=== PATIENT | female | born 1970 | race Caucasian/White ===

== ENCOUNTER 2016-09-28 10:56 | Outpatient (CLI) | payer MEDICARE, MEDICAID | END 2016-09-28 10:57 | disposition home or self-care (01) | DX: R10.9 Unspecified abdominal pain (principal); K76.0 Fatty (change of) liver, not elsewhere classified ==

== ENCOUNTER 2016-09-28 19:23 | Emergency (ER) | payer MEDICARE, MEDICAID ==
[2016-09-28] MEDS ORDERED: traMADol 50 MG TABLET PO STA (20:59)
[2016-09-28] MEDS ORDERED: CLINDAMYCIN 150 MG CAPSULE PO STA (21:00)
[2016-09-28] MEDS ORDERED: traMADol 50 MG TABLET PO ONE (21:06)
[2016-09-28] MEDS ORDERED: CLINDAMYCIN 150 MG CAPSULE PO ONE (21:07)
== END 2016-09-28 21:40 | disposition home or self-care (01) ==
DX: N90.7 Vulvar cyst (principal); B37.3 Candidiasis of vulva and vagina; F17.200 Nicotine dependence, unspecified, uncomplicated; R10.9 Unspecified abdominal pain; K76.0 Fatty (change of) liver, not elsewhere classified
CPT/HCPCS: 76700; 87210; 87491; 87591; 99283; A9270

== ENCOUNTER 2016-10-04 13:34 | Outpatient (CLI) | payer MEDICARE, MEDICAID | END 2016-10-04 13:35 | disposition home or self-care (01) | DX: R10.9 Unspecified abdominal pain (principal) ==

== ENCOUNTER 2017-01-30 11:04 | Outpatient (CLI) | payer MEDICARE, MEDICAID ==
--- NOTE | 2017-01-30 15:52 | Mammography Report ---
DIGITAL BILATERAL DIAGNOSTIC MAMMOGRAM: 01/30/2017 CLINICAL HISTORY: A 46-year-old female who has pain in the 10 to 11 o'clock position of the left breast. TECHNIQUE: Craniocaudad and oblique lateral views of each breast were obtained with Hologic full-field digital mammography. To complement the exam, a mediolateral view of the left breast was also obtained. COMPARISON: 12/04/2008 FINDINGS: Breasts are almost entirely composed of fat. No significant clusters of calcification are seen. There is a 0.5 cm diameter well circumscribed benign- appearing mass in the inner inferior aspect of the left breast at the 9 o'clock position 6-7 cm medial to the left nipple. This finding was present on preceding exam. It most likely represents a benign Intramammary lymph node. Considering patient does have clinical symptoms in the breast, suggest a left breast ultrasound to complement the present study. Ultrasound can show abnormalities not demonstrable mammography, especially in patients who are clinically asymptomatic. IMPRESSION: NO SIGNIFICANT ABNORMALITY IS DETECTED ON MAMMOGRAPHY. NO SIGNIFICANT CHANGE IS NOTED COMPARED TO 12/04/2008. FOR REASONS DISCUSSED ABOVE, RECOMMEND A LEFT BREAST ULTRASOUND TO COMPLEMENT THE PRESENT EXAM. BI-RADS category 0, incomplete. Needs additional imaging evaluation - left breast ultrasound. COMMENT: Patient did not want to wait today for the left breast ultrasound. She indicated she will call and reschedule the left breast ultrasound for another day. STANDARD QUALIFYING STATEMENTS 1. This examination was reviewed with the aid of Computer-Aided Detection (CAD). 2. A negative or benign imaging report should not delay biopsy if clinically suspicious findings are present. Consider surgical consultation if warranted. More than 5% of cancers are not identified by imaging. 3. Dense breasts may obscure an underlying neoplasm. MTDD
== END 2017-01-30 11:05 | disposition home or self-care (01) ==
LOC: DI 11:04
PROVIDERS: ATTEND Nurse Practitioner Gerontology
DX: N64.4 Mastodynia (principal); N63 Unspecified lump in breast
CPT/HCPCS: 77066

== ENCOUNTER 2017-02-20 10:04 | Outpatient (CLI) | payer MEDICARE, MEDICAID ==
--- NOTE | 2017-02-20 15:47 | Ultrasound Report ---
ULTRASOUND LEFT BREAST: 02/20/2017 CLINICAL INDICATION: Localized tenderness left upper inner quadrant. TECHNIQUE: Real-time scanning was performed with ambulatory services representative static images obtained. FINDINGS: Ultrasound of the region of tenderness identified by the patient was performed. Unremarka ble parenchymal lobules are present. No discrete solid or cystic lesion is identified. IMPRESSION: NEGATIVE EXAMINATION. RECOMMENDATION: Routine annual screening unless otherwise clinically indicated. BI-RADS category 1, negative. STANDARD QUALIFYING STATEMENTS 1. This examination was reviewed with the aid of Computer-Aided Detection (CAD). 2. A negative or benign imaging report should not delay biopsy if clinically suspicious findings are present. Consider surgical consultation if warranted. More than 5% of cancers are not identified by i maging. 3. Dense breasts may obscure an underlying neoplasm. JOB #: [id number] EXT JOB #:
== END 2017-02-20 10:05 | disposition home or self-care (01) ==
LOC: DI 10:04
PROVIDERS: ATTEND Nurse Practitioner Gerontology
DX: N64.4 Mastodynia (principal)
CPT/HCPCS: 76642

== ENCOUNTER 2017-03-31 11:48 | Outpatient (CLI) | payer MEDICARE, MEDICAID ==
[2017-03-31 19:12] LABS: ALBUMIN/GLOBULIN RATIO 1.4 (1.0-2.2); BILIRUBIN,TOTAL 0.2 mg/dL (0.2-1.0); BUN - BLOOD UREA NITROGEN < 5 mg/dL (6-20); CALCIUM 8.8 mg/dL (8.5-10.3); CARBON DIOXIDE - CO2 25 mmol/L (21-32); CHLORIDE 106 mmol/L (101-111); CREATININE 0.9 mg/dL (0.4-1.0); GFR - MDRD 67 (>89); GLUCOSE 85 mg/dL (70-100); POTASSIUM 4.2 mmol/L (3.5-5.0); SODIUM 137 mmol/L (135-145); TOTAL PROTEIN 7.2 g/dL (6.7-8.2)
== END 2017-03-31 11:49 | disposition home or self-care (01) ==
LOC: LAB.N 11:48
PROVIDERS: ATTEND Nurse Practitioner Gerontology
DX: Z79.899 Other long term (current) drug therapy (principal)
CPT/HCPCS: 36415; 80053; 80178; 84443

== ENCOUNTER 2017-05-22 23:24 | Emergency (ER) | payer MEDICARE, MEDICAID ==
--- NOTE | 2017-05-22 23:44 | ED Physician Documentation ---
PD HPI LOWER EXT INJURY - Stated complaint Stated Complaint: LT FOOT INJURY - Chief complaint Chief Complaint: Trauma Ext - History obtained from History obtained from: Patient - History of Present Illness PD HPI LOW EXT INJURY LOCATION: Left, Foot Type of injury: Crush Where injury occurred: Home Timing - onset: Today (tonight) Timing - details: Abrupt onset Pain level now: 4 Improved by: Rest Worsened by: Moving, Palpating Associated symptoms: Swelling Similar symptoms before: Has not had sx before - Additional information Additional information: dropped cases of bottled water on her left foot tonight, c/o left foot pain and swelling Review of Systems Musculoskeletal: reports: Extremity pain, Pain with weight bearing Neurologic: denies: Focal weakness, Numbness PD PAST MEDICAL HISTORY - Past Medical History Cardiovascular: None Respiratory: Asthma Neuro: None Endocrine/Autoimmune: None GI: GERD, 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 HEENT: None Psych: Bipolar disorder, Schizophrenia, Post traumatic stress disorder Musculoskeletal: Chronic back pain Derm: None - Past Surgical History Past Surgical History: Yes General: Appendectomy Ortho: 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 - Present Medications Home Medications: Ambulatory Orders Medication Instructions Recorded Confirmed Albuterol [Ventolin Hfa] 2 puffs INH Q4H PRN #1 inhaler 05/30/13 05/22/17 Lamotrigine [Lamictal] 100 mg ORAL DAILY 09/09/15 05/22/17 Mupirocin 2% Oint [Bactroban 2% 1 gm WILY BID #1 tube 09/09/15 05/22/17 Oint] Prazosin [Minipress] 2 mg ORAL QPM 09/09/15 05/22/17 QUEtiapine [SEROquel] 50 mg ORAL QPM 09/09/15 05/22/17 Ranitidine HCl [Zantac] 150 mg ORAL BID 09/09/15 05/22/17 Ziprasidone HCl 80 mg ORAL QPM 09/09/15 05/22/17 Albuterol Sulfate [Proair Hfa 8.5 gm IH QID #1 hfa.aer.ad 09/20/15 05/22/17 Inhaler] predniSONE [Deltasone] 40 mg PO DAILY 5 Days 09/20/15 05/22/17 Clindamycin HCl 300 mg PO Q6HR 10 Days 12/22/15 05/22/17 Lorazepam [Ativan] 1 mg PO TID PRN #10 tablet 06/16/16 05/22/17 Magic Mouthwash 10 ml PO Q4H PRN #200 ml 07/11/16 05/22/17 Fluconazole [Diflucan] 150 mg PO ONCE #1 tablet 09/28/16 05/22/17 Tramadol HCl 50 mg PO Q6H PRN #15 tablet 09/28/16 05/22/17 - Allergies Allergies/Adverse Reactions: Allergies Allergy/AdvReac Type Severity Reaction Status Date / Time amoxicillin [Amoxicillin] Allergy Intermediate Emesis Verified 05/22/17 23:26 NSAIDS (Non-Steroidal Allergy Unknown Verified 05/22/17 23:26 Anti-Inflamma naproxen [From Naprosyn] AdvReac Intermediate Hives Verified 05/22/17 23:26 hydrocodone bitartrate * AdvReac Emesis Verified 05/22/17 23:26 [From Vicodin] - Social History Does the pt smoke?: Yes Smoking Status: Current every day smoker Does the pt drink ETOH?: No Does the pt have substance abuse?: No - Immunizations Immunizations are current?: Yes - POLST Patient has POLST: No PD ED PE NORMAL - Vitals Vital signs reviewed: Yes - General General: Alert and oriented X 3, No acute distress, Well developed/nourished - Extremities Extremities: Normal ROM s pain PD ED PE EXPANDED - Extremities Feet visual: 1 - abrasion, swelling, tenderness Results - Vitals Vitals: Vital Signs - 24 hr 05/22/17 05/23/17 23:25 00:39 Temperature 35.8 C L Heart Rate 109 H 90 Respiratory 17 16 Rate Blood Pressure 128/86 H 124/70 O2 Saturation 97 100 Oxygen O2 Source Room air - Rads (name of study) left foot xrays Radiology: Prelim report reviewed, See rad report PD MEDICAL DECISION MAKING - ED course Complexity details: reviewed results, re-evaluated patient, considered differential, d/w patient, d/w family Departure - Departure Disposition: 01 Home, Self Care Clinical Impression: Injury of foot, Abrasion Condition: Good Instructions: ED Abrasion, ED Contusion Foot Discharge Date/Time: 05/23/17 00:40
--- NOTE | 2017-05-23 00:06 | XRAY Preliminary Report ---
Exam: XR Foot 3 View LT IMPRESSION: 1. No evidence for fractures. 2. Slight irregularity of the medial navicular which is stable since 03/19/2015. [facility] SITE ID: [id number]
--- NOTE | 2017-05-23 00:15 | XRAY Report ---
EXAM: LEFT FOOT RADIOGRAPHY EXAM DATE: 05/22/2017 11:48 PM. CLINICAL HISTORY: Dropped 2 cases of bottled water. COMPARISON: 03/19/2015. TECHNIQUE: 3 views. FINDINGS: Bones: Normal. No fractures or bone lesions. Slight irregularity of the medial navicular, stable sinc e 03/19/2015. Joints: Normal. No subluxations. Soft Tissues: Normal. No soft tissue swelling. IMPRESSION: 1. No evidence for fractures. 2. Slight irregularity of the medial navicular which is stable since 03/19/2015. [facility] Referring Provider Line: [phone] SITE ID: [id number]
[2017-05-23] MEDS ORDERED: IBUPROFEN 600 MG TABLET PO STA (00:24)
[2017-05-23] MEDS ORDERED: BACITRACIN OINT TOP STA (00:29)
[2017-05-23] MEDS ORDERED: HYDROcod/ACET 5/325 Prepack 6 PO STA (00:29)
[2017-05-23] MEDS ORDERED: HYDROcod/ACET 5/325 Prepack 6 PO ONE (00:35)
[2017-05-23] MEDS ORDERED: IBUPROFEN 600 MG TABLET PO ONE (00:35)
[2017-05-23 00:40] VITALS: BP 124/70
== END 2017-05-23 00:40 | disposition home or self-care (01) ==
LOC: ED 23:24
DX: S90.812A Abrasion, left foot, initial encounter (principal); W22.8XXA Striking against or struck by other objects, initial encounter; Y92.009 Unspecified place in unspecified non-institutional (private) residence as the place of occurrence of the external cause; F17.200 Nicotine dependence, unspecified, uncomplicated
CPT/HCPCS: 73630; 99283; A9270

== ENCOUNTER 2017-07-02 00:11 | Emergency (ER) | payer MEDICARE, MEDICAID ==
[2017-07-02 00:17] VITALS: BP 135/90
[2017-07-02] MEDS ORDERED: diphenhydrAMINE 25 MG CAPSULE PO STA (00:35)
[2017-07-02] MEDS ORDERED: diphenhydrAMINE 25 MG CAPSULE PO ONE (00:44)
--- NOTE | 2017-07-02 00:47 | ED Physician Documentation ---
PD HPI SKIN - Stated complaint Stated Complaint: L ARM PX - Chief complaint Chief Complaint: Ext Problem - History obtained from History obtained from: Patient, Family - History of Present Illness Timing - onset: Yesterday Timing - duration: Days Timing - details: Gradual onset, Still present Location: LUE Quality / character: Painful, Swelling Associated symptoms: No: Fever, Joint pain, Headache, Facial swelling Contributing factors: Exposed to medication Similar symptoms before: Has not had sx before Recently seen: Not recently seen - Additional information Additional information: Patient is a 47 year old female with no significant past medical history who is presenting to the emergency department for a reaction to multiple vaccines. Patient states that the had the pneumovax, shingles, tdap all on . patient states that she has still having pain, itching and worsening redness and swelling in the region so she came in for evaluation. Review of Systems Constitutional: denies: Fever, Chills Eyes: denies: Decreased vision Ears: denies: Ear pain Nose: denies: Congestion Throat: denies: Dental pain / toothache, Oral lesions / sores Cardiac: denies: Chest pain / pressure, Palpitations Respiratory: denies: Dyspnea, Cough, Wheezing GI: denies: Nausea, Vomiting : reports: Reviewed and negative Skin: reports: Rash, Lesions Musculoskeletal: reports: Extremity pain Neurologic: denies: Generalized weakness, Focal weakness, Numbness Immunocompromised: denies: Immunocompromised PD PAST MEDICAL HISTORY - Past Medical History Past Medical History: Yes Cardiovascular: None Respiratory: Asthma Neuro: None Endocrine/Autoimmune: None GI: GERD, 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 HEENT: None Psych: Bipolar disorder, Schizophrenia, Post traumatic stress disorder Musculoskeletal: Chronic back pain Derm: None - Past Surgical History Past Surgical History: Yes General: Appendectomy 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: 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 - Present Medications Home Medications: Ambulatory Orders Medication Instructions Recorded Confirmed Albuterol [Ventolin Hfa] 2 puffs INH Q4H PRN #1 inhaler 05/30/13 05/22/17 Lamotrigine [Lamictal] 100 mg ORAL DAILY 09/09/15 05/22/17 Mupirocin 2% Oint [Bactroban 2% 1 gm WILY BID #1 tube 09/09/15 05/22/17 Oint] Prazosin [Minipress] 2 mg ORAL QPM 09/09/15 05/22/17 QUEtiapine [SEROquel] 50 mg ORAL QPM 09/09/15 05/22/17 Ranitidine HCl [Zantac] 150 mg ORAL BID 09/09/15 05/22/17 Ziprasidone HCl 80 mg ORAL QPM 09/09/15 05/22/17 Albuterol Sulfate [Proair Hfa 8.5 gm IH QID #1 hfa.aer.ad 09/20/15 05/22/17 Inhaler] predniSONE [Deltasone] 40 mg PO DAILY 5 Days tablet 09/20/15 05/22/17 Clindamycin HCl 300 mg PO Q6HR 10 Days capsule 12/22/15 05/22/17 Lorazepam [Ativan] 1 mg PO TID PRN #10 tablet 06/16/16 05/22/17 Magic Mouthwash 10 ml PO Q4H PRN #200 ml 07/11/16 05/22/17 Fluconazole [Diflucan] 150 mg PO ONCE #1 tablet 09/28/16 05/22/17 Tramadol HCl 50 mg PO Q6H PRN #15 tablet 09/28/16 05/22/17 Cephalexin [Keflex] 500 mg PO Q6H 7 Days capsule 07/02/17 diphenhydrAMINE [Benadryl] 25 mg PO Q4-6H #20 capsule 07/02/17 - Allergies Allergies/Adverse Reactions: Allergies Allergy/AdvReac Type Severity Reaction Status Date / Time amoxicillin [Amoxicillin] Allergy Intermediate Emesis Verified 07/02/17 00:17 NSAIDS (Non-Steroidal Allergy Unknown Verified 07/02/17 00:17 Anti-Inflamma naproxen [From Naprosyn] AdvReac Intermediate Hives Verified 07/02/17 00:17 hydrocodone bitartrate * AdvReac Emesis Verified 07/02/17 00:17 [From Vicodin] - Social History Does the pt smoke?: Yes Smoking Status: Current every day smoker Does the pt drink ETOH?: No Does the pt have substance abuse?: No - Immunizations Immunizations are current?: Yes - POLST Patient has POLST: No PD ED PE NORMAL - Vitals Vital signs reviewed: Yes - General General: Alert and oriented X 3, No acute distress - HEENT HEENT: Atraumatic, PERRL - Neck Neck: Supple, no meningeal sign - Cardiac Cardiac: RRR, No murmur - Respiratory Respiratory: No respiratory distress, Clear bilaterally - Abdomen Abdomen: Soft, Non tender, Non distended - Neuro Neuro: Alert and oriented X 3, No motor deficit, No sensory deficit, Normal speech - Psych Psych: Normal mood, Normal affect PD ED PE EXPANDED - Extremities Extremities: Left arm (erythema tenderness and swelling of left posterior upper extremity, approximately 6cm by 4cm) Results - Vitals Vitals: Vital Signs - 24 hr 07/02/17 00:14 Temperature 36 C L Heart Rate 97 Respiratory 20 Rate Blood Pressure 135/90 H O2 Saturation 96 Oxygen O2 Source Room air PD MEDICAL DECISION MAKING - ED course Complexity details: reviewed old records, reviewed results, re-evaluated patient , considered differential, d/w patient, d/w family ED course: Patient was seen and examined at bedside. patient's arm was examined and was likely a localized reaction. Patient was treated with benadryl and given detailed discharge and return instructions. Patient required no further inpatient work up and was stable for discharge with outpatient follow up. Departure - Departure Disposition: 01 Home, Self Care Clinical Impression: Post-immunization reaction Condition: Good Instructions: ED Drug React Allergic Follow-Up: Cuca Glavin ARNP [Primary Care Provider] - Within 3 Days Prescriptions: Cephalexin [Keflex] 500 mg PO Q6H 7 Days capsule diphenhydrAMINE [Benadryl] 25 mg PO Q4-6H #20 capsule Comments: Your symptoms today are likely secondary to local reaction to the vaccines you received. While this is the most likely scenario, it could be an early skin infection. You will need to monitor the injection site and apply warm compresses. You can take benadryl as needed for itching. You should follow up at your appointment this week. You should not start antibiotics unless you get streaking redness, or are evaluated by your doctor. You may return to the emergency department at any time for worsening symptoms.
== END 2017-07-02 01:04 | disposition home or self-care (01) ==
LOC: ED 00:11
DX: M79.602 Pain in left arm (principal); T88.1XXA Other complications following immunization, not elsewhere classified, initial encounter; J45.909 Unspecified asthma, uncomplicated; K21.9 Gastro-esophageal reflux disease without esophagitis; F17.200 Nicotine dependence, unspecified, uncomplicated
CPT/HCPCS: 99283; A9270

== ENCOUNTER 2017-09-13 16:28 | Emergency (ER) | payer MEDICARE, MEDICAID ==
--- NOTE | 2017-09-13 16:56 | ED Physician Documentation ---
PD HPI ABD PAIN - Stated complaint Stated Complaint: AB/BACK PX - Chief complaint Chief Complaint: Abd Pain - History obtained from History obtained from: Patient - History of Present Illness Timing - onset: How many weeks ago (1) Timing - duration: Weeks (1) Timing - details: Gradual onset Pain level max: 8 Pain level now: 6 Quality: Aching, Pain Location: RUQ, RLQ Radiation: Other (non-radiating) Improved by: Laying still Worsened by: Moving, Palpation Associated symptoms: No: Fever, Nausea, Vomiting, Hematemesis, Diarrhea, Constipation, Melena, Hematochezia, Dysuria, Hematuria, Chest pain, Dizzy Similar symptoms before: Has not had sx before Recently seen: Not recently seen - Additional information Additional information: states normally has diarrhea, but lately has small firm stools. no fevers. Also slipped and fell on the ice a few days ago, but is having increased back pain now. 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 HEENT: None Psych: Bipolar disorder, Schizophrenia, Post traumatic stress disorder Musculoskeletal: Chronic back pain Derm: None - Past Surgical History Past Surgical History: Yes General: Appendectomy 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 - Present Medications Home Medications: Ambulatory Orders Medication Instructions Recorded Confirmed Mupirocin 2% Oint [Bactroban 2% 1 gm WILY BID #1 tube 09/09/15 09/13/17 Oint] Prazosin [Minipress] 2 mg ORAL QPM 09/09/15 09/13/17 QUEtiapine [SEROquel] 50 mg ORAL QPM 09/09/15 09/13/17 Ranitidine HCl [Zantac] 150 mg ORAL BID 09/09/15 09/13/17 Ziprasidone HCl 80 mg ORAL QPM 09/09/15 09/13/17 Albuterol Sulfate [Proair Hfa 8.5 gm IH QID #1 hfa.aer.ad 09/20/15 09/13/17 Inhaler] Lorazepam [Ativan] 1 mg PO TID PRN #10 tablet 06/16/16 09/13/17 Trazodone HCl 400 mg PO DAILY PM 09/13/17 09/13/17 traMADol [Ultram] 50 - 100 mg PO Q6H PRN #20 tablet 09/13/17 - Allergies Allergies/Adverse Reactions: Allergies Allergy/AdvReac Type Severity Reaction Status Date / Time amoxicillin [Amoxicillin] Allergy Intermediate Emesis Verified 09/13/17 16:34 NSAIDS (Non-Steroidal Allergy Unknown Verified 09/13/17 16:34 Anti-Inflamma naproxen [From Naprosyn] AdvReac Intermediate Hives Verified 09/13/17 16:34 hydrocodone bitartrate * AdvReac Emesis Verified 09/13/17 16:34 [From Vicodin] - Social History Does the pt smoke?: Yes Smoking Status: Current every day smoker Does the pt drink ETOH?: No Does the pt have substance abuse?: No - Immunizations Immunizations are current?: Yes - POLST Patient has POLST: No PD ED PE NORMAL - Vitals Vital signs reviewed: Yes - General General: Alert and oriented X 3, No acute distress - HEENT HEENT: Moist mucous membranes - Neck Neck: Supple, no meningeal sign - Cardiac Cardiac: RRR - Respiratory Respiratory: No respiratory distress, Clear bilaterally - Abdomen Abdomen: Soft, Non distended, Other (TTP RUQ. + saldaña's sign) - Back Back: No CVA TTP, No spinal TTP - Derm Derm: Warm and dry, No rash - Extremities Extremities: No deformity, No tenderness to palpate, Normal ROM s pain, No edema - Neuro Neuro: Alert and oriented X 3, No motor deficit, No sensory deficit - Psych Psych: Normal mood, Normal affect Results - Vitals Vitals: Vital Signs - 24 hr 09/13/17 09/13/17 09/13/17 16:30 19:49 20:47 Temperature 36.0 C L 36.2 C L 36.6 C Heart Rate 102 H 88 98 Respiratory 18 16 18 Rate Blood Pressure 144/98 H 147/110 H 155/107 H O2 Saturation 99 94 97 Oxygen O2 Source Room air - Labs Labs: Laboratory Tests 09/13/17 09/13/17 09/13/17 16:42 17:20 17:20 WBC 12.0 H RBC 4.33 Hgb 12.1 Hct 36.9 L MCV 85.2 MCH 27.9 MCHC 32.8 RDW 22.6 H Plt Count 332 MPV 6.7 L Neut # 8.8 H Lymph # 2.4 [place] # 0.6 Eos # 0.1 Baso # 0.1 Absolute Nucleated RBC 0.01 Nucleated RBC % 0.1 Manual Slide Review Indicated Platelet Estimate NORMAL (130-450,000) Platelet Morphology NORMAL APPEARANCE RBC Morph Micro Appear 1+ TARGET CELLS Sodium 137 Potassium 4.1 Chloride 102 Carbon Dioxide 25 Anion Gap 10.0 BUN 8 Creatinine 0.9 Estimated GFR (MDRD) 67 L Glucose 104 H Calcium 9.2 Total Bilirubin 0.7 AST 24 ALT 27 Alkaline Phosphatase 81 Total Protein 7.7 Albumin 4.4 Globulin 3.3 Albumin/Globulin Ratio 1.3 Lipase 20 L Urine Color YELLOW Urine Clarity CLEAR Urine pH 6.0 Ur Specific [place] 1.025 Urine Protein NEGATIVE Urine Glucose (UA) NEGATIVE Urine Ketones NEGATIVE Urine Occult Blood NEGATIVE Urine Nitrite NEGATIVE Urine Bilirubin NEGATIVE Urine Urobilinogen 0.2 (NORMAL) Ur Leukocyte Esterase NEGATIVE Ur Microscopic Review NOT INDICATED Urine Culture Comments NOT INDICATED Urine HCG, Qual NEGATIVE - Rads (name of study) RUQ US Radiology: Prelim report reviewed, EMP read contemporaneously, See rad report ( Negative right upper quadrant ultrasound. ) CT abd/pelvis Radiology: Prelim report reviewed, EMP read contemporaneously, See rad report ( Fatty liver. No bowel obstruction, fluid collection or acute inflammatory process. ) PD MEDICAL DECISION MAKING - ED course Complexity details: reviewed results, re-evaluated patient, considered differential, d/w patient ED course: Patient is a 47 yo F with abd pain/back pain. Unclear etiology. Negative CT and US. Pain well controlled. Abdomen is soft, nontender nondistended on serial exam. She is well-appearing, nontoxic. Afebrile. No evidence of acute intra- abdominal abnormality. Will place on pain medications and see how she progresses. Patient counseled regarding signs and symptoms for which I believe and urgent re-evaluation would be necessary. Patient with good understanding of and agreement to plan and is comfortable going home at this time This document was made in part using voice recognition software. While efforts are made to proofread this document, sound alike and grammatical errors may occur. Departure - Departure Disposition: 01 Home, Self Care Clinical Impression: Abdominal pain Back pain Qualifiers: Back pain location: low back pain Chronicity: acute Back pain laterality: right Sciatica presence: without sciatica Qualified Code(s): M54.5 - Low back pain Condition: Good Instructions: ED Abdominal Pain Unkn Cause Follow-Up: Zan Ornelas MD [Primary Care Provider] - Prescriptions: traMADol [Ultram] 50 - 100 mg PO Q6H PRN #20 tablet PRN Reason: Abdominal Pain Comments: Return if you worsen. Do not drive or operate heavy machinery while taking tramadol. Discharge Date/Time: 09/13/17 20:55
[2017-09-13 16:58] LABS: BILIRUBIN,URINE NEGATIVE (NEGATIVE); GLUCOSE, URINE (UA) NEGATIVE (NEGATIVE); KETONES,URINE (UA) NEGATIVE (NEGATIVE); LEUKOCYTE ESTERASE, URINE NEGATIVE (NEGATIVE); NITRITE,URINE NEGATIVE (NEGATIVE); OCCULT BLOOD,URINE NEGATIVE (NEGATIVE); PROTEIN,URINE NEGATIVE (NEGATIVE); UROBILINOGEN,URINE 0.2 (NORMAL) E.U./dL (NORMAL)
[2017-09-13 17:02] LABS: CLARITY,URINE CLEAR (CLEAR); HCG UR QUAL NEGATIVE
[2017-09-13 17:30] LABS: BASOPHILS # (AUTO) 0.1 10^3/uL (0.0-0.1); BASOPHILS % (AUTO) 0.5 %; EOSINOPHILS # (AUTO) 0.1 10^3/uL (0.0-0.7); HGB - HEMOGLOBIN 12.1 g/dL (12.0-16.0); LYMPHOCYTES # (AUTO) 2.4 10^3/uL (1.5-3.5); LYMPHOCYTES % (AUTO) 20.1 %; MEAN CORPUSCULAR HEMOGLOBIN 27.9 pg (27.0-31.0); MEAN CORPUSCULAR HGB CONC 32.8 g/dL (32.0-36.0); MEAN CORPUSCULAR VOLUME 85.2 fL (81.0-99.0); MEAN PLATELET VOLUME 6.7 fL (7.9-10.8); MONOCYTES # (AUTO) 0.6 10^3/uL (0.0-1.0); MONOCYTES % (AUTO) 5.3 %; NEUTROPHILS # (AUTO) 8.8 10^3/uL (1.5-6.6); NEUTROPHILS % (AUTO) 73.1 %; PLT - PLATELET COUNT 332 10^3/uL (130-450); RED BLOOD COUNT 4.33 10^6/uL (4.20-5.40); RED CELL DISTRIBUTION WIDTH 22.6 % (12.0-15.0)
[2017-09-13 17:40] LABS: ALBUMIN 4.4 g/dL (3.2-5.5); ALBUMIN/GLOBULIN RATIO 1.3 (1.0-2.2); BILIRUBIN,TOTAL 0.7 mg/dL (0.2-1.0); CALCIUM 9.2 mg/dL (8.5-10.3); CREATININE 0.9 mg/dL (0.4-1.0); TOTAL PROTEIN 7.7 g/dL (6.7-8.2)
[2017-09-13 17:43] LABS: PLATELET ESTIMATE, MANUAL NORMAL (130-450,000) (NORMAL); PLATELET MORPHOLOGY NORMAL APPEARANCE (NORMAL)
[2017-09-13] MEDS ORDERED: MORPHINE 10 MG/ML VIAL IM STA (18:11)
[2017-09-13] MEDS ORDERED: IOPAMIDOL-300 100 ML VIAL ONE (19:19)
--- NOTE | 2017-09-13 19:27 | Ultrasound Report ---
EXAM: ABDOMEN ULTRASOUND LIMITED, RUQ EXAM DATE: 09/13/2017 07:06 PM. CLINICAL HISTORY: RUQ abd pain. COMPARISON: None. TECHNIQUE: Real-time scanning was performed with static images obtained. FINDINGS: Liver: Submitted images of liver demonstrate no focal lesions. Main portal vein flow: Hepatopetal. Gallbladder: No stones, wall thickening, or sonographic Whelan's sign. Biliary System: CBD measures 5 mm. No intrahepatic or extrahepatic ductal dilatation. Other: The visualized pancreas and right kidney are unremarkable. IMPRESSION: Negative right upper quadrant ultrasound. [facility] Referring Provider Line: [phone] SITE ID: [id number]
[2017-09-13] MEDS ORDERED: IOPAMIDOL-300 100 ML VIAL IVP ONE (19:44)
--- NOTE | 2017-09-13 20:37 | CT Report ---
EXAM: CT ABDOMEN AND PELVIS EXAM DATE: 09/13/2017 07:32 PM. CLINICAL HISTORY: R sided abd pain. COMPARISONS: 10/18/2013 CT abdomen and pelvis. TECHNIQUE: Routine helical CT imaging was performed through the abdomen and pelvis. IV contrast: ISOV UE 300 100mL. Enteric contrast: No. Reconstructions: Coronal and sagittal. In accordance with CT protocol optimization, one or more of the following dose reduction techniques w ere utilized for this exam: automated exposure control, adjustment of mA and/or KV based on patient s ize, or use of iterative reconstructive technique. FINDINGS: Lung Bases: Unremarkable. Liver: Decreased hepatic attenuation. No focal liver lesions. Gallbladder/Bile Ducts: Unremarkable. Spleen: Normal. Pancreas: Normal. Adrenal Glands: Normal. Kidneys: Normal. No masses or hydronephrosis. Peritoneal Cavity/Bowel: Normal. No free fluid, free air or adenopathy. No masses or acute inflammato ry process. The appendix is well visualized and normal. Pelvic Organs: Normal. The bladder and visualized pelvic organs are within normal limits. Vasculature: The uterus has been removed. No pelvic mass, lymphadenopathy or fluid collections. Bones: No significant abnormality. Other: Spinal stimulator leads noted at the T8-T9 level. IMPRESSION: 1. Fatty liver. 2. No bowel obstruction, fluid collection or acute inflammatory process. [facility] Referring Provider Line: [phone] SITE ID: [id number]
[2017-09-13] MEDS ORDERED: traMADol 50 MG TABLET PO STA (20:41)
[2017-09-13 20:48] VITALS: BP 155/107
== END 2017-09-13 20:55 | disposition home or self-care (01) ==
LOC: ED 16:28
DX: R10.11 Right upper quadrant pain (principal); R10.31 Right lower quadrant pain; M54.5 Low back pain; G89.29 Other chronic pain; F17.200 Nicotine dependence, unspecified, uncomplicated
CPT/HCPCS: 36415; 74177; 76705; 80053; 81003; 81025; 83690; 85025; 96372; 99283; 99284; A9270; Q9967; 81001; 87086

== ENCOUNTER 2017-09-21 15:15 | Outpatient (CLI) | payer MEDICARE, MEDICAID ==
[2017-09-21 19:13] LABS: BASOPHILS # (AUTO) 0.1 10^3/uL (0.0-0.1); BASOPHILS % (AUTO) 0.9 %; EOSINOPHILS # (AUTO) 0.2 10^3/uL (0.0-0.7); EOSINOPHILS % (AUTO) 2.2 %; LYMPHOCYTES # (AUTO) 2.8 10^3/uL (1.5-3.5); LYMPHOCYTES % (AUTO) 34.3 %; MEAN CORPUSCULAR HEMOGLOBIN 27.5 pg (27.0-31.0); MEAN CORPUSCULAR HGB CONC 31.7 g/dL (32.0-36.0); MEAN CORPUSCULAR VOLUME 86.9 fL (81.0-99.0); MEAN PLATELET VOLUME 7.3 fL (7.9-10.8); MONOCYTES # (AUTO) 0.5 10^3/uL (0.0-1.0); MONOCYTES % (AUTO) 6.1 %; NEUTROPHILS # (AUTO) 4.6 10^3/uL (1.5-6.6); NEUTROPHILS % (AUTO) 56.5 %; PLT - PLATELET COUNT 333 10^3/uL (130-450); RED BLOOD COUNT 4.35 10^6/uL (4.20-5.40); RED CELL DISTRIBUTION WIDTH 21.5 % (12.0-15.0); WHITE BLOOD COUNT 8.1 x10^3/uL (4.8-10.8)
[2017-09-21 19:26] LABS: PLATELET ESTIMATE, MANUAL NORMAL (130-450,000) (NORMAL); PLATELET MORPHOLOGY NORMAL APPEARANCE (NORMAL)
[2017-09-21 19:31] LABS: ALBUMIN 4.4 g/dL (3.2-5.5); ALBUMIN/GLOBULIN RATIO 1.3 (1.0-2.2); BILIRUBIN,TOTAL 0.2 mg/dL (0.2-1.0); CALCIUM 9.2 mg/dL (8.5-10.3); CREATININE 0.9 mg/dL (0.4-1.0); TOTAL PROTEIN 7.7 g/dL (6.7-8.2)
== END 2017-09-21 15:16 | disposition home or self-care (01) ==
LOC: LAB.WCP 15:15
PROVIDERS: ATTEND Family Medicine
DX: R19.7 Diarrhea, unspecified (principal)
CPT/HCPCS: 36415; 80053; 85025

== ENCOUNTER 2017-09-22 08:00 | Outpatient (CLI) | payer MEDICARE, MEDICAID | END 2017-09-22 08:01 | disposition home or self-care (01) | LOC: LAB.WCP 08:00 | PROVIDERS: ATTEND Family Medicine | DX: R19.7 Diarrhea, unspecified (principal) | CPT/HCPCS: 81599; 83630; 87045; 87046; 87329; 87493 ==

== ENCOUNTER 2018-01-15 12:05 | Emergency (ER) | payer MEDICARE, MEDICAID ==
[2018-01-15 12:14] VITALS: BP 115/80
--- NOTE | 2018-01-15 13:44 | ED Physician Documentation ---
PD HPI BACK PAIN - Stated complaint Stated Complaint: BACK PAIN - Chief complaint Chief Complaint: Back Pain - History obtained from History obtained from: Patient - History of Present Illness Timing - onset: How many weeks ago (1) Timing - duration: Weeks (1) Timing - details: Gradual onset, Still present, Waxing and waning Location: Lower, Right Quality: Pain, Spasm, Aching Associated symptoms: Other (pain radiates down right posterior leg. She has nerve stimulator which helps but it stopped working a week ago. Has been in for about 5-6 years, per pateint. Calling the back specialist in [facility] about it to get appt (consider battery needs replacing).). 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 : None HEENT: None Psych: Bipolar disorder, Schizophrenia, Post traumatic stress disorder Musculoskeletal: Chronic back pain Derm: None - Past Surgical History Past Surgical History: Yes General: Appendectomy Ortho: 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: 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 - Present Medications Home Medications: Ambulatory Orders Medication Instructions Recorded Confirmed Prazosin [Minipress] 2 mg ORAL QPM 09/09/15 09/13/17 QUEtiapine [SEROquel] 50 mg ORAL QPM 09/09/15 09/13/17 Ranitidine HCl [Zantac] 150 mg ORAL BID 09/09/15 09/13/17 Ziprasidone HCl 80 mg ORAL QPM 09/09/15 09/13/17 Albuterol Sulfate [Proair Hfa 8.5 gm IH QID #1 hfa.aer.ad 09/20/15 09/13/17 Inhaler] Lorazepam [Ativan] 1 mg PO TID PRN #10 tablet 06/16/16 09/13/17 Trazodone HCl 400 mg PO DAILY PM 09/13/17 09/13/17 traMADol [Ultram] 50 - 100 mg PO Q6H PRN #20 tablet 09/13/17 Dexamethasone [Decadron] 4 mg PO DAILY #5 tablet 01/15/18 Methocarbamol [Robaxin] 500 mg PO TID #20 tablet 01/15/18 Tramadol HCl 50 mg PO Q6H PRN #20 tablet 01/15/18 - Allergies Allergies/Adverse Reactions: Allergies Allergy/AdvReac Type Severity Reaction Status Date / Time amoxicillin [Amoxicillin] Allergy Intermediate Emesis Verified 01/15/18 12:13 NSAIDS (Non-Steroidal Allergy Unknown Verified 01/15/18 12:13 Anti-Inflamma naproxen [From Naprosyn] AdvReac Intermediate Hives Verified 01/15/18 12:13 hydrocodone bitartrate * AdvReac Emesis Verified 01/15/18 12:13 [From Vicodin] - Social History Does the pt smoke?: Yes Smoking Status: Current every day smoker Does the pt drink ETOH?: No Does the pt have substance abuse?: No - Immunizations Immunizations are current?: Yes - POLST Patient has POLST: No PD ED PE NORMAL - Vitals Vital signs reviewed: Yes - General General: Alert and oriented X 3, No acute distress, Well developed/nourished - Cardiac Cardiac: RRR, No murmur - Respiratory Respiratory: Clear bilaterally - Abdomen Abdomen: Soft, Non tender - Back Back: No CVA TTP, No spinal TTP (but is tender in lower lateral muscles, more on the right. ) - Derm Derm: Normal color, Warm and dry, No rash - Extremities Extremities: No deformity, No tenderness to palpate, Normal ROM s pain, No edema , No calf tenderness / cord - Neuro Neuro: Alert and oriented X 3, No motor deficit, Normal speech Results - Vitals Vitals: Oxygen O2 Source Room air PD MEDICAL DECISION MAKING - ED course Complexity details: reviewed old records (has not been to ER often and ALEJANDRA does not have abberant visits.), considered differential, d/w patient Departure - Departure Disposition: 01 Home, Self Care Clinical Impression: Acute exacerbation of chronic low back pain Condition: Stable Record reviewed to determine appropriate education?: Yes Instructions: ED Sciatica Prescriptions: Dexamethasone [Decadron] 4 mg PO DAILY #5 tablet Methocarbamol [Robaxin] 500 mg PO TID #20 tablet Tramadol HCl 50 mg PO Q6H PRN #20 tablet PRN Reason: Pain Comments: Continue usual medications. I had Robaxin muscle relaxant 3 times a day if needed for spasms and stiffness. Decadron anti-inflammatory daily for 5 more days and add Tylenol or tramadol if needed for pains. Follow-up with your back specialist, call for an appointment to see if they can fix the back stimulator. Discharge Date/Time: 01/15/18 14:07
[2018-01-15] MEDS ORDERED: traMADol 50 MG TABLET PO STA (13:55)
[2018-01-15] MEDS ORDERED: METHOCARBAMOL 500 MG TABLET PO STA (13:55)
[2018-01-15] MEDS ORDERED: DEXAMETHASONE 10 MG/ML VIAL PO STA (13:55)
== END 2018-01-15 14:07 | disposition home or self-care (01) ==
LOC: ED 12:05
DX: M54.5 Low back pain (principal); G89.29 Other chronic pain; F17.200 Nicotine dependence, unspecified, uncomplicated
CPT/HCPCS: 99283; A9270

== ENCOUNTER 2018-04-25 21:55 | Emergency (ER) | payer MEDICARE, MEDICAID ==
--- NOTE | 2018-04-25 22:04 | ED Physician Documentation ---
PD HPI BACK PAIN - Stated complaint Stated Complaint: POST SURGERY BACK PX - Chief complaint Chief Complaint: Back Pain - History obtained from History obtained from: Patient - History of Present Illness Timing - onset: How many weeks ago (1-2) Timing - details: Gradual onset, Waxing and waning Location: Lower, Right Quality: Pain Associated symptoms: No: Fever, Weakness, Numbness, Incontinent of urine, Unable to urinate, Incontinent of stool Improves with: Rest Worsened by: Movement, Palpation Recently seen: Other (see below) - Additional information Additional information: patient has had spinal cord stimulator in place for chronic back pain, and had the unit (but not the wires) replaced 2 weeks ago. Her post-operative pain was being managed with oxycodone and then tramadol. She says the pain in the area of the unit has gradually been worsening over the past 7-10 days and she feels the stimulator has been steadily bulging out from her back more and more, as well as displacing from the area it was inserted (she feels it is slowly moving laterally). Denies fever, denies injury. Called [facility] pain clinic earlier today (she says the procedure was performed in the clinic), but did not hear back from them. She then contacted [facility] (the device hand stamper), who recommended she come to ED for evaluation. Took tramadol tonight without relief. 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 HEENT: None Psych: Bipolar disorder, Schizophrenia, Post traumatic stress disorder Musculoskeletal: Chronic back pain Derm: None - Past Surgical History Past Surgical History: Yes General: Appendectomy 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 - Present Medications Home Medications: Ambulatory Orders Medication Instructions Recorded Confirmed Prazosin [Minipress] 2 mg ORAL QPM 09/09/15 09/13/17 QUEtiapine [SEROquel] 50 mg ORAL QPM 09/09/15 09/13/17 Ranitidine HCl [Zantac] 150 mg ORAL BID 09/09/15 09/13/17 Ziprasidone HCl 80 mg ORAL QPM 09/09/15 09/13/17 Albuterol Sulfate [Proair Hfa 8.5 gm IH QID #1 hfa.aer.ad 09/20/15 09/13/17 Inhaler] Lorazepam [Ativan] 1 mg PO TID PRN #10 tablet 06/16/16 09/13/17 Trazodone HCl 400 mg PO DAILY PM 09/13/17 09/13/17 traMADol [Ultram] 50 - 100 mg PO Q6H PRN #20 tablet 09/13/17 Dexamethasone [Decadron] 4 mg PO DAILY #5 tablet 01/15/18 Methocarbamol [Robaxin] 500 mg PO TID #20 tablet 01/15/18 Tramadol HCl 50 mg PO Q6H PRN #20 tablet 01/15/18 oxyCODONE/ACET 5/325 [Percocet 5 1 - 2 each PO Q6H PRN #14 tablet 04/26/18 mg/325 mg] - Allergies Allergies/Adverse Reactions: Allergies Allergy/AdvReac Type Severity Reaction Status Date / Time amoxicillin [Amoxicillin] Allergy Intermediate Emesis Verified 04/25/18 22:03 NSAIDS (Non-Steroidal Allergy Unknown Verified 04/25/18 22:03 Anti-Inflamma naproxen [From Naprosyn] AdvReac Intermediate Hives Verified 04/25/18 22:03 hydrocodone bitartrate * AdvReac Emesis Verified 04/25/18 22:03 [From Vicodin] - Social History Does the pt smoke?: Yes Smoking Status: Current every day smoker Does the pt drink ETOH?: No Does the pt have substance abuse?: No - Immunizations Immunizations are current?: Yes - POLST Patient has POLST: No PD ED PE NORMAL - Vitals Vital signs reviewed: Yes - General General: Alert and oriented X 3, No acute distress (NAD at rest, uncomfortable with palpation of lower back in area of the stimulator), Well developed/ nourished - Abdomen Abdomen: Soft, Non tender - Derm Derm: Normal color, Warm and dry, No rash - Neuro Neuro: Alert and oriented X 3, No motor deficit, No sensory deficit PD ED PE EXPANDED - Back Back visual: 1 - tenderness (incision site is C/D/I. the lower edge of the stimulator is palpable. There is no erythema, no abnormal tactile warmth, no fluctuance. There is tenderness with palpation of the area of the stimulator) Results - Vitals Vitals: Vital Signs - 24 hr 04/25/18 04/25/18 04/26/18 21:58 23:40 00:54 Temperature 36.4 C L 36.5 C Heart Rate 106 H 84 98 Respiratory 18 17 20 Rate Blood Pressure 139/97 H 104/75 148/85 H O2 Saturation 98 97 98 Oxygen O2 Source Room air - Rads (name of study) abdominal xray Radiology: Prelim report reviewed, See rad report PD MEDICAL DECISION MAKING - ED course Complexity details: reviewed results, re-evaluated patient, considered differential, d/w patient ED course: Given 10mg oxycodone, and on reevaluation, patient was standing at bedside and in NAD. She reported significant relief of pain, although still 5/10 (was 8/10) . Results of xray discussed, and physical exam is reassuring (does not suggest infection or acute neurologic or other emergent condition that would indicate further testing or treatment at this time). Encouraged to return if worse or other concerning signs/symptoms develop (such as fever, rash, weakness), and to call her doctor in the morning to arrange for next available appointment for reevaluation. - Sepsis Event Vital Signs: Vital Signs - 24 hr 04/25/18 04/25/18 04/26/18 21:58 23:40 00:54 Temperature 36.4 C L 36.5 C Heart Rate 106 H 84 98 Respiratory 18 17 20 Rate Blood Pressure 139/97 H 104/75 148/85 H O2 Saturation 98 97 98 Oxygen O2 Source Room air Departure - Departure Disposition: 01 Home, Self Care Clinical Impression: Pain due to nervous system prosthetic device, implant, or graft Condition: Good Instructions: ED Post Op Pain Prescriptions: oxyCODONE/ACET 5/325 [Percocet 5 mg/325 mg] 1 - 2 each PO Q6H PRN #14 tablet PRN Reason: Pain Comments: Contact the surgical group where the procedure was performed; they should reevaluate you as soon as possible. There does not appear to be an emergent problem tonight except for pain control, but you need to return to the emergency department if worse (such as worsening pain that is not controlled by the prescribed pain medication, redness at the surgical site, numbness or weakness, especially of your lower extremities, or fever of 100.4 or higher). Discharge Date/Time: 04/26/18 01:05
[2018-04-25] MEDS ORDERED: oxyCODONE 5 MG TABLET PO STA (22:36)
--- NOTE | 2018-04-25 23:48 | XRAY Report ---
Procedure Date: 04/25/2018 Accession Number: [id number] / [id number] Procedure: XR - Abdomen 1 View X-Ray CPT Code: 66909 FULL RESULT: EXAM: ABDOMEN RADIOGRAPHY EXAM DATE: 04/25/2018 11:18 PM. CLINICAL HISTORY: Nerve stimulator, assess leads. COMPARISON: XR ABDOMEN AP (KUB) 06/29/2011. TECHNIQUE: 1 view. FINDINGS: Bowel Gas Pattern: Within normal limits. No dilated loops. Other: Right midabdominal neurostimulator generator present. Wires appear intact with lead extending to the T9 level. IMPRESSION: Neurostimulator leads placed to T9 level. Nonobstructive bowel gas pattern. RADIA
[2018-04-26] MEDS ORDERED: oxyCODONE/ACET 5/325 Prepack 4 PO STA (00:51)
[2018-04-26 00:55] VITALS: BP 148/85
== END 2018-04-26 01:05 | disposition home or self-care (01) ==
LOC: ED 21:55
DX: T85.840A Pain due to nervous system prosthetic devices, implants and grafts, initial encounter (principal); F17.200 Nicotine dependence, unspecified, uncomplicated; J45.909 Unspecified asthma, uncomplicated
CPT/HCPCS: 74018; 99283; 99284; A9270

== ENCOUNTER 2018-05-18 09:18 | Outpatient (CLI) | payer MEDICARE, MEDICAID ==
[2018-05-18 09:38] LABS: BASOPHILS # (AUTO) 0.1 10^3/uL (0.0-0.1); BASOPHILS % (AUTO) 0.7 %; EOSINOPHILS # (AUTO) 0.1 10^3/uL (0.0-0.7); EOSINOPHILS % (AUTO) 1.8 %; HGB - HEMOGLOBIN 11.9 g/dL (12.0-16.0); LYMPHOCYTES # (AUTO) 2.4 10^3/uL (1.5-3.5); LYMPHOCYTES % (AUTO) 31.5 %; MEAN CORPUSCULAR HEMOGLOBIN 25.7 pg (27.0-31.0); MEAN CORPUSCULAR HGB CONC 32.8 g/dL (32.0-36.0); MEAN CORPUSCULAR VOLUME 78.4 fL (81.0-99.0); MEAN PLATELET VOLUME 7.2 fL (7.9-10.8); MONOCYTES # (AUTO) 0.5 10^3/uL (0.0-1.0); MONOCYTES % (AUTO) 6.3 %; NEUTROPHILS # (AUTO) 4.5 10^3/uL (1.5-6.6); NEUTROPHILS % (AUTO) 59.7 %; PLT - PLATELET COUNT 278 10^3/uL (130-450); RED BLOOD COUNT 4.65 10^6/uL (4.20-5.40); RED CELL DISTRIBUTION WIDTH 18.4 % (12.0-15.0); WHITE BLOOD COUNT 7.6 x10^3/uL (4.8-10.8)
== END 2018-05-18 09:19 | disposition home or self-care (01) ==
LOC: LAB 09:18
PROVIDERS: ATTEND Nurse Practitioner Psychiatric/Mental Health
DX: F33.1 Major depressive disorder, recurrent, moderate (principal)
CPT/HCPCS: 36415; 85025

== ENCOUNTER 2018-08-02 22:29 | Emergency (ER) | payer MEDICARE, MEDICAID ==
[2018-08-02] MEDS ORDERED: IPRATROPIUM/ALBUTEROL 3 ML NEB INH STA (22:42)
[2018-08-02] MEDS ORDERED: predniSONE 20 MG TABLET PO STA (22:42)
--- NOTE | 2018-08-02 22:46 | ED Physician Documentation ---
PD HPI URI - Stated complaint Stated Complaint: SOA - Chief complaint Chief Complaint: Resp - History obtained from History obtained from: Family - History of Present Illness Timing - onset: How many weeks ago (2) Timing details: Gradual onset, Still present, Intermittant Pain level max: 5 Pain level now: 0 Associated symptoms: Chills, Nasal congestion, Rhinorrhea, Dry cough, Chest pain (With coughing), Dyspnea (With coughing). No: Fever, Sweats, Sinus pain, Sore throat, Swollen nodes, Productive cough, NVD, Bilateral edema Contributing factors: Other (Smoker and vaping). No: Sick contact, Travel, COPD / asthma Improves by: Nothing Worsened by: Other (coughing) Similar symptoms before: Treatment (Saw primary doctor3 days ago and was sent home with inhaler albuterol and Symbicort) Recently seen: Clinic - Additional information Additional information: 48-year-old female with no past medical or surgical history here with complaint of coughing the past 2 weeks which had gotten worse since Monday or 3 days ago. States with coughing it makes her short of breath and have chest discomfort. Patient was seen by her primary doctor last Monday and was prescribed inhaler albuterol and Symbicort. Patient states she smokes half a pack a day and vapes 3 times a day. Denies any trauma, travel or sick contact. States is active and denies any immobility. Review of Systems Ten Systems: 10 systems reviewed and negative Constitutional: reports: Myalgias. 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 : None HEENT: None Psych: Bipolar disorder, Schizophrenia, Post traumatic stress disorder Musculoskeletal: Chronic back pain Derm: None - Past Surgical History Past Surgical History: Yes General: Appendectomy 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: 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 LAYER: 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 - Present Medications Home Medications: Ambulatory Orders Medication Instructions Recorded Confirmed Prazosin [Minipress] 2 mg ORAL QPM 09/09/15 08/02/18 QUEtiapine [SEROquel] 50 mg ORAL QPM 09/09/15 08/02/18 Ziprasidone HCl 80 mg ORAL QPM 09/09/15 08/02/18 Albuterol Sulfate [Proair Hfa 8.5 gm IH QID #1 hfa.aer.ad 09/20/15 08/02/18 Inhaler] Lorazepam [Ativan] 1 mg PO TID PRN #10 tablet 06/16/16 08/02/18 Trazodone HCl 400 mg PO DAILY PM 09/13/17 08/02/18 traMADol [Ultram] 50 - 100 mg PO Q6H PRN #20 tablet 09/13/17 08/02/18 Tramadol HCl 50 mg PO Q6H PRN #20 tablet 01/15/18 08/02/18 Acetaminophen/Cod 300/30 [Tylenol 1 each PO Q6H PRN #10 tablet 08/03/18 #3] predniSONE [Prednisone] 20 mg PO BID #8 tablet 08/03/18 predniSONE [Prednisone] 40 mg PO DAILY #10 tablet 08/03/18 predniSONE [Prednisone] 40 mg PO DAILY #8 tablet 08/03/18 - Allergies Allergies/Adverse Reactions: Allergies Allergy/AdvReac Type Severity Reaction Status Date / Time amoxicillin [Amoxicillin] Allergy Intermediate Emesis Verified 08/02/18 22:41 NSAIDS (Non-Steroidal Allergy Unknown Verified 08/02/18 22:41 Anti-Inflamma naproxen [From Naprosyn] AdvReac Intermediate Hives Verified 08/02/18 22:41 hydrocodone bitartrate * AdvReac Emesis Verified 08/02/18 22:41 [From Vicodin] - Social History Does the pt smoke?: Yes Smoking Status: Current every day smoker Does the pt drink ETOH?: No Does the pt have substance abuse?: No - Immunizations Immunizations are current?: Yes - POLST Patient has POLST: No PD ED PE NORMAL - Vitals Vital signs reviewed: Yes - General General: Alert and oriented X 3, No acute distress, Well developed/nourished - HEENT HEENT: Moist mucous membranes, Pharynx benign - Neck Neck: Supple, no meningeal sign, No adenopathy - Cardiac Cardiac: RRR, No murmur - Respiratory Respiratory: No respiratory distress, Other (Few expiratory wheezing. Positive Diffuse rhonchi with dry coughing.) - Abdomen Abdomen: Normal bowel sounds, Soft, Non tender, Non distended - Back Back: No CVA TTP - Derm Derm: Normal color, Warm and dry - Extremities Extremities: No deformity, No edema - Neuro Neuro: Alert and oriented X 3 - Psych Psych: Normal mood, Normal affect Results - Vitals Vitals: Vital Signs - 24 hr 08/02/18 08/02/18 22:33 22:54 Temperature 36.4 C L Heart Rate 117 H 82 Respiratory 20 20 Rate Blood Pressure 156/102 H O2 Saturation 99 Oxygen O2 Source Room air - EKG (time done) 2247 Rate: Rate (enter#) Rhythm: Sinus tachycardia [place]: Normal Intervals: Normal PA QRS: Normal Ischemia: Normal ST segments - Labs Labs: Laboratory Tests 08/02/18 23:00 Influenza A (Rapid) Negative Influenza B (Rapid) Negative PD MEDICAL DECISION MAKING - ED course Complexity details: reviewed results, re-evaluated patient, considered differential (Bronchitis, pneumonia, COPD, PE, ACS. (Heart score 0 Wells score 0)), d/w patient, d/w family, other (0013 Two discharge prescriptions of prednisone were discarded physically but unable to discontinue digitally. So patient was sent home on prednisone 20 mg twice daily and given or dispense 8 tablets. Pt's nurse informed.) ED course: 2344 states feeling better after 1 DuoNeb. Lungs much improved in terms of breath sounds irrigation and no wheezing nor rhonchi. Patient still has a dry cough. Will discharge on prednisone and Tylenol 3. Instructed on how to take her albuterol inhaler(Every 4 hours as needed for cough and wheezing) Departure - Departure Disposition: 01 Home, Self Care Clinical Impression: Bronchitis, acute, with bronchospasm Condition: Stable Instructions: ED Bronchitis Asthmatic Prescriptions: Acetaminophen/Cod 300/30 [Tylenol #3] 1 each PO Q6H PRN #10 tablet PRN Reason: pain, cough predniSONE [Prednisone] 40 mg PO DAILY #10 tablet predniSONE [Prednisone] 40 mg PO DAILY #8 tablet predniSONE [Prednisone] 20 mg PO BID #8 tablet
--- NOTE | 2018-08-02 23:24 | XRAY Report ---
Reason: cough Procedure Date: 08/02/2018 Accession Number: [id number] / [id number] Procedure: XR - Chest 2 View X-Ray CPT Code: 37455 FULL RESULT: EXAM: CHEST RADIOGRAPHY EXAM DATE: 08/02/2018 11:06 PM. CLINICAL HISTORY: Cough. COMPARISON: CHEST 2 VIEW PA/LAT 09/20/2015 1:31 PM. TECHNIQUE: 2 views. FINDINGS: Lungs/Pleura: No focal opacities evident. No pleural effusion. No pneumothorax. Normal volumes. Mediastinum: Heart and mediastinal contours are unremarkable. Other: Stable thoracic spinal stimulator lead. IMPRESSION: No evidence of acute cardiopulmonary disease. No significant change. RADIA
[2018-08-02] MEDS ORDERED: ACETAMINOPHEN/CODEINE 300 MG/30 MG TABLET PO STA (23:54)
[2018-08-03 00:16] VITALS: BP 149/100
== END 2018-08-03 00:17 | disposition home or self-care (01) ==
LOC: ED 22:29
DX: J20.9 Acute bronchitis, unspecified (principal); F17.200 Nicotine dependence, unspecified, uncomplicated
CPT/HCPCS: 71046; 87275; 87276; 93005; 94640; 99283; A9270; J7512

== ENCOUNTER 2018-09-15 19:47 | Emergency (ER) | payer MEDICARE, MEDICAID ==
--- NOTE | 2018-09-15 20:37 | ED Physician Documentation ---
PD HPI URI - Stated complaint Stated Complaint: SORE THROAT/CHILLS - Chief complaint Chief Complaint: Heent - History obtained from History obtained from: Patient - History of Present Illness Timing - onset: Other (She is been having on and off respiratory problems for the last few months and has been on several rounds of steroids. For the last 2 days she has had sore throat, body aches, nonproductive cough. She denies sick contacts or recent travel.) Review of Systems Ten Systems: 10 systems reviewed and negative Constitutional: reports: Chills, Fatigue. 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 - Present Medications Home Medications: Ambulatory Orders Medication Instructions Recorded Confirmed Prazosin [Minipress] 2 mg ORAL QPM 09/09/15 08/02/18 QUEtiapine [SEROquel] 50 mg ORAL QPM 09/09/15 08/02/18 Ziprasidone HCl 80 mg ORAL QPM 09/09/15 08/02/18 Albuterol Sulfate [Proair Hfa 8.5 gm IH QID #1 hfa.aer.ad 09/20/15 08/02/18 Inhaler] Lorazepam [Ativan] 1 mg PO TID PRN #10 tablet 06/16/16 08/02/18 Trazodone HCl 400 mg PO DAILY PM 09/13/17 08/02/18 traMADol [Ultram] 50 - 100 mg PO Q6H PRN #20 tablet 09/13/17 08/02/18 Tramadol HCl 50 mg PO Q6H PRN #20 tablet 01/15/18 08/02/18 Acetaminophen/Cod 300/30 [Tylenol 1 each PO Q6H PRN #10 tablet 08/03/18 #3] predniSONE [Prednisone] 20 mg PO BID #8 tablet 08/03/18 predniSONE [Prednisone] 40 mg PO DAILY #10 tablet 08/03/18 predniSONE [Prednisone] 40 mg PO DAILY #8 tablet 08/03/18 Guaifenesin/Pseudoephedrne HCl 1 each PO BID PRN #20 tab.er.12h 09/15/18 [Mucinex D ER 600-60 mg Tablet] - Allergies Allergies/Adverse Reactions: Allergies Allergy/AdvReac Type Severity Reaction Status Date / Time amoxicillin [Amoxicillin] Allergy Intermediate Emesis Verified 09/15/18 19:59 NSAIDS (Non-Steroidal Allergy Unknown Verified 09/15/18 19:59 Anti-Inflamma naproxen [From Naprosyn] AdvReac Intermediate Hives Verified 09/15/18 19:59 hydrocodone bitartrate * AdvReac Emesis Verified 09/15/18 19:59 [From Vicodin] - Social History Does the pt smoke?: Yes Smoking Status: Current every day smoker Does the pt drink ETOH?: No Does the pt have substance abuse?: No - Immunizations Immunizations are current?: Yes - POLST Patient has POLST: No PD ED PE NORMAL - Vitals Vital signs reviewed: Yes - General General: Alert and oriented X 3, No acute distress - HEENT HEENT: PERRL, EOMI, Ears normal, Pharynx benign - Neck Neck: Supple, no meningeal sign, No adenopathy - Cardiac Cardiac: RRR, No murmur - Respiratory Respiratory: No respiratory distress, Clear bilaterally - Abdomen Abdomen: Non tender - Derm Derm: No rash - Neuro Neuro: Alert and oriented X 3, Normal speech Results - Vitals Vitals: Vital Signs - 24 hr 09/15/18 19:56 Temperature 36.6 C Heart Rate 92 Respiratory 18 Rate Blood Pressure 127/78 O2 Saturation 97 Oxygen O2 Source Room air - Labs Labs: Laboratory Tests 09/15/18 09/15/18 20:37 20:37 Influenza A (Rapid) Negative Influenza B (Rapid) Negative Group A Strep Rapid Negative - Rads (name of study) 2v chest Radiology: EMP read contemporaneously (normal) Departure - Departure Disposition: 01 Home, Self Care Clinical Impression: Upper respiratory tract infection Qualifiers: URI type: unspecified viral URI Qualified Code(s): J06.9 - Acute upper respiratory infection, unspecified Condition: Good Record reviewed to determine appropriate education?: Yes Instructions: ED URI Viral Prescriptions: Guaifenesin/Pseudoephedrne HCl [Mucinex D ER 600-60 mg Tablet] 1 each PO BID PRN #20 tab.er.12h PRN Reason: congestion Comments: Call your doctor to arrange a follow-up appointment, make the next available appointment. In the interim, return anytime if worse or if new symptoms develop.
--- NOTE | 2018-09-15 21:05 | XRAY Report ---
Reason: cough Procedure Date: 09/15/2018 Accession Number: [id number] / [id number] Procedure: XR - Chest 2 View X-Ray CPT Code: 38255 FULL RESULT: EXAM: CHEST RADIOGRAPHY EXAM DATE: 09/15/2018 08:43 PM. CLINICAL HISTORY: Cough. COMPARISON: CHEST 2 VIEW 08/02/2018 11:06 PM. TECHNIQUE: 2 views. FINDINGS: Heart size is normal. Small calcified plaques in the aortic arch. Lung volumes are low. No consolidation, pleural effusion, or pneumothorax. Intrathecal stimulator is unchanged. IMPRESSION: No acute cardiopulmonary findings. RADIA
[2018-09-15 21:57] VITALS: BP 126/72
== END 2018-09-15 21:33 | disposition home or self-care (01) ==
LOC: ED 19:47
DX: J06.9 Acute upper respiratory infection, unspecified (principal); F17.200 Nicotine dependence, unspecified, uncomplicated
CPT/HCPCS: 71046; 87070; 87275; 87276; 87430; 99283

== ENCOUNTER 2018-11-29 08:00 | Outpatient (CLI) | payer MEDICARE, MEDICAID ==
[2018-11-29 13:22] LABS: ALBUMIN 4.1 g/dL (3.2-5.5); ALBUMIN/GLOBULIN RATIO 1.1 (1.0-2.2); ALKALINE PHOSPHATASE 67 IU/L (42-121); ALT ALANINE AMINOTRANSFERASE 16 IU/L (10-60); AST ASPARTATE AMINOTRANSFERASE 18 IU/L (10-42); BILIRUBIN,TOTAL 0.4 mg/dL (0.2-1.0); BUN - BLOOD UREA NITROGEN 11 mg/dL (6-20); CALCIUM 9.2 mg/dL (8.5-10.3); CARBON DIOXIDE - CO2 23 mmol/L (21-32); CHLORIDE 106 mmol/L (101-111); CHOL/HDL RATIO 7.7 (<4.4); CHOLESTEROL 245 mg/dL; GFR - MDRD 59 (>89); GLUCOSE 153 mg/dL (70-100); HDL CHOLESTEROL 32 mg/dL; LDL CHOLESTEROL,CALCULATED 154 mg/dL; LDL/HDL RATIO 4.8 (<4.4); SODIUM 137 mmol/L (135-145); TOTAL PROTEIN 7.7 g/dL (6.7-8.2); VLDL CHOLESTEROL 59 mg/dL
[2018-11-29 13:36] LABS: HB2 TOTAL 12.2 g/dL; HEMOGLOBIN A1C 0.54 g/dL; HEMOGLOBIN A1C % 6.2 % (4.6-6.2)
[2018-11-29 15:00] LABS: FREE T4 (FREE THYROXINE) 0.65 ng/dL (0.58-1.64)
== END 2018-11-29 23:59 | disposition home or self-care (01) ==
LOC: LAB.WCP 08:00
PROVIDERS: ATTEND Family Medicine
DX: Z00.00 Encounter for general adult medical examination without abnormal findings (principal); R73.01 Impaired fasting glucose; R03.0 Elevated blood-pressure reading, without diagnosis of hypertension
CPT/HCPCS: 36415; 80053; 80061; 83036; 83721; 84439; 84443

== ENCOUNTER 2018-12-06 19:32 | Emergency (ER) | payer MEDICARE, MEDICAID ==
[2018-12-06] MEDS ORDERED: CYCLOBENZAPRINE 10 MG TABLET PO STA (21:07)
--- NOTE | 2018-12-06 21:10 | ED Physician Documentation ---
PD HPI HEAD INJURY - Stated complaint Stated Complaint: FALL WHILE RUNNING - Chief complaint Chief Complaint: Trauma Hd/Nk - History obtained from History obtained from: Patient - History of Present Illness Mechanism of head injury: Fell (She was running for the bus and tripped and fell face forward hitting her nose and forehead on the concrete. This happened about 2 hours ago. She did not lose consciousness and does not have a headache. 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 : None HEENT: None Psych: Bipolar disorder, Schizophrenia, Post traumatic stress disorder Musculoskeletal: Chronic back pain Derm: None - Past Surgical History Past Surgical History: Yes General: Appendectomy Ortho: 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: 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 - Present Medications Home Medications: Ambulatory Orders Medication Instructions Recorded Confirmed Prazosin [Minipress] 2 mg ORAL QPM 09/09/15 08/02/18 QUEtiapine [SEROquel] 50 mg ORAL QPM 09/09/15 08/02/18 Ziprasidone HCl 80 mg ORAL QPM 09/09/15 08/02/18 Albuterol Sulfate [Proair Hfa 8.5 gm IH QID #1 hfa.aer.ad 09/20/15 08/02/18 Inhaler] Lorazepam [Ativan] 1 mg PO TID PRN #10 tablet 06/16/16 08/02/18 Trazodone HCl 400 mg PO DAILY PM 09/13/17 08/02/18 traMADol [Ultram] 50 - 100 mg PO Q6H PRN #20 tablet 09/13/17 08/02/18 Tramadol HCl 50 mg PO Q6H PRN #20 tablet 01/15/18 08/02/18 Acetaminophen/Cod 300/30 [Tylenol 1 each PO Q6H PRN #10 tablet 08/03/18 #3] predniSONE [Prednisone] 20 mg PO BID #8 tablet 08/03/18 predniSONE [Prednisone] 40 mg PO DAILY #10 tablet 08/03/18 predniSONE [Prednisone] 40 mg PO DAILY #8 tablet 08/03/18 Guaifenesin/Pseudoephedrne HCl 1 each PO BID PRN #20 tab.er.12h 09/15/18 [Mucinex D ER 600-60 mg Tablet] Cyclobenzaprine [Flexeril] 10 mg PO TID PRN #10 tablet 12/06/18 Doxycycline Hyclate 100 mg PO BID #14 capsule 12/06/18 - Allergies Allergies/Adverse Reactions: Allergies Allergy/AdvReac Type Severity Reaction Status Date / Time amoxicillin [Amoxicillin] Allergy Intermediate Emesis Verified 12/06/18 19:44 aspartame Allergy Unknown Verified 12/06/18 19:44 chocolate flavor Allergy Unknown Verified 12/06/18 19:44 NSAIDS (Non-Steroidal Allergy Unknown Verified 12/06/18 19:44 Anti-Inflamma Penicillins Allergy Unknown Verified 12/06/18 19:44 wheat Allergy Unknown Verified 12/06/18 19:44 naproxen [From Naprosyn] AdvReac Intermediate Hives Verified 12/06/18 19:44 hydrocodone bitartrate * AdvReac Emesis Verified 12/06/18 19:44 [From Vicodin] lactase [From Dairy Aid] AdvReac Unknown Verified 12/06/18 19:44 - Social History Does the pt smoke?: Yes Smoking Status: Current every day smoker Does the pt drink ETOH?: No Does the pt have substance abuse?: No - Immunizations Immunizations are current?: Yes - POLST Patient has POLST: No PD ED PE NORMAL - Vitals Vital signs reviewed: Yes - General General: Alert and oriented X 3, No acute distress - HEENT HEENT: PERRL, EOMI, Other (She is tender over the bridge of the nose but there is no deformity, swelling or epistaxis.) - Neck Neck: Other (Mild low C-spine tenderness) - Extremities Extremities: Other (She is an abrasion on the palm the left hand that is shallow without retained foreign body. No limited range of motion or tenderness. There is also a very shallow abrasion over the left anterior knee again without effusion, tenderness, or limited range of motion) - Neuro Neuro: Alert and oriented X 3, Normal speech - Psych Psych: Normal mood, Normal affect Results - Vitals Vitals: Vital Signs - 24 hr 12/06/18 19:40 Temperature 36.0 C L Heart Rate 91 Respiratory 16 Rate Blood Pressure 114/89 H O2 Saturation 97 Oxygen O2 Source Room air - Rads (name of study) CT of the face and cervical spine Radiology: EMP read contemporaneously (Nonspecific likely infectious groundglass opacities at the apices without bony abnormality.) PD MEDICAL DECISION MAKING - ED course ED course: This is a 48-year-old woman who had a ground-level fall today injuring her nose. She has mild tenderness and relevant imaging was negative but did show groundglass opacities of the lung apices and she does have a productive cough with which we will treat with Zithromax and subsequent chest x-ray to confirm clearance was advised. Departure - Departure Disposition: 01 Home, Self Care Clinical Impression: Pneumonitis, Fall from ground level Facial contusion Qualifiers: Encounter type: initial encounter Qualified Code(s): S00.83XA - Contusion of other part of head, initial encounter Neck strain Qualifiers: Encounter type: initial encounter Qualified Code(s): S16.1XXA - Strain of muscle, fascia and tendon at neck level, initial encounter Condition: Stable Record reviewed to determine appropriate education?: Yes Instructions: ED Sprain Strain Neck Prescriptions: Cyclobenzaprine [Flexeril] 10 mg PO TID PRN #10 tablet PRN Reason: Spasms Doxycycline Hyclate 100 mg PO BID #14 capsule Comments: Recheck with your doctor later this week, as discussed your doctor will likely want to perform a repeat chest x-ray in 4-6 weeks to demonstrate clearing of the apical groundglass opacities. Return for new or worsening symptoms.
--- NOTE | 2018-12-06 22:30 | CT Report ---
Reason: facial inj, cspine TTP Procedure Date: 12/06/2018 Accession Number: [id number] / [id number] Procedure: CT - CERVICAL SPINE WO CPT Code: FULL RESULT: EXAM: CT CERVICAL SPINE WITHOUT CONTRAST DATE: 12/06/2018 09:46 PM. HISTORY: C-spine tenderness after trauma. COMPARISONS: CHEST ANGIO 12/19/2013 3:48 PM. TECHNIQUE: Thin-section axial images were acquired of the cervical spine without contrast. Post-processing: Coronal and sagittal reformats. Other: None. In accordance with CT protocol optimization, one or more of the following dose reduction techniques were utilized for this exam: automated exposure control, adjustment of mA and/or KV based on patient size, or use of iterative reconstructive technique. FINDINGS: Alignment: No scoliosis or spondylolisthesis. Bones: No fracture or bone lesion. Interspace Levels/Facets: C1-C2: Unremarkable. C2-C3: Unremarkable. C3-C4: Unremarkable. C4-C5: Unremarkable. C5-C6: Mild disk space narrowing. No significant central or foraminal stenosis. C6-C7: Moderate disk space narrowing. No significant central or foraminal stenosis. C7-T1: Unremarkable. Musculature: Normal. No fatty atrophy. Other: The paravertebral and prevertebral soft tissues are unremarkable. Groundglass opacities are present within the lung apices, not evident on prior imaging. IMPRESSION: No fracture identified in the cervical spine. Groundglass opacities at both lung apices, not evident on prior imaging. This is nonspecific, potentially infectious. RADIA
--- NOTE | 2018-12-06 22:35 | CT Report ---
Reason: facial inj, cspine TTP Procedure Date: 12/06/2018 Accession Number: [id number] / [id number] Procedure: CT - MAXILLOFACIAL WO CPT Code: FULL RESULT: EXAM: CT MAXILLOFACIAL WITHOUT CONTRAST EXAM DATE: 12/06/2018 09:50 PM. CLINICAL HISTORY: Facial trauma. COMPARISONS: HEAD 06/12/2008 3:37 PM BRAIN 07/21/2008 9:04 AM. TECHNIQUE: Thin-section axial images were acquired of the face without contrast. Post-processing: Coronal and sagittal reformats. Other: None. In accordance with CT protocol optimization, one or more of the following dose reduction techniques were utilized for this exam: automated exposure control, adjustment of mA and/or KV based on patient size, or use of iterative reconstructive technique. FINDINGS: Soft Tissue: The infratemporal fossa and parapharyngeal spaces are unremarkable. Orbits: Symmetric and unremarkable. Bones: No fracture or bone lesion. Temporomandibular Joints: The temporomandibular joints are symmetric and normally located. Sinuses: Small left ethmoid osteoma. Mild thickening within the maxillary antra bilaterally. Otherwise, unremarkable. Other: Retropharyngeal carotid bifurcations. Encephalomalacia right temporal pole, unchanged. IMPRESSION: No facial bone fracture identified. RADIA
[2018-12-06] MEDS ORDERED: CYCLOBENZAPRINE 10 MG Prepack 2 PO STA (22:43)
[2018-12-06] MEDS ORDERED: DOXYCYCLINE 100 MG TABLET PO STA (22:43)
[2018-12-06 22:57] VITALS: BP 114/88
== END 2018-12-06 22:55 | disposition home or self-care (01) ==
LOC: ED 19:32
DX: S00.83XA Contusion of other part of head, initial encounter (principal); S16.1XXA Strain of muscle, fascia and tendon at neck level, initial encounter; S60.512A Abrasion of left hand, initial encounter; S80.212A Abrasion, left knee, initial encounter; W01.198A Fall on same level from slipping, tripping and stumbling with subsequent striking against other object, initial encounter; Y93.02 Activity, running; J18.9 Pneumonia, unspecified organism; F17.200 Nicotine dependence, unspecified, uncomplicated
CPT/HCPCS: 70486; 72125; 99283; A9270

== ENCOUNTER 2018-12-18 08:47 | Outpatient (CLI) | payer MEDICARE, MEDICAID ==
--- NOTE | 2018-12-18 11:35 | XRAY Report ---
Reason: PNEUMONITIS Procedure Date: 12/18/2018 Accession Number: [id number] / [id number] Procedure: WCP - Chest 2 View X-Ray CPT Code: 37741 FULL RESULT: EXAM: CHEST RADIOGRAPHY EXAM DATE: 12/18/2018 09:11 AM. CLINICAL HISTORY: Pneumonitis. COMPARISON: CHEST 2 VIEW 09/15/2018 8:37 PM. TECHNIQUE: 2 views. FINDINGS: Lungs/Pleura: No focal opacities evident. No pleural effusion. No pneumothorax. Normal volumes. Mediastinum: Stable cardiomediastinal contour without cardiomegaly. Other: Spinal cord stimulator is noted. IMPRESSION: No acute airspace disease is detected. RADIA
== END 2018-12-18 08:48 | disposition home or self-care (01) ==
LOC: DI.WCP 08:47
PROVIDERS: ATTEND Family Medicine
DX: J18.9 Pneumonia, unspecified organism (principal)
CPT/HCPCS: 71046

== ENCOUNTER 2018-12-31 17:14 | Outpatient (CLI) | payer MEDICARE, MEDICAID ==
[2018-12-31] MEDS ORDERED: IOVERSOL 320 50 ML VIAL ONE (17:32)
[2018-12-31] MEDS ORDERED: IOVERSOL 320 100 ML VIAL IVP ONE ×2 (17:32→18:47)
[2018-12-31 17:41] LABS: BASOPHILS # (AUTO) 0.1 10^3/uL (0.0-0.1); BASOPHILS % (AUTO) 0.8 %; EOSINOPHILS # (AUTO) 0.2 10^3/uL (0.0-0.7); EOSINOPHILS % (AUTO) 1.5 %; HGB - HEMOGLOBIN 10.7 g/dL (12.0-16.0); LYMPHOCYTES # (AUTO) 2.7 10^3/uL (1.5-3.5); LYMPHOCYTES % (AUTO) 26.5 %; MEAN CORPUSCULAR HEMOGLOBIN 21.7 pg (27.0-31.0); MEAN CORPUSCULAR HGB CONC 30.5 g/dL (32.0-36.0); MEAN PLATELET VOLUME 6.9 fL (7.9-10.8); MONOCYTES # (AUTO) 0.6 10^3/uL (0.0-1.0); MONOCYTES % (AUTO) 5.8 %; NEUTROPHILS # (AUTO) 6.7 10^3/uL (1.5-6.6); NEUTROPHILS % (AUTO) 65.4 %; PLT - PLATELET COUNT 478 10^3/uL (130-450); RED BLOOD COUNT 4.95 10^6/uL (4.20-5.40); RED CELL DISTRIBUTION WIDTH 19.6 % (12.0-15.0); WHITE BLOOD COUNT 10.3 x10^3/uL (4.8-10.8)
[2018-12-31 17:56] LABS: ALBUMIN 3.9 g/dL (3.2-5.5); BILIRUBIN,TOTAL 0.4 mg/dL (0.2-1.0); CALCIUM 9.5 mg/dL (8.5-10.3); CREATININE 0.9 mg/dL (0.4-1.0); TOTAL PROTEIN 7.7 g/dL (6.7-8.2)
[2018-12-31] MEDS ORDERED: IOVERSOL 320 50 ML VIAL PO ONE (18:47)
--- NOTE | 2018-12-31 18:56 | CT Report ---
Reason: ABDOMINAL PAIN,ACUTE Procedure Date: 12/31/2018 Accession Number: [id number] / [id number] Procedure: CT - Abdomen/Pelvis W CPT Code: FULL RESULT: EXAM: CT ABDOMEN AND PELVIS EXAM DATE: 12/31/2018 06:31 PM. CLINICAL HISTORY: ABDOMINAL PAIN,ACUTE. COMPARISONS: ABDOMEN/PELVIS W/ 09/13/2017 7:32 PM. TECHNIQUE: Routine helical CT imaging was performed through the abdomen and pelvis. IV contrast: OPTI 320 100mL. Enteric contrast: No. Reconstructions: Coronal and sagittal. In accordance with CT protocol optimization, one or more of the following dose reduction techniques were utilized for this exam: automated exposure control, adjustment of mA and/or KV based on patient size, or use of iterative reconstructive technique. FINDINGS: Lung Bases: Unremarkable. Liver: Normal. No masses. Gallbladder/Bile Ducts: Unremarkable. Spleen: Normal. Pancreas: Normal. Adrenal Glands: Normal. Kidneys: Normal. No masses or hydronephrosis. Peritoneal Cavity/Bowel: Normal. No free fluid, free air or adenopathy. No masses or acute inflammatory process. No evidence of appendicitis. Pelvic Organs: The uterus has been removed. No pelvic mass, lymphadenopathy or fluid collections. The urinary bladder is unremarkable. Vasculature: No aneurysms or other significant abnormality. Bones: No significant abnormality. Other: None. IMPRESSION: No acute process within the abdomen and pelvis. RADIA The call report notification system was initiated by Dr. Angelo Barron at 06:55 PM on 12/31/2018.
== END 2018-12-31 17:15 | disposition home or self-care (01) ==
LOC: DI 17:14
PROVIDERS: ATTEND Physician Assistant
DX: R10.9 Unspecified abdominal pain (principal)
CPT/HCPCS: 36415; 74177; 80053; 83690; 85025; Q9967

== ENCOUNTER 2019-01-02 14:51 | Outpatient (CLI) | payer MEDICARE, MEDICAID ==
[2019-01-02 21:25] LABS: % IRON SATURATION 3 % (20-50); IRON 11 ug/dL (28-170); TOTAL IRON BINDING CAPACITY 364 ug/dL (250-450); TRANSFERRIN 260 mg/dL (192-382)
== END 2019-01-02 14:52 | disposition home or self-care (01) ==
LOC: LAB.WCP 14:51
PROVIDERS: ATTEND Family Medicine
DX: D50.9 Iron deficiency anemia, unspecified (principal)
CPT/HCPCS: 36415; 82728; 83540; 84466

== ENCOUNTER 2019-01-03 10:56 | Outpatient (CLI) | payer MEDICARE, MEDICAID | END 2019-01-03 23:59 | disposition home or self-care (01) | LOC: LAB.R 10:56 | PROVIDERS: ATTEND Family Medicine | DX: R19.7 Diarrhea, unspecified (principal) | CPT/HCPCS: 81599; 83630; 87045; 87046; 87329; 87493 ==

== ENCOUNTER 2019-02-05 08:19 | Day surgery (SDC) | payer MEDICARE, MEDICAID ==
[2019-02-05] MEDS ORDERED: LACTATED RINGERS 1,000 ML IV ONE ×2 (08:57→11:26)
[2019-02-05] MEDS ORDERED: LIDO GARGLE 30 ML BOTTLE ONE (10:01)
[2019-02-05] MEDS ORDERED: MIDAZOLAM 2 MG/2 ML VIAL IVP ONE (10:42)
[2019-02-05] MEDS ORDERED: fentaNYL 250 MCG/5 ML VIAL IVP ONE (10:42)
[2019-02-05] MEDS ORDERED: LIDO GARGLE 30 ML BOTTLE PO ONE (11:05)
[2019-02-05] MEDS ORDERED: BENZOCAINE/TETRACAINE/BUTAMBEN 20 GM MM ONE (11:06)
[2019-02-05 11:58] VITALS: BP 112/59
== END 2019-02-05 08:20 | disposition home or self-care (01) ==
LOC: SDS 08:19
PROVIDERS: ATTEND Surgery
PROC: 0DB38ZX Excision of Lower Esophagus, Via Natural or Artificial Opening Endoscopic, Diagnostic (ICD-10-PCS; principal; 2019-02-05 10:30)
PROC: 0DJD8ZZ Inspection of Lower Intestinal Tract, Via Natural or Artificial Opening Endoscopic (ICD-10-PCS; 2019-02-05 10:30)
DX: D50.9 Iron deficiency anemia, unspecified (principal); R10.30 Lower abdominal pain, unspecified; K21.0 Gastro-esophageal reflux disease with esophagitis; K57.30 Diverticulosis of large intestine without perforation or abscess without bleeding; K44.9 Diaphragmatic hernia without obstruction or gangrene; K58.9 Irritable bowel syndrome, unspecified; K64.4 Residual hemorrhoidal skin tags; K64.8 Other hemorrhoids; E11.9 Type 2 diabetes mellitus without complications; F31.9 Bipolar disorder, unspecified; G43.909 Migraine, unspecified, not intractable, without status migrainosus; M79.7 Fibromyalgia; G89.29 Other chronic pain; M54.9 Dorsalgia, unspecified; G93.0 Cerebral cysts; J45.909 Unspecified asthma, uncomplicated; M62.838 Other muscle spasm; N18.2 Chronic kidney disease, stage 2 (mild); Z90.710 Acquired absence of both cervix and uterus; F17.210 Nicotine dependence, cigarettes, uncomplicated; E66.01 Morbid (severe) obesity due to excess calories; Z68.39 Body mass index [BMI] 39.0-39.9, adult; Z79.84 Long term (current) use of oral hypoglycemic drugs; Z79.51 Long term (current) use of inhaled steroids
CPT/HCPCS: 43239; 45378; A9270; J3010; J7120

== ENCOUNTER 2019-03-04 13:31 | Outpatient (CLI) | payer MEDICARE, MEDICAID | END 2019-03-04 13:32 | disposition home or self-care (01) | LOC: SC 13:31 | PROVIDERS: ATTEND Internal Medicine Pulmonary Disease | DX: G47.10 Hypersomnia, unspecified (principal); G47.8 Other sleep disorders; R06.83 Snoring; E66.9 Obesity, unspecified; Z68.38 Body mass index [BMI] 38.0-38.9, adult | CPT/HCPCS: 99203; G0463; 99212 ==

== ENCOUNTER 2019-03-26 20:38 | Outpatient (CLI) | payer MEDICARE, MEDICAID | END 2019-03-26 20:39 | disposition home or self-care (01) | LOC: SC 20:38 | PROVIDERS: ATTEND Internal Medicine Pulmonary Disease | DX: G47.33 Obstructive sleep apnea (adult) (pediatric) (principal); R09.02 Hypoxemia; E66.9 Obesity, unspecified; Z68.38 Body mass index [BMI] 38.0-38.9, adult | CPT/HCPCS: 95810 ==

== ENCOUNTER 2019-04-15 13:16 | Emergency (ER) | payer MEDICARE, MEDICAID ==
--- NOTE | 2019-04-15 13:28 | ED Physician Documentation ---
History of Present Illness - Stated complaint Stated Complaint: LEG PX - Chief complaint Chief Complaint: Ext Problem - Additonal information Additional information: This is a 48-year-old female with a history of bipolar schizophrenia, and right knee pain which is chronic, who presents with right leg swelling and pain patient begin physical therapy in the last week, she has had increasing pain in her leg since that time. She notes that her leg from the calf down has become swollen, she has pain that began in the back of her knee but is now extending down to her calf and up in her thigh as well. She denies any fever, there are no lesions rashes or lacerations to her leg. She has never had a blood clot. No recent surgeries or travel. No chest pain or shortness of breath. She has some pain in her ankle as well, but she denies any trauma to her leg falls or twisting events. 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 HEENT: Chronic vision loss Psych: Depression, Anxiety, Bipolar disorder, Schizophrenia, Panic attacks, Claustrophobia Musculoskeletal: Chronic back pain Derm: None - Past Surgical History Past Surgical History: Yes General: Appendectomy Ortho: Spine surgery, 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, 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 - Present Medications Home Medications: Ambulatory Orders Medication Instructions Recorded Confirmed QUEtiapine [SEROquel] 450 mg ORAL QPM 09/09/15 02/05/19 RX: Ziprasidone HCl 80 mg ORAL QPM 09/09/15 02/05/19 RX: Albuterol Sulfate [Proair Hfa 8.5 gm IH QID #1 hfa.aer.ad 09/20/15 02/05/19 Inhaler] RX: Trazodone HCl 400 mg PO DAILY PM 09/13/17 02/05/19 Budesonide/Formoterol Fumarate 10.2 gm IH BID 01/07/19 02/05/19 [Symbicort 160-4.5 Mcg Inhaler] Polyethylene Glycol 3350 [Miralax] 17 gm PO DAILY PRN 01/07/19 02/01/19 RX: Gabapentin 600 mg PO BID 01/07/19 02/05/19 RX: Metformin HCl 500 mg PO DAILY 01/07/19 02/05/19 RX: Topiramate 25 mg PO BID 01/07/19 02/05/19 RX: Prazosin [Minipress] 1 mg PO DAILY 02/05/19 02/05/19 RX: Sertraline HCl 100 mg PO DAILY 02/05/19 02/05/19 Cephalexin [Keflex] 500 mg PO Q6H #28 capsule 04/15/19 - Allergies Allergies/Adverse Reactions: Allergies Allergy/AdvReac Type Severity Reaction Status Date / Time amoxicillin [Amoxicillin] Allergy Intermediate Emesis Verified 04/15/19 13:23 aspartame Allergy Unknown Verified 04/15/19 13:23 chocolate flavor Allergy Unknown Verified 04/15/19 13:23 NSAIDS (Non-Steroidal Allergy Unknown Verified 04/15/19 13:23 Anti-Inflamma Penicillins Allergy Unknown Verified 04/15/19 13:23 wheat Allergy Unknown Verified 04/15/19 13:23 naproxen [From Naprosyn] AdvReac Intermediate Hives Verified 04/15/19 13:23 hydrocodone bitartrate * AdvReac Emesis Verified 04/15/19 13:23 [From Vicodin] lactase [From Dairy Aid] AdvReac Unknown Verified 04/15/19 13:23 - Social History Does the pt smoke?: Yes Smoking Status: Current every day smoker Does the pt drink ETOH?: No Does the pt have substance abuse?: No - Immunizations Immunizations are current?: Yes - POLST Patient has POLST: No PD ED PE NORMAL - Vitals Vital signs reviewed: Yes - General General: Alert and oriented X 3, No acute distress - HEENT HEENT: Atraumatic - Cardiac Cardiac: RRR, No murmur - Respiratory Respiratory: Clear bilaterally - Abdomen Abdomen: Soft, Non tender, Non distended - Extremities Extremities: Other (Right leg has some mild edema and erythema that extends from the ankle to the popliteal fossa. This is diffuse and not well defined. There is tenderness of the calf and to a lesser extent of the distal thigh. Patient is able to range her hip knee and ankle without issue. Sensation light touch intact, pulses are strong bilaterally.) - Neuro Neuro: Alert and oriented X 3 - Psych Psych: Normal mood, Normal affect Results - Vitals Vitals: Vital Signs - 24 hr 04/15/19 04/15/19 13:19 15:46 Temperature 36.7 C Heart Rate 105 H 82 Respiratory 18 18 Rate Blood Pressure 137/91 H 132/89 H O2 Saturation 94 98 Oxygen O2 Source Room air - Labs Labs: Laboratory Tests 04/15/19 04/15/19 14:00 14:00 WBC 11.8 H RBC 5.00 Hgb 11.4 L Hct 37.9 MCV 75.8 L MCH 22.8 L MCHC 30.1 L RDW 23.9 H Plt Count 301 MPV 9.7 Neut # (Auto) 7.8 H Lymph # (Auto) 2.7 [place] # (Auto) 0.9 Eos # (Auto) 0.2 Baso # (Auto) 0.1 Absolute Nucleated RBC 0.00 Nucleated RBC % 0.0 Manual Slide Review Indicated WBC Morphology NORMAL APPEARANCE Platelet Estimate NORMAL (130-450,000) Platelet Morphology NORMAL APPEARANCE RBC Morph Micro Appear 2+ POIKILOCYTOSIS Sodium 143 Potassium 4.0 Chloride 111 Carbon Dioxide 20 L Anion Gap 12.0 BUN 8 Creatinine 0.9 Estimated GFR (MDRD) 66 L Glucose 95 Calcium 9.1 - Rads (name of study) US duplex Radiology: Final report received (No DVT) PD MEDICAL DECISION MAKING - ED course Complexity details: considered differential (DVT, cellulitis, strain, sprain, ov eruse injury, fracture) ED course: On initial examination patient is mildly tachycardic but well-appearing. She does have tenderness of her calf, and she has point tenderness around her ankle. She has diffuse redness of her leg. Labs are drawn, DVT ultrasound was performed which showed no signs of DVT. X-ray of her ankle in the area of tenderness was performed which showed no acute osseous abnormality. Labs are notable for a mild leukocytosis, otherwise unremarkable. Overall I am concerned the patient may have a cellulitis given that her DVT study is negative and I do not have a better examination for her swollen red leg. I prescribed her Keflex, she states that though she has an amoxicillin allergy she is tolerated Keflex well in the past. She has a follow-up with her primary care doctor tomorrow which I reinforced that she should keep. I discussed return precautions including fever, shortness of breath, or other worsening symptoms. Patient was discharged home in the care of her daughter. Her heart rate had normalized. Departure - Departure Disposition: 01 Home, Self Care Clinical Impression: Pain in extremity Qualifiers: Extremity pain location: lower leg Laterality: right Qualified Code(s): M79.661 - Pain in right lower leg Condition: Stable Instructions: Cellulitis Dc Follow-Up: Zan Ornelas MD [Primary Care Provider] - Tomorrow Prescriptions: Cephalexin [Keflex] 500 mg PO Q6H #28 capsule Comments: You were seen today for pain and redness in your leg. I do not see signs of fracture on your x-ray. Your ultrasound does not show signs of a blood clot, but this study may need to be repeated in 1 week if you are still having symp toms. It is possible that this is a an infection of the skin/soft tissue, we will start an antibiotic and please follow up with your PCP as planned tomorrow. If you are having any chest pain, shortness of breath, fever, or other symptoms please return to the emergency department. Discharge Date/Time: 04/15/19 15:47
[2019-04-15 14:06] LABS: BASOPHILS # (AUTO) 0.1 10^3/uL (0.0-0.1); BASOPHILS % (AUTO) 0.8 %; EOSINOPHILS # (AUTO) 0.2 10^3/uL (0.0-0.7); EOSINOPHILS % (AUTO) 1.6 %; HGB - HEMOGLOBIN 11.4 g/dL (12.0-16.0); LYMPHOCYTES # (AUTO) 2.7 10^3/uL (1.5-3.5); LYMPHOCYTES % (AUTO) 22.9 %; MEAN CORPUSCULAR HEMOGLOBIN 22.8 pg (27.0-31.0); MEAN CORPUSCULAR HGB CONC 30.1 g/dL (32.0-36.0); MEAN CORPUSCULAR VOLUME 75.8 fL (81.0-99.0); MEAN PLATELET VOLUME 9.7 fL (7.9-10.8); MONOCYTES # (AUTO) 0.9 10^3/uL (0.0-1.0); MONOCYTES % (AUTO) 7.5 %; NEUTROPHILS # (AUTO) 7.8 10^3/uL (1.5-6.6); NEUTROPHILS % (AUTO) 66.6 %; PLT - PLATELET COUNT 301 10^3/uL (130-450); RED CELL DISTRIBUTION WIDTH 23.9 % (12.0-15.0); WHITE BLOOD COUNT 11.8 x10^3/uL (4.8-10.8)
--- NOTE | 2019-04-15 14:12 | XRAY Report ---
Reason: ankle pain Procedure Date: 04/15/2019 Accession Number: [id number] / [id number] Procedure: XR - Ankle 3 View RT CPT Code: FULL RESULT: EXAM: RIGHT ANKLE RADIOGRAPHY EXAM DATE: 04/15/2019 01:46 PM. CLINICAL HISTORY: Ankle pain. COMPARISON: None. TECHNIQUE: 3 views. FINDINGS: Bones: Normal. No fractures or bone lesions. Joints: Normal. No effusion. No subluxations. The ankle mortise is normally aligned. Soft Tissues: MOderate soft tissue swelling/edema is seen at right lower extremity moderate soft tissue swelling/edema in right lower extremity. IMPRESSION: No acute displaced fracture or malalignment. Moderate soft tissue swelling/edema in right lower extremity. RADIA
[2019-04-15 14:16] LABS: CALCIUM 9.1 mg/dL (8.5-10.3); CREATININE 0.9 mg/dL (0.4-1.0)
[2019-04-15 14:44] LABS: PLATELET ESTIMATE, MANUAL NORMAL (130-450,000) (NORMAL); PLATELET MORPHOLOGY NORMAL APPEARANCE (NORMAL)
--- NOTE | 2019-04-15 15:11 | Ultrasound Report ---
Reason: redness and swelling of right leg Procedure Date: 04/15/2019 Accession Number: [id number] / [id number] Procedure: US - Duplex Ext Veins Right CPT Code: FULL RESULT: EXAM: RIGHT LOWER EXTREMITY VENOUS ULTRASOUND EXAM DATE: 04/15/2019 02:23 PM. CLINICAL HISTORY: Redness and swelling of right leg. COMPARISON: None. TECHNIQUE: Real-time sonographic vascular imaging was performed by the recharger through the lower extremity utilizing both color-flow and Doppler spectral analysis. Multiple compliance representative static images were saved for review. FINDINGS: Common Femoral Vein (CFV): Normal. CFV-GSV Junction: Normal. Profunda Femoral Vein (PFV): Normal. Femoral Vein (FV) Prox: Normal. Femoral Vein (FV) Mid: Normal. Femoral Vein (FV) Dist: Normal. Popliteal Vein: Normal. Posterior Tibial Veins: Normal. Peroneal Veins: Normal. Contralateral Side CFV: Normal. Other: None. IMPRESSION: No evidence for deep venous thrombosis. RADIA
[2019-04-15 15:47] VITALS: BP 132/89
== END 2019-04-15 15:47 | disposition home or self-care (01) ==
LOC: ED 13:16
DX: M79.661 Pain in right lower leg (principal); I10 Essential (primary) hypertension; E11.9 Type 2 diabetes mellitus without complications; F17.200 Nicotine dependence, unspecified, uncomplicated; Z79.84 Long term (current) use of oral hypoglycemic drugs
CPT/HCPCS: 36415; 80048; 85025; 99284

== ENCOUNTER 2019-04-16 09:43 | Outpatient (CLI) | payer MEDICARE, MEDICAID ==
--- NOTE | 2019-04-16 12:48 | CONSULTATION NOTE ---
Information from patient questionnaire entered by Lourdes Bland. I have reviewed and concur with the information entered by Lourdes Bland. This document represents the service I personally performed and the decisions made by me, Kali Taveras MD, [facility]. - History of Present Illness HPI: Ms. Constantino returned for follow up of the sleep study she had on 04/03/2019. The polysomnography showed that the sleep architecture was normal as well. Respiratory monitoring showed mild obstructive sleep apnea-hypopnea (AHI = 5.1) associated with frequent oxyhemoglobin desaturation and moderate hypoxia (ching oxygen saturation of 76%). Baseline oxygen saturation is also low at around 84%. The respiratory events occurred mainly during supine sleep (supine AHI = 8.5; non-supine = 4.59). Snore was loud in intensity. There was mild periodic leg movement of sleep not associated with sleep fragmentation. Cardiac rhythm was normal sinus rhythm without significant arrhythmia. No abnormal behavior (parasomnia) observed during the night. The patient was informed of these findings. I explained to her the pathoph ysiology behind obstructive sleep apnea. We then spent quite a bit of time discussing different treatment options. For mild obstructive sleep apnea, surgery and oral appliance are alternatives to nasal CPAP therapy but in moderate or severe cases, nasal CPAP is the most effective and reliable treatment. After some discussion, she opted to go with the nasal CPAP therapy. I explained to her how CPAP machine works and what to expect when using the machine. She is encouraged to use CPAP every night especially in the first 2 to 3 nights in order to get used to it. She should call me or her CPAP supplier to discuss any mechanical problem that may occur. If she snores while wearing the CPAP or feels like she needs more air from the machine, she should notify me and I will increase the pressure. IMPRESSION: 1. Obstructive Sleep Apnea-Hypopnea Syndrome, mild, associated with moderate hypoxemia. Possibly, this is the cause of the patients symptoms of unrefreshed sleep, and excessive daytime sleepiness. The patient refused to return for a manual CPAP/BiPAP titration study. As mentioned above, the patient will be started on autoCPAP set at 5 - 15 cmH2O. 2. Hypoxia, most likely due to life-long cigarette smoking. If the oxygen saturation does not correct with positive airway pressure therapy, oxygen supplement may be needed, although her insurance will not pay for home oxygen until she has a manual CPAP/BiPAP titration study showing that the sleep- disordered breathing is adequately controlled. PLAN: 1. Prescription made for an autoCPAP with heated humidifier 2. Attempt to lose weight. 3. Be careful when driving until her sleepiness resolves completely on nasal CPAP therapy. 4. Return in one month for follow up. I will assess her response and compliance at that time. This visit is time-based and I spent 15 minutes with the patient, and more than 50% of the time was spent counseling the patient. Initial [place] Sleepiness Scale score: 18 - Allergies/Medications Allergies and home medications reviewed: Yes - Review of Systems Review of systems same as previous: Yes
== END 2019-04-16 09:44 | disposition home or self-care (01) ==
LOC: SC 09:43
PROVIDERS: ATTEND Internal Medicine Pulmonary Disease
DX: G47.33 Obstructive sleep apnea (adult) (pediatric) (principal); R09.02 Hypoxemia
CPT/HCPCS: 99213; G0463; 99212

== ENCOUNTER 2019-04-22 20:50 | Outpatient (CLI) | payer MEDICARE, MEDICAID | END 2019-04-22 20:51 | disposition home or self-care (01) | LOC: SC 20:50 | PROVIDERS: ATTEND Internal Medicine Pulmonary Disease | DX: G47.33 Obstructive sleep apnea (adult) (pediatric) (principal); G47.61 Periodic limb movement disorder; R09.02 Hypoxemia | CPT/HCPCS: 95811 ==

== ENCOUNTER 2019-04-29 14:17 | Outpatient (CLI) | payer MEDICARE, MEDICAID ==
--- NOTE | 2019-04-29 15:20 | SLEEP CARE CONSULTATION ---
Information from patient questionnaire entered by Lourdes Bland. I have reviewed and concur with the information entered by Lourdes Bland. This document represents the service I personally performed and the decisions made by me, Kali Taveras MD, [facility]. History of Present Illness Previous diagnosis: Mild, Obstructive Sleep Apnea-Hypopnea Syndrome AHI: 5.1 Reason for CPAP/BiPAP follow up: annual Prior sleep studies: Yes Year and Where: 2018 [facility] additional information: Ms. Constantino returns for follow up of the sleep study (a manual CPAP titration study) she had on 04/22/2019. The polysomnography showed that CPAP was initiated at 4 cmH2O and titrated up to CPAP at 10 cmH2O. CPAP at 9 cmH2O appeared to be optimal (AHI of 0.7 per hour on the pressure). There was supine REM sleep on the pressure. Oxygen saturation was low at 84% and corrected with oxygen supplement at 3 liters/minute. Lower CPAP settings appeared adequate as well. The patient tolerated positive airway pressure therapy very well. The patients sleep efficiency was normal. The sleep architecture was normal as well. There was mild periodic limb movement of sleep not associated with sleep fragmentation. Cardiac rhythm was normal sinus rhythm without significant arrhythmia. No abnormal behavior (parasomnia) observed during the night. The patient was informed of these findings. She has not yet been started on the positive airway pressure therapy. She continues to smoke cigarettes. Subjective Initial [place] Sleepiness Scale score: 18 Current [place] Sleepiness Scale score: 15 Allergies and Home Medications Home medication list reviewed: Yes Review of Systems Review of systems same as previous: Yes Impression and Plan 1. Obstructive Sleep Apnea-Hypopnea Syndrome, mild, adequately controlled with CPAP of 9 cmH2O. Based on the titration study, I will order her an autoCPAP set between 5 and 10 cmH2O. I will also order home oxygen for her to use a night through the CPAP. Hypoxemia is most likely from emphysema due to cigarette smoking. She was advised to stop smoking. PLAN: 1. Prescription made for an autoCPAP, heated humidifier, and related supplies. . 2. Prescription made for home oxygen to be bled in through the CPAP at 3 L/minute. 3. Stop smoking. 4. Return for follow up after one month on the new machine. I spent 100% of this 15 minute visit face to face with the patient with greater than 50% of this was spent time counseling the patient and coordination of care.
== END 2019-04-29 14:18 | disposition home or self-care (01) ==
LOC: SC 14:17
PROVIDERS: ATTEND Internal Medicine Pulmonary Disease
DX: G47.33 Obstructive sleep apnea (adult) (pediatric) (principal)
CPT/HCPCS: 99212; 99213

== ENCOUNTER 2019-05-15 14:02 | Outpatient (CLI) | payer MEDICARE, MEDICAID ==
--- NOTE | 2019-05-16 14:31 | XRAY Report ---
Reason: R KNEE PAIN Procedure Date: 05/15/2019 Accession Number: [id number] / [id number] Procedure: XR - Knee 4 View RT CPT Code: FULL RESULT: EXAM: RIGHT KNEE RADIOGRAPHY EXAM DATE: 05/15/2019 02:50 PM. CLINICAL HISTORY: Right knee pain. COMPARISON: None. TECHNIQUE: 4 views. FINDINGS: Bones: Normal. No fractures or bone lesions. No significant osteophytic spurring. Joints: Moderate narrowing of the medial compartment of the knee. No suprapatellar joint effusion. No chondrocalcinosis. Soft Tissues: Normal. No soft tissue swelling. IMPRESSION: Moderate degenerative narrowing of the medial compartment of the knee. RADIA
== END 2019-05-15 14:03 | disposition home or self-care (01) ==
LOC: DI 14:02
PROVIDERS: ATTEND Physician Assistant
DX: M17.11 Unilateral primary osteoarthritis, right knee (principal)

== ENCOUNTER 2019-07-25 15:19 | Outpatient (CLI) | payer MEDICARE, MEDICAID ==
--- NOTE | 2019-07-26 15:24 | XRAY Report ---
Reason: BRONCHITIS Procedure Date: 07/25/2019 Accession Number: [id number] / [id number] Procedure: WCP - Chest 2 View X-Ray CPT Code: 33461 Final Report FULL RESULT: EXAM: CHEST RADIOGRAPHY EXAM DATE: 07/25/2019 03:36 PM. CLINICAL HISTORY: BRONCHITIS. COMPARISON: CHEST 2 VIEW 12/18/2018 8:44 AM. TECHNIQUE: 2 views. FINDINGS: Lungs/Pleura: No focal opacity. No effusions. Mediastinum: Stable Other: Posterior column electrodes IMPRESSION: No acute radiographic cardiopulmonary process RADIA
== END 2019-07-25 15:20 | disposition home or self-care (01) ==
LOC: DI.WCP 15:19
PROVIDERS: ATTEND Family Medicine
DX: J20.9 Acute bronchitis, unspecified (principal)
CPT/HCPCS: 71046

== ENCOUNTER 2019-08-07 08:00 | Outpatient (CLI) | payer MEDICARE, MEDICAID ==
[2019-08-07 14:20] LABS: HB2 TOTAL 11.9 g/dL; HEMOGLOBIN A1C 0.5 g/dL
== END 2019-08-07 23:59 | disposition home or self-care (01) ==
LOC: LAB.WCP 08:00
PROVIDERS: ATTEND Family Medicine
DX: E11.9 Type 2 diabetes mellitus without complications (principal); J18.9 Pneumonia, unspecified organism; F32.9 Major depressive disorder, single episode, unspecified
CPT/HCPCS: 36415; 83036

== ENCOUNTER 2019-08-09 09:00 | Outpatient (CLI) | payer MEDICARE, MEDICAID ==
[2019-08-09 18:30] LABS: BILIRUBIN,URINE NEGATIVE (NEGATIVE); GLUCOSE, URINE (UA) NEGATIVE (NEGATIVE); KETONES,URINE (UA) NEGATIVE (NEGATIVE); LEUKOCYTE ESTERASE, URINE NEGATIVE (NEGATIVE); NITRITE,URINE NEGATIVE (NEGATIVE); OCCULT BLOOD,URINE NEGATIVE (NEGATIVE); PROTEIN,URINE NEGATIVE (NEGATIVE); UROBILINOGEN,URINE 0.2 (NORMAL) E.U./dL (NORMAL)
[2019-08-09 18:43] LABS: CLARITY,URINE CLEAR (CLEAR)
== END 2019-08-09 09:01 | disposition home or self-care (01) ==
LOC: LAB.R 09:00
PROVIDERS: ATTEND Nurse Practitioner Family
DX: R30.0 Dysuria (principal)
CPT/HCPCS: 81001; 81003; 87086

== ENCOUNTER 2019-10-04 10:52 | Outpatient (CLI) | payer MEDICARE, MEDICAID ==
--- NOTE | 2019-10-04 23:10 | XRAY Report ---
Reason: RIGHT SIDE CHEST WALL PAIN Procedure Date: 10/04/2019 Accession Number: [id number] / [id number] Procedure: WCP - Ribs w/PA Chest RT CPT Code: Final Report FULL RESULT: EXAM: RIGHT RIB RADIOGRAPHY EXAM DATE: 10/04/2019 11:06 AM. CLINICAL HISTORY: RIGHT SIDE CHEST WALL PAIN. COMPARISON: CHEST 2 VIEW 07/25/2019 3:18 PM. TECHNIQUE: 1 view of the chest and 2 views of the ribs. FINDINGS: Bones: Normal. No fracture or bone lesion. Lungs: No focal opacities. No pneumothorax. No pleural effusions. Mediastinum: Heart and mediastinal contours are unremarkable. Other: Thoracic spine neurostimulator lead. IMPRESSION: No acute cardiopulmonary disease seen. RADIA
== END 2019-10-04 23:59 | disposition home or self-care (01) ==
LOC: DI.WCP 10:52
PROVIDERS: ATTEND Family Medicine
DX: R07.89 Other chest pain (principal)

== ENCOUNTER 2019-11-02 13:56 | Emergency (ER) | payer MEDICARE, MEDICAID ==
[2019-11-02] MEDS ORDERED: CHERRY SYRUP 10 ML UDC PO ONE (17:18)
[2019-11-02] MEDS ORDERED: DEXAMETHASONE 10 MG/ML VIAL PO STA (17:18)
--- NOTE | 2019-11-02 17:24 | ED Physician Documentation ---
PD HPI BACK PAIN - Stated complaint Stated Complaint: RIGHT LEG PX - Chief complaint Chief Complaint: Back Pain - History obtained from History obtained from: Patient - History of Present Illness Timing - onset: How many days ago (3) Timing - duration: Days Timing - details: Gradual onset, Still present Location: Lower, Left Quality: Pain, Spasm, Sharp Associated symptoms: No: Fever, Weakness, Numbness, Incontinent of urine, Unable to urinate, Hematuria, Incontinent of stool Improves with: Rest, Position Worsened by: Movement, Lifting Contributing factors: Other (moving a chair) Similar symptoms before: Diagnosis (sciatica) Recently seen: Clinic - Additional information Additional information: 49-year-old female has developed some pain in her right lower back radiating right lower back radiating down her right leg. She denies any numbness or tingling to the extremity below the knee. She denies any perineal anesthesia or change in her bowel or bladder. She states that she thinks she did this by moving her chair in her home. The patient reports that her daughter has recently of a heroin overdose down to [place]. She is teary-eyed and quite emotional today. 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 : None HEENT: Chronic vision loss Psych: Depression, Anxiety, Bipolar disorder, Schizophrenia, Panic attacks, Claustrophobia Musculoskeletal: Chronic back pain Derm: None - Past Surgical History Past Surgical History: Yes General: Appendectomy Ortho: Spine surgery, Other /FERTILIZER SUPERVISOR: Tubal ligation, 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 - Present Medications Home Medications: Ambulatory Orders Medication Instructions Recorded Confirmed QUEtiapine [SEROquel] 450 mg ORAL QPM 09/09/15 02/05/19 Ziprasidone HCl 80 mg ORAL QPM 09/09/15 02/05/19 Albuterol Sulfate [Proair Hfa 8.5 gm IH QID #1 hfa.aer.ad 09/20/15 02/05/19 Inhaler] Trazodone HCl 400 mg PO DAILY PM 09/13/17 02/05/19 Budesonide/Formoterol Fumarate 10.2 gm IH BID 01/07/19 02/05/19 [Symbicort 160-4.5 Mcg Inhaler] Gabapentin 600 mg PO BID 01/07/19 02/05/19 Metformin HCl 500 mg PO DAILY 01/07/19 02/05/19 Topiramate 25 mg PO BID 01/07/19 02/05/19 polyethylene glycoL 3350 [Miralax] 17 gm PO DAILY PRN 01/07/19 02/01/19 Prazosin [Minipress] 1 mg PO DAILY 02/05/19 02/05/19 Sertraline HCl 100 mg PO DAILY 02/05/19 02/05/19 Cephalexin [Keflex] 500 mg PO Q6H #28 capsule 04/15/19 Cyclobenzaprine [Flexeril] 10 mg PO TID PRN #20 tablet 11/02/19 Oxycodone HCl/Acetaminophen 1 - 2 each PO Q6H PRN #14 tablet 11/02/19 [Percocet 5-325 mg Tablet] - Allergies Allergies/Adverse Reactions: Allergies Allergy/AdvReac Type Severity Reaction Status Date / Time amoxicillin [Amoxicillin] Allergy Intermediate Emesis Verified 04/15/19 13:23 aspartame Allergy Unknown Verified 04/15/19 13:23 chocolate flavor Allergy Unknown Verified 04/15/19 13:23 NSAIDS (Non-Steroidal Allergy Unknown Verified 04/15/19 13:23 Anti-Inflamma Penicillins Allergy Unknown Verified 04/15/19 13:23 wheat Allergy Unknown Verified 04/15/19 13:23 naproxen [From Naprosyn] AdvReac Intermediate Hives Verified 04/15/19 13:23 hydrocodone bitartrate * AdvReac Emesis Verified 04/15/19 13:23 [From Vicodin] lactase [From Dairy Aid] AdvReac Unknown Verified 04/15/19 13:23 - Social History Does the pt smoke?: Yes Smoking Status: Current every day smoker Does the pt drink ETOH?: No Does the pt have substance abuse?: No - Immunizations Immunizations are current?: Yes - POLST Patient has POLST: No PD ED PE NORMAL - Vitals Vital signs reviewed: Yes (normal ) - General General: No acute distress, Well developed/nourished - HEENT HEENT: Atraumatic, PERRL, EOMI - Respiratory Respiratory: No respiratory distress - Derm Derm: Normal color, Warm and dry - Extremities Extremities: No deformity, No edema - Neuro 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 ) Results - Vitals Vitals: Vital Signs - 24 hr 11/02/19 11/02/19 14:01 17:24 Temperature 36.8 C 36.5 C Heart Rate 82 86 Respiratory 17 20 Rate Blood Pressure 116/73 130/78 O2 Saturation 97 93 Oxygen O2 Source Room air PD MEDICAL DECISION MAKING - ED course Complexity details: reviewed old records, re-evaluated patient, considered differential, d/w patient ED course: 49-year-old female with acute sciatica on the right side is emotionally labile today as well. She is administered dexamethasone 10 mg orally and we will place her on some pain medication a muscle relaxant. Departure - Departure Disposition: 01 Home, Self Care Clinical Impression: Sciatica Qualifiers: Laterality: right Qualified Code(s): M54.31 - Sciatica, right side Condition: Stable Instructions: ED Sciatica Follow-Up: Zan Ornelas MD [Primary Care Provider] - Prescriptions: Cyclobenzaprine [Flexeril] 10 mg PO TID PRN #20 tablet PRN Reason: Spasms Oxycodone HCl/Acetaminophen [Percocet 5-325 mg Tablet] 1 - 2 each PO Q6H PRN #14 tablet PRN Reason: pain Discharge Date/Time: 11/02/19 17:36
[2019-11-02 17:25] VITALS: BP 130/78
== END 2019-11-02 17:36 | disposition home or self-care (01) ==
LOC: ED 13:56
DX: M54.31 Sciatica, right side (principal); I10 Essential (primary) hypertension; J45.909 Unspecified asthma, uncomplicated; E11.9 Type 2 diabetes mellitus without complications; K52.9 Noninfective gastroenteritis and colitis, unspecified; H54.7 Unspecified visual loss; F31.9 Bipolar disorder, unspecified; F41.0 Panic disorder [episodic paroxysmal anxiety]; F20.9 Schizophrenia, unspecified; F40.240 Claustrophobia; G89.29 Other chronic pain; F17.200 Nicotine dependence, unspecified, uncomplicated; Z79.51 Long term (current) use of inhaled steroids; Z79.84 Long term (current) use of oral hypoglycemic drugs
CPT/HCPCS: 99282; 99284; A9270

== ENCOUNTER 2019-11-18 13:33 | Outpatient (CLI) | payer MEDICARE, MEDICAID ==
--- NOTE | 2019-11-19 07:19 | Mammography Report ---
Reason: ROUTINE MAMMO Procedure Date: 11/18/2019 Accession Number: [id number] / [id number] Procedure: MGN - Screening Mammo w/Tay CPT Code: Final Report FULL RESULT: EXAM: Screening Mammo w/Tay DATE: 11/18/2019 2:04 PM CLINICAL HISTORY: Screening encounter. TECHNIQUE: (B) - Bilateral CC and MLO views were obtained. COMPARISON: 01/30/2017. PARENCHYMAL PATTERN: (A) - The breast(s) demonstrate(s) scattered fibroglandular densities. FINDINGS: There are no suspicious masses, calcifications, or areas of distortion. IMPRESSION: Negative examination. BI-RADS category 1. RECOMMENDATION: (ANNUAL) - Recommend routine annual screening mammography. BI-RADS CATEGORY: (1) - Negative. STANDARD QUALIFYING STATEMENTS: 1. This examination was not reviewed with the aid of Computer-Aided Detection (CAD). 2. A negative or benign imaging report should not preclude biopsy if clinically suspicious findings are present. 3. Dense breasts may obscure an underlying neoplasm. 4. This examination was reviewed with the aid of 3D breast imaging (tomosynthesis).
== END 2019-11-18 13:34 | disposition home or self-care (01) ==
LOC: DI.N 13:33
PROVIDERS: ATTEND Family Medicine
DX: Z12.31 Encounter for screening mammogram for malignant neoplasm of breast (principal)
CPT/HCPCS: 77063; 77067

== ENCOUNTER 2019-11-21 07:00 | Outpatient (CLI) | payer MEDICARE, MEDICAID ==
[2019-11-21 11:58] LABS: BASOPHILS # (AUTO) 0.1 10^3/uL (0.0-0.1); BASOPHILS % (AUTO) 0.7 %; EOSINOPHILS # (AUTO) 0.2 10^3/uL (0.0-0.7); EOSINOPHILS % (AUTO) 1.6 %; HGB - HEMOGLOBIN 11.6 g/dL (12.0-16.0); LYMPHOCYTES # (AUTO) 3.3 10^3/uL (1.5-3.5); LYMPHOCYTES % (AUTO) 35.4 %; MEAN CORPUSCULAR HEMOGLOBIN 22.1 pg (27.0-31.0); MEAN CORPUSCULAR HGB CONC 29.7 g/dL (32.0-36.0); MEAN CORPUSCULAR VOLUME 74.3 fL (81.0-99.0); MEAN PLATELET VOLUME 9.3 fL (7.9-10.8); MONOCYTES # (AUTO) 0.5 10^3/uL (0.0-1.0); MONOCYTES % (AUTO) 5.4 %; NEUTROPHILS # (AUTO) 5.3 10^3/uL (1.5-6.6); NEUTROPHILS % (AUTO) 56.3 %; PLT - PLATELET COUNT 343 10^3/uL (130-450); RED BLOOD COUNT 5.26 10^6/uL (4.20-5.40); RED CELL DISTRIBUTION WIDTH 18.9 % (12.0-15.0); WHITE BLOOD COUNT 9.4 x10^3/uL (4.8-10.8)
[2019-11-21 12:33] LABS: HB2 TOTAL 12.1 g/dL; HEMOGLOBIN A1C 0.54 g/dL; HEMOGLOBIN A1C % 6.2 % (4.6-6.2)
[2019-11-21 12:34] LABS: ALBUMIN/GLOBULIN RATIO 1.1 (1.0-2.2); ALKALINE PHOSPHATASE 83 IU/L (42-121); ALT ALANINE AMINOTRANSFERASE 11 IU/L (10-60); AST ASPARTATE AMINOTRANSFERASE 11 IU/L (10-42); BILIRUBIN,TOTAL 0.4 mg/dL (0.2-1.0); BUN - BLOOD UREA NITROGEN 10 mg/dL (6-20); CARBON DIOXIDE - CO2 25 mmol/L (21-32); CHLORIDE 100 mmol/L (101-111); CHOL/HDL RATIO 7.6 (<4.4); CHOLESTEROL 213 mg/dL; CREATININE 1.1 mg/dL (0.4-1.0); GFR - MDRD 52 (>89); GLUCOSE 106 mg/dL (70-100); HDL CHOLESTEROL 28 mg/dL; LDL CHOLESTEROL,CALCULATED 124 mg/dL; LDL/HDL RATIO 4.4 (<4.4); SODIUM 135 mmol/L (135-145); TOTAL PROTEIN 7.8 g/dL (6.7-8.2); VLDL CHOLESTEROL 61 mg/dL
[2019-11-21 13:16] LABS: CREATININE,URINE 123.4 mg/dL; MICROALBUMIN,URINE < 0.2 mg/dL (0-300.0)
== END 2019-11-21 23:59 | disposition home or self-care (01) ==
LOC: LAB.WCP 07:00
PROVIDERS: ATTEND Family Medicine
DX: E11.9 Type 2 diabetes mellitus without complications (principal); J45.998 Other asthma
CPT/HCPCS: 36415; 80053; 80061; 82043; 82570; 83036; 83721; 84443; 85025

== ENCOUNTER 2019-11-24 13:32 | Outpatient (CLI) | payer MEDICARE, MEDICAID | END 2019-11-24 13:33 | disposition critical access hospital (66) | LOC: EMS 13:32 | PROVIDERS: ATTEND Surgery | DX: R07.89 Other chest pain (principal); R05 Cough | CPT/HCPCS: A0425; A0427 ==

== ENCOUNTER 2019-11-24 13:51 | Emergency (ER) | payer MEDICARE, MEDICAID ==
[2019-11-24 14:05] VITALS: BP 108/80
--- NOTE | 2019-11-24 14:16 | ED Physician Documentation ---
History of Present Illness - Stated complaint Stated Complaint: CHEST PRESSURE - Chief complaint Chief Complaint: Cardiac - History obtained from History obtained from: Patient - History of Present Illness Timing: How many weeks ago (3) Pain level max: 5 Pain level now: 3 - Additonal information Additional information: 49-year-old female presents to the emergency department stating she has just not been feeling well for the past 3 weeks. She states that she has had chest heaviness, nausea, diarrhea, body aches and cough. Nothing makes it better or worse. She states that she has an appointment with her doctor this week. Review of Systems Ten Systems: 10 systems reviewed and negative Constitutional: denies: Fever, Chills Nose: reports: Rhinorrhea / runny nose, Congestion Cardiac: reports: Chest pain / pressure (Sharp) Respiratory: reports: Cough. denies: Dyspnea, Wheezing GI: reports: Nausea, Diarrhea. 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 : None HEENT: Chronic vision loss Psych: Depression, Anxiety, Bipolar disorder, Schizophrenia, Panic attacks, Claustrophobia Musculoskeletal: Chronic back pain Derm: None - Past Surgical History Past Surgical History: Yes General: Appendectomy Ortho: Spine surgery, Other /MANUFACTURERS REPRESENTATIVE: Tubal ligation, 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 - Present Medications Home Medications: Ambulatory Orders Medication Instructions Recorded Confirmed QUEtiapine [SEROquel] 450 mg ORAL QPM 09/09/15 11/24/19 Ziprasidone HCl 80 mg ORAL QPM 09/09/15 11/24/19 Albuterol Sulfate [Proair Hfa 8.5 gm IH QID #1 hfa.aer.ad 09/20/15 11/24/19 Inhaler] Trazodone HCl 3 tab PO DAILY PM 09/13/17 11/24/19 Budesonide/Formoterol Fumarate 10.2 gm IH BID 01/07/19 11/24/19 [Symbicort 160-4.5 Mcg Inhaler] Gabapentin 600 mg PO BID 01/07/19 11/24/19 Metformin HCl 500 mg PO DAILY 01/07/19 11/24/19 Topiramate 25 mg PO BID 01/07/19 11/24/19 polyethylene glycoL 3350 [Miralax] 17 gm PO DAILY PRN 01/07/19 11/24/19 Prazosin [Minipress] 2 mg PO DAILY 02/05/19 11/24/19 Sertraline HCl 150 mg PO DAILY 02/05/19 11/24/19 Cyclobenzaprine [Flexeril] 10 mg PO TID PRN #20 tablet 11/02/19 11/24/19 Oxycodone HCl/Acetaminophen 1 - 2 each PO Q6H PRN #14 tablet 11/02/19 11/24/19 [Percocet 5-325 mg Tablet] Potassium Chloride 1 tab DAILY 11/24/19 11/24/19 - Allergies Allergies/Adverse Reactions: Allergies Allergy/AdvReac Type Severity Reaction Status Date / Time amoxicillin [Amoxicillin] Allergy Intermediate Emesis Verified 11/24/19 13:54 aspartame Allergy Unknown Verified 11/24/19 13:54 chocolate flavor Allergy Unknown Verified 11/24/19 13:54 NSAIDS (Non-Steroidal Allergy Unknown Verified 11/24/19 13:54 Anti-Inflamma Penicillins Allergy Unknown Verified 11/24/19 13:54 wheat Allergy Unknown Verified 11/24/19 13:54 naproxen [From Naprosyn] AdvReac Intermediate Hives Verified 11/24/19 13:54 hydrocodone bitartrate * AdvReac Emesis Verified 11/24/19 13:54 [From Vicodin] lactase [From Dairy Aid] AdvReac Unknown Verified 11/24/19 13:54 - Social History Does the pt smoke?: Yes Smoking Status: Current every day smoker Does the pt drink ETOH?: No Does the pt have substance abuse?: No - Immunizations Immunizations are current?: Yes - POLST Patient has POLST: No PD ED PE NORMAL - Vitals Vital signs reviewed: Yes - General General: Alert and oriented X 3, No acute distress, Other (Obese female) - HEENT HEENT: PERRL, Ears normal, Moist mucous membranes, Pharynx benign - Neck Neck: Supple, no meningeal sign - Cardiac Cardiac: RRR, Strong equal pulses - Respiratory Respiratory: No respiratory distress, Clear bilaterally - Abdomen Abdomen: Soft, Non tender, Non distended - Back Back: No CVA TTP, No spinal TTP - Derm Derm: Warm and dry, No rash - Extremities Extremities: No calf tenderness / cord - Neuro Neuro: Alert and oriented X 3 Results - Vitals Vitals: Vital Signs - 24 hr 11/24/19 11/24/19 13:55 14:03 Temperature 36.7 C Heart Rate 85 80 Respiratory 18 18 Rate Blood Pressure 110/78 108/80 O2 Saturation 98 95 Oxygen O2 Source Room air - EKG (time done) 1403 Rate: Rate (enter#) (81) Rhythm: NSR Pompey: Normal Intervals: Normal IA QRS: Normal Ischemia: Normal ST segments - Labs Labs: Laboratory Tests 11/24/19 11/24/19 11/24/19 14:10 14:10 14:10 WBC 12.3 H RBC 4.93 Hgb 11.4 L Hct 37.3 MCV 75.7 L MCH 23.1 L MCHC 30.6 L RDW 19.1 H Plt Count 344 MPV 8.7 Neut # (Auto) 8.2 H Lymph # (Auto) 3.2 [place] # (Auto) 0.6 Eos # (Auto) 0.2 Baso # (Auto) 0.1 Absolute Nucleated RBC 0.00 Nucleated RBC % 0.0 Sodium 138 Potassium 3.6 Chloride 103 Carbon Dioxide 26 Anion Gap 9.0 BUN 12 Creatinine 1.0 Estimated GFR (MDRD) 58 L Glucose 99 Calcium 9.1 Total Bilirubin 0.3 AST 13 ALT 12 Alkaline Phosphatase 94 Troponin I High Sens < 2.3 L Total Protein 7.5 Albumin 4.1 Globulin 3.4 Albumin/Globulin Ratio 1.2 Lipase 28 - Rads (name of study) Chest x-ray Radiology: Prelim report reviewed, EMP read contemporaneously, See rad report (no acute abnormality) PD MEDICAL DECISION MAKING - ED course Complexity details: reviewed results, re-evaluated patient, considered differential (No ST elevation IA, no aortic dissection, no PE, no tension pneumothorax, no aortic aneurysm), d/w patient ED course: Patient with atypical chest pain. No evidence of acute coronary syndrome. No evidence of pulmonary embolus. She appears to have a viral syndrome. She is well-appearing, nontoxic. No hypoxia. No tachycardia. Tolerating p.o. without difficulty. Ambulating without difficulty. Tolerating p.o. without difficulty. We will continue supportive care and have her follow-up with her doctor for further care. Patient counseled regarding signs and symptoms for which I bel ieve and urgent re-evaluation would be necessary. Patient with good understanding of and agreement to plan and is comfortable going home at this time This document was made in part using voice recognition software. While efforts are made to proofread this document, sound alike and grammatical errors may occur. Departure - Departure Disposition: 01 Home, Self Care Clinical Impression: Viral syndrome Chest pain Qualifiers: Chest pain type: unspecified Qualified Code(s): R07.9 - Chest pain, unspecified Condition: Good Instructions: ED Chest Pain Atypical Unkn Cause, ED Viral Syndrome Follow-Up: Zan Ornelas MD [Primary Care Provider] - Within 1 week Comments: Drink plenty of fluids and rest. Return if you worsen. You can use motrin or tylenol as needed for pain. Discharge Date/Time: 11/24/19 15:17
[2019-11-24 14:18] LABS: BASOPHILS # (AUTO) 0.1 10^3/uL (0.0-0.1); BASOPHILS % (AUTO) 0.7 %; EOSINOPHILS # (AUTO) 0.2 10^3/uL (0.0-0.7); EOSINOPHILS % (AUTO) 1.2 %; HGB - HEMOGLOBIN 11.4 g/dL (12.0-16.0); LYMPHOCYTES # (AUTO) 3.2 10^3/uL (1.5-3.5); LYMPHOCYTES % (AUTO) 26.2 %; MEAN CORPUSCULAR HEMOGLOBIN 23.1 pg (27.0-31.0); MEAN CORPUSCULAR HGB CONC 30.6 g/dL (32.0-36.0); MEAN CORPUSCULAR VOLUME 75.7 fL (81.0-99.0); MEAN PLATELET VOLUME 8.7 fL (7.9-10.8); MONOCYTES # (AUTO) 0.6 10^3/uL (0.0-1.0); MONOCYTES % (AUTO) 4.6 %; NEUTROPHILS # (AUTO) 8.2 10^3/uL (1.5-6.6); NEUTROPHILS % (AUTO) 66.7 %; PLT - PLATELET COUNT 344 10^3/uL (130-450); RED BLOOD COUNT 4.93 10^6/uL (4.20-5.40); RED CELL DISTRIBUTION WIDTH 19.1 % (12.0-15.0); WHITE BLOOD COUNT 12.3 x10^3/uL (4.8-10.8)
[2019-11-24 14:31] LABS: ALBUMIN 4.1 g/dL (3.2-5.5); ALBUMIN/GLOBULIN RATIO 1.2 (1.0-2.2); BILIRUBIN,TOTAL 0.3 mg/dL (0.2-1.0); CALCIUM 9.1 mg/dL (8.5-10.3); TOTAL PROTEIN 7.5 g/dL (6.7-8.2)
--- NOTE | 2019-11-24 14:58 | XRAY Report ---
Reason: Chest Pain Procedure Date: 11/24/2019 Accession Number: [id number] / [id number] Procedure: XR - Chest 1 View X-Ray CPT Code: 91909 Final Report FULL RESULT: EXAM: CHEST RADIOGRAPHY EXAM DATE: 11/24/2019 02:28 PM. CLINICAL HISTORY: Chest Pain. Cough and chills for past few days. COMPARISON: RIBS W/PA CHEST RT 10/04/2019 10:44 AM CHEST 2 VIEW 07/25/2019 3:18 PM. TECHNIQUE: 1 view. FINDINGS: Lungs/Pleura: The patient is mildly rotated. No focal opacities evident. No pleural effusion. No pneumothorax. Mediastinum: Within exam limitations, the cardiomediastinal contour is normal. Other: No acute osseous abnormality. IMPRESSION: No acute cardiopulmonary abnormality. No focal pulmonary consolidation. RADIA
== END 2019-11-24 15:17 | disposition home or self-care (01) ==
LOC: EDUNIT# → ED 13:51
DX: B34.9 Viral infection, unspecified (principal); R07.89 Other chest pain; I10 Essential (primary) hypertension; E11.9 Type 2 diabetes mellitus without complications; Z79.84 Long term (current) use of oral hypoglycemic drugs; F17.210 Nicotine dependence, cigarettes, uncomplicated
CPT/HCPCS: 36415; 71045; 80053; 83690; 84484; 85025; 93005; 99284; 99285

== ENCOUNTER 2020-01-08 08:57 | Outpatient (CLI) | payer MEDICARE, MEDICAID ==
--- NOTE | 2020-01-08 14:24 | CARDIAC PROCEDURE NOTE ---
DATE OF SERVICE: 01/08/2020 Physician: Kelly Diane MD, [facility] INDICATION: Chest pain. CARDIAC RISK FACTORS: Postmenopausal status, smoker, obesity. DESCRIPTION OF PROCEDURE: After signing informed consent, the patient underwent a Blake-protocol treadmill stress test with nuclear myocardial perfusion imaging. Resting heart rate: 73. Peak heart rate: 135 (80% predicted maximum heart rate for age). Resting blood pressure: 115/76. Peak blood pressure: 140/73. The patient exercised for 2 minutes and 12 seconds on a Blake-protocol treadmill, she achieved 4.6 METS only. The patient reported her perceived exertion at 13/20 on the Nehemiah scale. She reported getting her typical chest pain rated at 7/10, and therefore treadmill exercise was stopped before achieving target heart rate. She reported being short of breath and oxygen saturation dropped to 89% on room air at peak exercise. Her chest pain resolved in recovery in 5 minutes. RESTING ELECTROCARDIOGRAM: Normal sinus rhythm, right axis deviation, right IVCD. ELECTROCARDIOGRAM AT PEAK: Even further rightward axis, diffuse upsloping ST depression in leads II, III, aVF, and V3 through V6. SUMMARY 1. Abnormal resting electrocardiogram, suggesting cor pulmonale. 2. Poor exercise tolerance. 3. Oxygen desaturation occurs with exercise. 4. The patient did develop chest pain with exertion, and exercise was stopped before achieving target heart rate therefore. 5. Nonspecific EKG changes occur with exertion. 6. Nuclear images reported separately. 7. This patient's cardiac risk based on all the above: High. cc: Zan Ornelas MD TD: 01/08/2020 13:41 [facility]
--- NOTE | 2020-01-08 15:22 | Nuclear Medicine Report ---
Reason: CHEST PAIN Procedure Date: 01/08/2020 Accession Number: [id number] / [id number] Procedure: NM - Myocardial Perfusion STR/RST CPT Code: Final Report FULL RESULT: EXAM: SINGLE-ISOTOPE EXERCISE STRESS TEST. SINGLE-ISOTOPE AND ONE-DAY REST/STRESS MYOCARDIAL PERFUSION SCANS WITH TOMOGRAPHIC IMAGING, QUANTITATIVE ANALYSIS, WALL MOTION ANALYSIS AND CALCULATION OF EJECTION FRACTION. EXAM DATE: 01/08/2020 02:10 PM. CLINICAL HISTORY: CHEST PAIN. COMPARISON: None. TECHNIQUE: A rest myocardial perfusion scan was done with tomography after the intravenous administration of 10.3 mCi Tc-99m sestamibi. After an appropriate delay, a treadmill exercise stress was performed according to department protocol. The patient exercised for 2 minutes and 12 seconds. The maximum heart rate was 135 bpm, which was 79% of the maximum predicted heart rate of 169 bpm. At approximately peak heart rate, 42.9 mCi of Tc-99m sestamibi was injected for stress myocardial perfusion scan. Motion correction was applied when appropriate. Gated tomographic images were obtained for wall motion analysis and computation of left ventricular ejection fraction. FINDINGS: Perfusion images: Left ventricular chamber size appears normal at rest and unchanged at stress. No convincing fixed perfusion deficits. Probable anterior wall breast attenuation artifact most pronounced apically. Questionable small to moderate size region of mild reversibility at the mid to apical anterior/anterolateral wall, mild stress-induced ischemia versus differential breast attenuation artifact. SSS 12, SRS 4, SDS 8. Gated images: No convincing focal wall motion abnormality. Calculated left ventricular EDV 56 mL, ESV 10 mL. The left ventricular ejection fraction is estimated at 83% (normal > 50%). IMPRESSION: 1. Questionable small to moderate size region of mild reversibility at the mid to apical anterior/anterolateral wall, mild stress-induced ischemia versus differential breast attenuation artifact. 2. No convincing fixed perfusion deficits. 3. Left ventricular ejection fraction of 83% (normal > 50%). Please correlate findings with stress ECG tracings and procedure notes. RADIA
== END 2020-01-08 08:58 | disposition home or self-care (01) ==
LOC: DI 08:57
PROVIDERS: ATTEND Family Medicine
DX: R07.9 Chest pain, unspecified (principal); R94.31 Abnormal electrocardiogram [ECG] [EKG]; F17.200 Nicotine dependence, unspecified, uncomplicated; E66.9 Obesity, unspecified; Z68.36 Body mass index [BMI] 36.0-36.9, adult; Z78.0 Asymptomatic menopausal state
CPT/HCPCS: 78452; 93017; A9500

== ENCOUNTER 2020-01-22 10:06 | Outpatient (CLI) | payer MEDICARE, MEDICAID ==
[2020-01-22 12:46] LABS: BASOPHILS # (AUTO) 0.1 10^3/uL (0.0-0.1); BASOPHILS % (AUTO) 0.7 %; EOSINOPHILS # (AUTO) 0.2 10^3/uL (0.0-0.7); EOSINOPHILS % (AUTO) 1.7 %; HGB - HEMOGLOBIN 11.2 g/dL (12.0-16.0); LYMPHOCYTES # (AUTO) 2.5 10^3/uL (1.5-3.5); LYMPHOCYTES % (AUTO) 22.5 %; MEAN CORPUSCULAR HEMOGLOBIN 22.1 pg (27.0-31.0); MEAN CORPUSCULAR VOLUME 76.3 fL (81.0-99.0); MEAN PLATELET VOLUME 9.7 fL (7.9-10.8); MONOCYTES # (AUTO) 0.4 10^3/uL (0.0-1.0); MONOCYTES % (AUTO) 3.3 %; NEUTROPHILS # (AUTO) 7.8 10^3/uL (1.5-6.6); NEUTROPHILS % (AUTO) 71.2 %; PLT - PLATELET COUNT 363 10^3/uL (130-450); RED BLOOD COUNT 5.06 10^6/uL (4.20-5.40); RED CELL DISTRIBUTION WIDTH 23.6 % (12.0-15.0); WHITE BLOOD COUNT 10.9 x10^3/uL (4.8-10.8)
[2020-01-22 13:24] LABS: % IRON SATURATION 5 % (20-50); IRON 18 ug/dL (28-170); TOTAL IRON BINDING CAPACITY 358 ug/dL (250-450); TRANSFERRIN 256 mg/dL (192-382)
[2020-01-22 13:33] LABS: RBC MORPHOLOGY (MULTIPLE) 4+ ANISOCYTOSIS (NORMAL)
== END 2020-01-22 23:59 | disposition home or self-care (01) ==
LOC: LAB.WCP 10:06
PROVIDERS: ATTEND Family Medicine
DX: D50.9 Iron deficiency anemia, unspecified (principal)
CPT/HCPCS: 36415; 82728; 83540; 84466; 85025

== ENCOUNTER 2020-03-24 13:30 | Outpatient (CLI) | payer MEDICARE, MEDICAID | END 2020-03-24 23:59 | disposition home or self-care (01) | LOC: LAB 13:30 | PROVIDERS: ATTEND Family Medicine | DX: R05 Cough (principal); Z20.828 Contact with and (suspected) exposure to other viral communicable diseases ==

== ENCOUNTER 2020-05-12 15:37 | Outpatient (CLI) | payer MEDICARE, MEDICAID ==
[2020-05-12 18:32] LABS: BASOPHILS # (AUTO) 0.1 10^3/uL (0.0-0.1); BASOPHILS % (AUTO) 0.5 %; EOSINOPHILS # (AUTO) 0.1 10^3/uL (0.0-0.7); EOSINOPHILS % (AUTO) 0.8 %; HGB - HEMOGLOBIN 12.1 g/dL (12.0-16.0); LYMPHOCYTES # (AUTO) 2.8 10^3/uL (1.5-3.5); LYMPHOCYTES % (AUTO) 21.2 %; MEAN CORPUSCULAR HEMOGLOBIN 22.2 pg (27.0-31.0); MEAN CORPUSCULAR HGB CONC 29.5 g/dL (32.0-36.0); MEAN CORPUSCULAR VOLUME 75.4 fL (81.0-99.0); MEAN PLATELET VOLUME 9.3 fL (7.9-10.8); MONOCYTES # (AUTO) 0.6 10^3/uL (0.0-1.0); MONOCYTES % (AUTO) 4.4 %; NEUTROPHILS # (AUTO) 9.5 10^3/uL (1.5-6.6); NEUTROPHILS % (AUTO) 72.6 %; PLT - PLATELET COUNT 410 10^3/uL (130-450); RED BLOOD COUNT 5.44 10^6/uL (4.20-5.40); RED CELL DISTRIBUTION WIDTH 22.4 % (12.0-15.0); WHITE BLOOD COUNT 13.1 x10^3/uL (4.8-10.8)
[2020-05-12 18:51] LABS: PLATELET ESTIMATE, MANUAL NORMAL (130-450,000) (NORMAL); PLATELET MORPHOLOGY NORMAL APPEARANCE (NORMAL)
[2020-05-12 18:56] LABS: CREATININE,URINE 84.3 mg/dL; MICROALBUM/CREATININE RATIO,UR 5.9 ug/mg (<30.0); MICROALBUMIN,URINE 0.5 mg/dL (0-300.0)
[2020-05-12 19:05] LABS: ALBUMIN/GLOBULIN RATIO 1.1 (1.0-2.2); BILIRUBIN,TOTAL 0.3 mg/dL (0.2-1.0); TOTAL PROTEIN 7.6 g/dL (6.7-8.2)
[2020-05-12 20:44] LABS: HEMOGLOBIN A1c% 6.6 % (4.27-6.07)
== END 2020-05-12 23:59 | disposition home or self-care (01) ==
LOC: LAB.WCP 15:37
PROVIDERS: ATTEND Family Medicine
DX: E11.9 Type 2 diabetes mellitus without complications (principal); D50.9 Iron deficiency anemia, unspecified
CPT/HCPCS: 36415; 80053; 82043; 82570; 82728; 83036; 83540; 84466; 85025

== ENCOUNTER 2020-05-15 07:00 | Outpatient (CLI) | payer MEDICARE, MEDICAID ==
[2020-05-15 18:17] LABS: BASOPHILS # (AUTO) 0.1 10^3/uL (0.0-0.1); BASOPHILS % (AUTO) 0.6 %; EOSINOPHILS # (AUTO) 0.2 10^3/uL (0.0-0.7); EOSINOPHILS % (AUTO) 1.6 %; HGB - HEMOGLOBIN 12.4 g/dL (12.0-16.0); LYMPHOCYTES # (AUTO) 3.3 10^3/uL (1.5-3.5); LYMPHOCYTES % (AUTO) 28.2 %; MEAN CORPUSCULAR HEMOGLOBIN 23.6 pg (27.0-31.0); MEAN CORPUSCULAR HGB CONC 31.2 g/dL (32.0-36.0); MEAN CORPUSCULAR VOLUME 75.5 fL (81.0-99.0); MEAN PLATELET VOLUME 9.3 fL (7.9-10.8); MONOCYTES # (AUTO) 0.7 10^3/uL (0.0-1.0); MONOCYTES % (AUTO) 5.9 %; NEUTROPHILS # (AUTO) 7.4 10^3/uL (1.5-6.6); NEUTROPHILS % (AUTO) 63.3 %; PLT - PLATELET COUNT 383 10^3/uL (130-450); RED BLOOD COUNT 5.26 10^6/uL (4.20-5.40); RED CELL DISTRIBUTION WIDTH 22.9 % (12.0-15.0); WHITE BLOOD COUNT 11.7 x10^3/uL (4.8-10.8)
[2020-05-15 18:54] LABS: CALCIUM 9.3 mg/dL (8.5-10.3)
[2020-05-15 19:36] LABS: RBC MORPHOLOGY (MULTIPLE) 2+ ANISOCYTOSIS (NORMAL)
[2020-05-15 19:37] LABS: PLATELET ESTIMATE, MANUAL NORMAL (130-450,000) (NORMAL); PLATELET MORPHOLOGY NORMAL APPEARANCE (NORMAL)
== END 2020-05-15 23:59 | disposition home or self-care (01) ==
LOC: LAB.WCP 07:00
PROVIDERS: ATTEND Family Medicine
DX: R10.9 Unspecified abdominal pain (principal); D50.9 Iron deficiency anemia, unspecified; B96.81 Helicobacter pylori [H. pylori] as the cause of diseases classified elsewhere; R19.7 Diarrhea, unspecified; E87.6 Hypokalemia
CPT/HCPCS: 36415; 80048; 82150; 83690; 85025; 87338

== ENCOUNTER 2020-05-15 08:00 | Outpatient (CLI) | payer MEDICARE, MEDICAID ==
[2020-05-15 12:13] LABS: H. PYLORIS ANTIGEN STL NEGATIVE (Negative)
== END 2020-05-15 23:49 | disposition home or self-care (01) ==
LOC: LAB.R 08:00
PROVIDERS: ATTEND Family Medicine
DX: R10.9 Unspecified abdominal pain (principal); D50.9 Iron deficiency anemia, unspecified; B96.81 Helicobacter pylori [H. pylori] as the cause of diseases classified elsewhere; R19.7 Diarrhea, unspecified; E87.6 Hypokalemia
CPT/HCPCS: 87338

== ENCOUNTER 2020-07-28 15:43 | Outpatient (CLI) | payer MEDICARE, MEDICAID ==
--- NOTE | 2020-07-28 15:36 | SLEEP CARE CONSULTATION ---
Information from patient questionnaire entered by Kayy Del Angel. I have reviewed and concur with the information entered by Kayy Del Angel. This document represents the service I personally performed and the decisions made by me, Kali Taveras MD, [facility]. History of Present Illness Service Date and Time: 07/28/2020 1500 Previous diagnosis: Mild, Obstructive Sleep Apnea-Hypopnea Syndrome AHI: 5.1 (in 2019) Reason for follow up: annual (last seen 07/2019) Equipment type: CPAP Equipment obtained from: [facility] Mask style: Nasal pillows Prior sleep [facility]: Yes [facility] HPI additional information: To minimize the risk of COVID-19 exposure, the patient has requested and consented to this telephone visit. The patient also agrees to having his insurance billed. HPI: Ms. Constantino was called today for follow up of nasal CPAP therapy. She was diagnosed to have mild obstructive sleep apnea-hypopnea syndrome and hypoxemia (AHI was 5.1). She gets her supplies from [facility]. The patient wears the nasal pillows. She also has oxygen bled in at 3 L/minute. If she does not use her CPAP, she does not get the oxygen. She reports using the CPAP nightly but not all through the night. The compliance data show usage in 144 out of the past 180 nights, averaging 2.1 hours a night. She complained of no particular problem with the device such as soreness on the face, dry nose, epistaxis, nasal congestion or headache. She thinks that the pressure of 5 10 cmH2O is comfortable. On the CPAP therapy she notices improvement in her sleep quality, and that she wakes up feeling fresher in the morning and more awake/alert during the day. The average residual AHI is 3.3; and average time in large leak per day is 43 seconds. The 90th percentile pressure is 6.7 cmH2O. Sleep Study - Results Prior sleep studies: Yes [facility] and [facility] CPAP Compliance Data - Data Reviewed with Patient Average duration of nightly device use: 3.5 Compliance rate %: 33.3 (30 days)(16.1 for 180) Current pressure setting (cmH2O): 5-10 Humidity settin Heated hose settin Average residual AHI: 3.1 Average large leak: 4 sec Subjective Initial [place] Sleepiness Scale score: 12 (in 2010) Allergies and Home Medications Drug allergies reviewed: Yes Home medication list reviewed: Yes Review of Systems Review of systems same as previous: Yes Physical Exam Height: 5 ft 2 in Impression and Plan IMPRESSION: 1. Obstructive Sleep Apnea-Hypopnea Syndrome, mild, with the patient doing well on nasal CPAP therapy. She has poor compliance partly due to insomnia. The current pressure appears effective and comfortable. Because her obstructive sleep apnea-hypopnea is very mild, I will not insist on her using the device more. Oxygen therapy is more important in her case. I believe her hypoxemia is due to COPD give life-long history of cigarette smoking (and still has not quit). PLAN: 1. Leave autoCPAP to 5 - 10 cmH2O. 2. Use oxygen with or without CPAP. [facility] should provide her with nasal prongs. 3. Quit smoking 4. Return in one year for follow up or earlier if there is any problem with the treatment. Counseling Topics: Smoking cessation Visit Type: Telehealth Video Video Type: [facility] Patient Location: Home Patient agrees and consents to this telehealth visit type: Yes Patient agrees to have their insurance billed: Yes Time Spent with Patient (minutes): 15 Provider Statement: I spent 100% of the Telehealth Video Call with the patient with greater than 50% spent counseling the patient and coordination of care.
== END 2020-07-28 15:44 | disposition home or self-care (01) ==
LOC: SC 15:43
PROVIDERS: ATTEND Internal Medicine Pulmonary Disease
DX: G47.33 Obstructive sleep apnea (adult) (pediatric) (principal); R09.02 Hypoxemia; J44.9 Chronic obstructive pulmonary disease, unspecified; F17.210 Nicotine dependence, cigarettes, uncomplicated

== ENCOUNTER 2020-10-12 11:50 | Outpatient (CLI) | payer MEDICARE, MEDICAID | END 2020-10-12 11:51 | disposition critical access hospital (66) | LOC: EMS 11:50 | PROVIDERS: ATTEND Surgery | DX: R42 Dizziness and giddiness (principal); R51.9 Headache, unspecified | CPT/HCPCS: A0425; A0429 ==

== ENCOUNTER 2020-10-12 12:11 | Emergency (ER) | payer MEDICARE, MEDICAID ==
[2020-10-12] MEDS ORDERED: MORPHINE 2 MG/ML CARPUJECT IVP STA ×2 (12:25→14:06)
[2020-10-12] MEDS ORDERED: SODIUM CHLORIDE 0.9% 1,000 ML IV STA (12:26)
--- NOTE | 2020-10-12 12:29 | ED Physician Documentation ---
PD HPI MAJOR TRAUMA - Stated complaint Stated Complaint: BACK PX/GLF - Chief complaint Chief Complaint: Trauma Hd/Nk - History obtained from History obtained from: Patient, EMS - Additional information Additional information: 3 nights ago around 3 AM she passed out while she was going outside to have a cigarette. She thinks she hit her posterior lower right ribs on a chair on the way down. She not sure how long she was lost consciousness. She has persistent severe right lower posterior rib pain. She has a very mild headache. No nausea. She feels like she might be dehydrated. She has had some dizziness, both vertiginous and lightheadedness. Review of Systems Ten Systems: 10 systems reviewed and negative Constitutional: denies: Fever, Chills Throat: reports: Reviewed and negative Cardiac: reports: Reviewed and negative Respiratory: reports: Reviewed and negative PD PAST MEDICAL HISTORY - Past Medical History Cardiovascular: Hypertension Respiratory: Asthma Neuro: Migraines Endocrine/Autoimmune: Type 2 diabetes GI: Chronic diarrhea RESOURCE ECONOMIST: None : None HEENT: Chronic vision loss Psych: Depression, Anxiety, Bipolar disorder, Schizophrenia, Panic attacks, Claustrophobia Musculoskeletal: Chronic back pain Derm: None - Past Surgical History Past Surgical History: Yes General: Appendectomy Ortho: Spine surgery, Other /RESOURCE ECONOMIST: Tubal ligation, 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 - Present Medications Home Medications: Ambulatory Orders Medication Instructions Recorded Confirmed QUEtiapine [SEROquel] 450 mg ORAL QPM 09/09/15 11/24/19 Ziprasidone HCl 80 mg ORAL QPM 09/09/15 11/24/19 Albuterol Sulfate [Proair Hfa 8.5 gm IH QID #1 hfa.aer.ad 09/20/15 11/24/19 Inhaler] Trazodone HCl 3 tab PO DAILY PM 09/13/17 11/24/19 Budesonide/Formoterol Fumarate 10.2 gm IH BID 01/07/19 11/24/19 [Symbicort 160-4.5 Mcg Inhaler] Gabapentin 600 mg PO BID 01/07/19 11/24/19 Metformin HCl 500 mg PO DAILY 01/07/19 11/24/19 Topiramate 25 mg PO BID 01/07/19 11/24/19 polyethylene glycoL 3350 [Miralax] 17 gm PO DAILY PRN 01/07/19 11/24/19 Prazosin [Minipress] 2 mg PO DAILY 02/05/19 11/24/19 Sertraline HCl 150 mg PO DAILY 02/05/19 11/24/19 Cyclobenzaprine [Flexeril] 10 mg PO TID PRN #20 tablet 11/02/19 11/24/19 Oxycodone HCl/Acetaminophen 1 - 2 each PO Q6H PRN #14 tablet 11/02/19 11/24/19 [Percocet 5-325 mg Tablet] Potassium Chloride 1 tab DAILY 11/24/19 11/24/19 Morphine Ir [Ms Ir] 15 mg PO Q6H PRN #10 tablet 10/12/20 - Allergies Allergies/Adverse Reactions: Allergies Allergy/AdvReac Type Severity Reaction Status Date / Time amoxicillin [Amoxicillin] Allergy Intermediate Emesis Verified 10/12/20 12:16 aspartame Allergy Unknown Verified 10/12/20 12:16 chocolate flavor Allergy Unknown Verified 10/12/20 12:16 NSAIDS (Non-Steroidal Allergy Unknown Verified 10/12/20 12:16 Anti-Inflamma Penicillins Allergy Unknown Verified 10/12/20 12:16 wheat Allergy Unknown Verified 10/12/20 12:16 naproxen [From Naprosyn] AdvReac Intermediate Hives Verified 10/12/20 12:16 hydrocodone bitartrate * AdvReac Emesis Verified 10/12/20 12:16 [From Vicodin] lactase [From Dairy Aid] AdvReac Unknown Verified 10/12/20 12:16 - Social History Does the pt smoke?: Yes Smoking Status: Current every day smoker Does the pt drink ETOH?: No Does the pt have substance abuse?: No - Immunizations Immunizations are current?: Yes - POLST Patient has POLST: No PD ED PE NORMAL - Vitals Vital signs reviewed: Yes - General General: Alert and oriented X 3, No acute distress - HEENT HEENT: PERRL, EOMI, Pharynx benign - Neck Neck: Supple, no meningeal sign, No bony TTP - Cardiac Cardiac: RRR, No murmur - Respiratory Respiratory: No respiratory distress, Clear bilaterally, Other (Mild TTP lower posterior R ribs, no nadine/ecchymosis) - Abdomen Abdomen: Soft, Non tender - Back Back: No CVA TTP, No spinal TTP - Derm Derm: Normal color, Warm and dry - Extremities Extremities: No edema, No calf tenderness / cord - Neuro Neuro: Alert and oriented X 3, No motor deficit, No sensory deficit, Normal speech Eye Opening: Spontaneous Motor: Obeys Commands Verbal: Oriented GCS Score: 15 - Psych Psych: Normal mood, Normal affect Results - Vitals Vitals: Vital Signs - 24 hr 10/12/20 10/12/20 12:16 12:25 Temperature 36.5 C 36.5 C Heart Rate 85 85 Respiratory 14 14 Rate Blood Pressure 122/81 H 122/81 H O2 Saturation 95 95 Oxygen O2 Source Room air - EKG (time done) 1226 Rate: Rate (enter#) (78) Rhythm: NSR [place]: RAD QRS: Low voltage Ischemia: Normal ST segments Computer interpretation: Agree with computer - Labs Labs: Laboratory Tests 10/12/20 10/12/20 12:45 12:45 WBC 10.9 H RBC 4.30 Hgb 11.9 L Hct 37.4 MCV 87.0 MCH 27.7 MCHC 31.8 L RDW 22.2 H Plt Count 307 MPV 8.5 Neut # (Auto) 6.9 H Lymph # (Auto) 2.8 Bound[place] # (Auto) 0.6 Eos # (Auto) 0.5 Baso # (Auto) 0.1 Absolute Nucleated RBC 0.00 Nucleated RBC % 0.0 Manual Slide Review Indicated Sodium 134 L Potassium 3.5 Chloride 99 L Carbon Dioxide 26 Anion Gap 9.0 BUN 9 Creatinine 1.2 H Estimated GFR (MDRD) 47 L Glucose 107 H Calcium 8.6 Magnesium 2.1 PD MEDICAL DECISION MAKING - ED course ED course: 50-year-old woman status post potential syncopal episode 4 days ago, mostly complaining of right posterior rib pain, she has a mild headache, doubt significant head injury as I think manifestations would be more significant by now. 50-year-old woman on multiple psychoactive medications and diuretics presents after having blacked out while going out for a cigarette a few nights ago. No evidence of active cardiac disease. She is feeling better after some pain medication and fluids. Her main complaint was rib pain, right rib series with PA chest negative for fracture. They remarked potential edema but this is not present clinically. Departure - Departure Disposition: 01 Home, Self Care Clinical Impression: Back pain Qualifiers: Back pain location: thoracic back pain Chronicity: acute Back pain laterality: right Qualified Code(s): M54.6 - Pain in thoracic spine Syncopal episodes Qualifiers: Syncope type: unspecified Qualified Code(s): R55 - Syncope and collapse Condition: Good Record reviewed to determine appropriate education?: Yes Instructions: ED Fainting Unkn Cause, ED Contusion Rib Prescriptions: Morphine Ir [Ms Ir] 15 mg PO Q6H PRN #10 tablet PRN Reason: Pain Comments: Follow-up with your primary care physician, next available appointment. Return for new or worsening symptoms. Do not drink or drive while taking pain medication. Drink plenty of fluids.
[2020-10-12 12:49] LABS: BASOPHILS # (AUTO) 0.1 10^3/uL (0.0-0.1); BASOPHILS % (AUTO) 0.6 %; EOSINOPHILS # (AUTO) 0.5 10^3/uL (0.0-0.7); EOSINOPHILS % (AUTO) 4.2 %; HGB - HEMOGLOBIN 11.9 g/dL (12.0-16.0); LYMPHOCYTES # (AUTO) 2.8 10^3/uL (1.5-3.5); MEAN CORPUSCULAR HEMOGLOBIN 27.7 pg (27.0-31.0); MEAN CORPUSCULAR HGB CONC 31.8 g/dL (32.0-36.0); MEAN PLATELET VOLUME 8.5 fL (7.9-10.8); MONOCYTES # (AUTO) 0.6 10^3/uL (0.0-1.0); MONOCYTES % (AUTO) 5.1 %; NEUTROPHILS # (AUTO) 6.9 10^3/uL (1.5-6.6); NEUTROPHILS % (AUTO) 63.6 %; PLT - PLATELET COUNT 307 10^3/uL (130-450); RED CELL DISTRIBUTION WIDTH 22.2 % (12.0-15.0); WHITE BLOOD COUNT 10.9 x10^3/uL (4.8-10.8)
[2020-10-12 12:57] LABS: CALCIUM 8.6 mg/dL (8.5-10.3); CREATININE 1.2 mg/dL (0.4-1.0); MAGNESIUM 2.1 mg/dL (1.7-2.8)
--- NOTE | 2020-10-12 14:00 | XRAY Report ---
PROCEDURE: Ribs w/PA Chest RT INDICATIONS: rib inj TECHNIQUE: 3 views of the right ribs were acquired, along with a single view chest. COMPARISON: 11/24/2019 FINDINGS: Surgical changes and devices: There is a right abdominal wall implanted neurostimulator device presen t with an epidural lead projecting over the T8-T9 level. Bones and chest wall: No displaced rib fracture identified. No suspicious bony lesions. Overlying s oft tissues appear unremarkable. Lungs and pleura: There is pulmonary vascular prominence suggestive of mild edema. No pleural effusi ons or pneumothorax. Mediastinum: Mediastinal contours appear unchanged. Heart size is enlarged. IMPRESSION: 1. No displaced rib fracture identified. 2. Pulmonary vascular prominence digestive of mild edema. Reviewed by: Franky Vega MD on 10/12/2020 1:59 PM PST Approved by: Franky Vega MD on 10/12/2020 1:59 PM PST Station ID: [id number]
[2020-10-12 14:20] VITALS: BP 134/96
== END 2020-10-12 14:26 | disposition home or self-care (01) ==
LOC: EDUNIT# → ED 12:11
DX: R55 Syncope and collapse (principal); R07.81 Pleurodynia; R51.9 Headache, unspecified; M54.6 Pain in thoracic spine; I10 Essential (primary) hypertension; E11.9 Type 2 diabetes mellitus without complications; Z79.84 Long term (current) use of oral hypoglycemic drugs; F17.210 Nicotine dependence, cigarettes, uncomplicated
CPT/HCPCS: 36415; 80048; 83735; 85025; 93005; 96361; 96374; 96376; 99283

== ENCOUNTER 2020-11-01 17:23 | Outpatient (CLI) | payer MEDICARE, MEDICAID | END 2020-11-01 17:24 | disposition critical access hospital (66) | LOC: EMS 17:23 | PROVIDERS: ATTEND Emergency Medicine | DX: K92.1 Melena (principal); M54.6 Pain in thoracic spine | CPT/HCPCS: A0425; A0429 ==

== ENCOUNTER 2020-11-01 17:43 | Emergency (ER) | payer MEDICARE, MEDICAID ==
[2020-11-01] MEDS ORDERED: PANTOPRAZOLE 40 MG VIAL IVP STA (17:46)
[2020-11-01] MEDS ORDERED: SODIUM CHLORIDE 0.9% 1,000 ML IV STA (17:46)
[2020-11-01] MEDS ORDERED: MORPHINE 2 MG/ML CARPUJECT IVP STA (17:47)
--- NOTE | 2020-11-01 17:48 | ED Physician Documentation ---
PD HPI GI BLEED - Stated complaint Stated Complaint: BLOODY STOOL - History obtained from History obtained from: Patient - Additional information Additional information: 50-year-old woman with a history of ulcers and esophagitis presents with dark stools since yesterday associated with some mid and upper back pain. No abdominal pain. No vomiting. Chart review shows that she had a upper endoscopy about 2 years ago demonstrating esophagitis. She is on omeprazole. She denies chest pain. She is feeling a little weak and dizzy with this. She is not taking any NSAIDs. She does not drink alcohol. Review of Systems Ten Systems: 10 systems reviewed and negative Constitutional: reports: Fatigue. 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 SUPERINTENDENT: None : None HEENT: Chronic vision loss Psych: Depression, Anxiety, Bipolar disorder, Schizophrenia, Panic attacks, Claustrophobia Musculoskeletal: Chronic back pain Derm: None - Past Surgical History Past Surgical History: Yes General: Appendectomy Ortho: Spine surgery, Other /GOLF SUPERINTENDENT: Tubal ligation, 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 - Present Medications Home Medications: Ambulatory Orders Medication Instructions Recorded Confirmed QUEtiapine [SEROquel] 450 mg ORAL QPM 09/09/15 11/01/20 Ziprasidone HCl 80 mg ORAL QPM 09/09/15 11/01/20 Albuterol Sulfate [Proair Hfa 8.5 gm IH QID #1 hfa.aer.ad 09/20/15 11/01/20 Inhaler] Trazodone HCl 3 tab PO DAILY PM 09/13/17 11/01/20 Gabapentin 600 mg PO BID 01/07/19 11/01/20 Metformin HCl 500 mg PO DAILY 01/07/19 11/01/20 Topiramate 25 mg PO BID 01/07/19 11/01/20 Prazosin [Minipress] 2 mg PO DAILY 02/05/19 11/01/20 Sertraline HCl 150 mg PO DAILY 02/05/19 11/01/20 Potassium Chloride 1 tab DAILY 11/24/19 11/01/20 Aspirin [Aspirin EC] 81 mg PO DAILY 11/01/20 11/01/20 Atorvastatin [Lipitor] 40 mg PO DAILY 11/01/20 11/01/20 Cetirizine [ZyrTEC] 10 mg PO DAILY 11/01/20 11/01/20 Estradiol [Estrace] 0.5 mg PO DAILY 11/01/20 11/01/20 Furosemide [Lasix] 40 mg PO DAILY 11/01/20 11/01/20 Omeprazole 20 mg PO DAILY 11/01/20 11/01/20 Pantoprazole [Protonix] 20 mg PO DAILY 11/01/20 11/01/20 - Allergies Allergies/Adverse Reactions: Allergies Allergy/AdvReac Type Severity Reaction Status Date / Time amoxicillin [Amoxicillin] Allergy Intermediate Emesis Verified 11/01/20 18:20 aspartame Allergy Unknown Verified 11/01/20 18:20 chocolate flavor Allergy Unknown Verified 11/01/20 18:20 NSAIDS (Non-Steroidal Allergy Unknown Verified 11/01/20 18:20 Anti-Inflamma Penicillins Allergy Unknown Verified 11/01/20 18:20 wheat Allergy Unknown Verified 11/01/20 18:20 naproxen [From Naprosyn] AdvReac Intermediate Hives Verified 11/01/20 18:20 hydrocodone bitartrate * AdvReac Emesis Verified 11/01/20 18:20 [From Vicodin] lactase [From Dairy Aid] AdvReac Unknown Verified 11/01/20 18:20 - Social History Does the pt smoke?: Yes Smoking Status: Current every day smoker Does the pt drink ETOH?: No Does the pt have substance abuse?: No - Immunizations Immunizations are current?: Yes - POLST Patient has POLST: No PD ED PE NORMAL - Vitals Vital signs reviewed: Yes - General General: Alert and oriented X 3, No acute distress - HEENT HEENT: PERRL, EOMI - Neck Neck: Supple, no meningeal sign, No bony TTP - Cardiac Cardiac: RRR, No murmur - Respiratory Respiratory: No respiratory distress, Clear bilaterally - Abdomen Abdomen: Normal bowel sounds, Soft, Non tender - Back Back: No CVA TTP, No spinal TTP - Derm Derm: Normal color, Warm and dry, No rash - Neuro Neuro: Alert and oriented X 3, Normal speech Results - Vitals Vitals: Vital Signs - 24 hr 11/01/20 18:15 Temperature 36.3 C L Heart Rate 67 Respiratory 16 Rate Blood Pressure 115/76 Oxygen O2 Source Room air - EKG (time done) 1747 Rate: Rate (enter#) (72) Rhythm: NSR [place]: RAD Intervals: Normal SD QRS: Normal Ischemia: Normal ST segments - Labs Labs: Microbiology 11/01/20 18:45 Occult Blood - Final Stool Laboratory Tests 11/01/20 11/01/20 11/01/20 18:00 18:00 18:00 WBC 11.1 H RBC 4.55 Hgb 12.5 Hct 40.1 MCV 88.1 MCH 27.5 MCHC 31.2 L RDW 20.4 H Plt Count 416 MPV 8.9 Neut # (Auto) 7.4 H Lymph # (Auto) 2.8 [place] # (Auto) 0.6 Eos # (Auto) 0.2 Baso # (Auto) 0.1 Absolute Nucleated RBC 0.00 Nucleated RBC % 0.0 Manual Slide Review Indicated Platelet Estimate NORMAL (130-450,000) Platelet Morphology NORMAL APPEARANCE RBC Morph Micro Appear 1+ SCHISTOCYTES PT 12.6 INR 1.1 Sodium Potassium Chloride Carbon Dioxide Anion Gap BUN Creatinine Estimated GFR (MDRD) Glucose Calcium Magnesium Total Bilirubin AST ALT Alkaline Phosphatase Total Protein Albumin Globulin Albumin/Globulin Ratio Lipase Ethyl Alcohol Blood Type O POSITIVE Antibody Screen NEGATIVE 11/01/20 18:00 WBC RBC Hgb Hct MCV MCH MCHC RDW Plt Count MPV Neut # (Auto) Lymph # (Auto) [place] # (Auto) Eos # (Auto) Baso # (Auto) Absolute Nucleated RBC Nucleated RBC % Manual Slide Review Platelet Estimate Platelet Morphology RBC Morph Micro Appear PT INR Sodium 137 Potassium 3.3 L Chloride 103 Carbon Dioxide 22 Anion Gap 12.0 BUN 8 Creatinine 1.1 H Estimated GFR (MDRD) 52 L Glucose 88 Calcium 9.1 Magnesium 2.3 Total Bilirubin 0.5 AST 19 ALT 19 Alkaline Phosphatase 90 Total Protein 8.2 Albumin 4.4 Globulin 3.8 Albumin/Globulin Ratio 1.2 Lipase 87 H Ethyl Alcohol < 5.0 Blood Type Antibody Screen PD MEDICAL DECISION MAKING - ED course ED course: 50-year-old woman presents for evaluation of suspected GI bleed with potential melena. Her H&H and hemodynamics were very good and she provided a stool sample that was guaiac negative. Departure - Departure Disposition: 01 Home, Self Care Clinical Impression: Dark stools Back pain Qualifiers: Back pain location: thoracic back pain Chronicity: chronic Back pain lat erality: midline Qualified Code(s): M54.6 - Pain in thoracic spine; G89.29 - Other chronic pain Condition: Stable Record reviewed to determine appropriate education?: Yes Instructions: ED Neck Back Pain General Comments: Not sure what the cause of your dark stools was, but thankfully there is no evidence that it was blood as documented by lack of blood in your stool today and normal blood counts. Return for new or worsening symptoms. Follow-up with your primary care physician, next available appointment.
[2020-11-01 18:26] LABS: BASOPHILS # (AUTO) 0.1 10^3/uL (0.0-0.1); BASOPHILS % (AUTO) 0.8 %; EOSINOPHILS # (AUTO) 0.2 10^3/uL (0.0-0.7); EOSINOPHILS % (AUTO) 1.7 %; HGB - HEMOGLOBIN 12.5 g/dL (12.0-16.0); LYMPHOCYTES # (AUTO) 2.8 10^3/uL (1.5-3.5); LYMPHOCYTES % (AUTO) 25.2 %; MEAN CORPUSCULAR HEMOGLOBIN 27.5 pg (27.0-31.0); MEAN CORPUSCULAR HGB CONC 31.2 g/dL (32.0-36.0); MEAN CORPUSCULAR VOLUME 88.1 fL (81.0-99.0); MEAN PLATELET VOLUME 8.9 fL (7.9-10.8); MONOCYTES # (AUTO) 0.6 10^3/uL (0.0-1.0); MONOCYTES % (AUTO) 5.4 %; NEUTROPHILS # (AUTO) 7.4 10^3/uL (1.5-6.6); NEUTROPHILS % (AUTO) 66.5 %; PLT - PLATELET COUNT 416 10^3/uL (130-450); RED BLOOD COUNT 4.55 10^6/uL (4.20-5.40); RED CELL DISTRIBUTION WIDTH 20.4 % (12.0-15.0); WHITE BLOOD COUNT 11.1 x10^3/uL (4.8-10.8)
[2020-11-01 18:32] LABS: INR 1.1 (0.8-1.2); PT - PROTHROMBIN TIME 12.6 secs (9.9-12.6)
[2020-11-01 18:40] LABS: ALBUMIN 4.4 g/dL (3.2-5.5); ALBUMIN/GLOBULIN RATIO 1.2 (1.0-2.2); ALKALINE PHOSPHATASE 90 IU/L (42-121); ALT ALANINE AMINOTRANSFERASE 19 IU/L (10-60); AST ASPARTATE AMINOTRANSFERASE 19 IU/L (10-42); BILIRUBIN,TOTAL 0.5 mg/dL (0.2-1.0); BUN - BLOOD UREA NITROGEN 8 mg/dL (6-20); CALCIUM 9.1 mg/dL (8.5-10.3); CARBON DIOXIDE - CO2 22 mmol/L (21-32); CHLORIDE 103 mmol/L (101-111); CREATININE 1.1 mg/dL (0.4-1.0); GLUCOSE 88 mg/dL (70-100); LIPASE 87 U/L (22-51); MAGNESIUM 2.3 mg/dL (1.7-2.8); TOTAL PROTEIN 8.2 g/dL (6.7-8.2)
[2020-11-01 18:49] LABS: PLATELET ESTIMATE, MANUAL NORMAL (130-450,000) (NORMAL); PLATELET MORPHOLOGY NORMAL APPEARANCE (NORMAL)
[2020-11-01 19:55] VITALS: BP 146/87
== END 2020-11-01 19:59 | disposition home or self-care (01) ==
LOC: EDUNIT# → ED 17:43
DX: R19.5 Other fecal abnormalities (principal); M54.6 Pain in thoracic spine; G89.29 Other chronic pain; Z87.11 Personal history of peptic ulcer disease; I10 Essential (primary) hypertension; E11.9 Type 2 diabetes mellitus without complications; Z79.84 Long term (current) use of oral hypoglycemic drugs; Z79.82 Long term (current) use of aspirin; F17.200 Nicotine dependence, unspecified, uncomplicated
CPT/HCPCS: 36415; 80053; 82272; 83690; 83735; 85025; 85610; 86850; 86900; 86901; 93005; 96374; 96375; 99283; 99284; G0480; 80320

== ENCOUNTER 2020-11-04 08:00 | Outpatient (CLI) | payer MEDICARE, MEDICAID ==
--- NOTE | 2020-11-04 11:28 | XRAY Report ---
PROCEDURE: Chest 2 View X-Ray INDICATIONS: ACUTE BRONCHITIS TECHNIQUE: 2 view(s) of the chest. COMPARISON: None. FINDINGS: Surgical changes and devices: Spinal electrodes incidentally noted. Lungs and pleura: No pleural effusions or pneumothorax. Scattered subsegmental scarring/atelectasis . No acute consolidation. There is diffuse airway thickening, slightly progressed since 10/12/2020 . Mediastinum: Mediastinal contours are normal. Heart size is normal. Bones and chest wall: No suspicious bony abnormalities. Soft tissues appear unremarkable. IMPRESSION: Diffuse airway thickening and ill-defined perihilar groundglass opacity suggesting nonspecific bronch itis and/or reactive airways disease, which appears new/progressed since 10/12/2020. A mild underlying atypical/viral pneumonia cannot be excluded. If there is persistent clinical diagnostic uncertainty, recommend short interval follow-up chest radiographs after treatment for further assessment. Reviewed by: Yonatan Wilson MD on 11/04/2020 11:27 AM PST Approved by: Yonatan Wilson MD on 11/04/2020 11:27 AM PST Station ID: [id number]
== END 2020-11-04 23:59 | disposition home or self-care (01) ==
LOC: DI.N 08:00
PROVIDERS: ATTEND Physician Assistant Medical
DX: J20.9 Acute bronchitis, unspecified (principal); R19.7 Diarrhea, unspecified; Z20.822 Contact with and (suspected) exposure to COVID-19
CPT/HCPCS: 71046; U0004

== ENCOUNTER 2020-12-10 10:28 | Outpatient (CLI) | payer MEDICARE, MEDICAID ==
--- NOTE | 2020-12-10 16:23 | XRAY Report ---
PROCEDURE: Knee Standing RT INDICATIONS: RIGHT KNEE PAIN TECHNIQUE: 3 views of the right knee, COMPARISON: X-ray right knee 05/15/2019 FINDINGS: Bones: No acute fractures or dislocations. No suspicious bony lesions. There is moderate medial and mild patellofemoral compartment narrowing. No erosions and very minimal periarticular osteophytes. N o interval progression. Soft tissues: Mild knee joint effusion. No suspicious soft tissue calcification. IMPRESSION: Moderate medial and mild patellofemoral compartment narrowing consistent with arthritis, stable. Reviewed by: Rachael Hardwick MD on 12/10/2020 4:22 PM PDT Approved by: Rachael Hardwick MD on 12/10/2020 4:22 PM PDT Station ID: [id number]
== END 2020-12-10 10:29 | disposition home or self-care (01) ==
LOC: DI.N 10:28
PROVIDERS: ATTEND Registered Nurse
DX: M25.561 Pain in right knee (principal); M17.11 Unilateral primary osteoarthritis, right knee

== ENCOUNTER 2020-12-14 13:37 | Outpatient (CLI) | payer MEDICARE, MEDICAID ==
--- NOTE | 2020-12-14 14:42 | SLEEP CARE CONSULTATION ---
Information from patient questionnaire entered by Priscilla Hawkins. I have reviewed and concur with the information entered by Priscilla Hawkins. This document represents the service I personally performed and the decisions made by me, Kali Taveras MD, [facility]. History of Present Illness Service Date and Time: 12/14/2020 1337 Previous diagnosis: Mild, Obstructive Sleep Apnea-Hypopnea Syndrome AHI: 5.1 (in 2019) Equipment type: CPAP Equipment obtained from: [facility] Mask style: Nasal pillows Prior sleep studies: Yes Year and Where: 2018 [facility] HPI additional information: HPI: Ms. Constantino returned today for follow up of nasal CPAP therapy. She was diagnosed to have mild obstructive sleep apnea-hypopnea syndrome. The patient went to [facility] in [place] for the equipment and was fitted with a nasal mask. She reports using the device nightly and all through the night. The compliance report shows usage in 99 nights out of the past 180 nights, averaging 3.1 hours a night. She complained of no particular problem with the device such as soreness on the face, dry nose, epistaxis, nasal congestion or headache. She thinks that the pressure of 5 - 10 cmH2O is comfortable. On the CPAP therapy she notices improvement in her sleep quality, and that she wakes up feeling fresher in the morning and more awake/alert during the day. The [place] Sleepiness Scale score 18. Her notices no snore at all. The average re sidual AHI is 3.3; and average time in large leak per day is 41 seconds. The 90th percentile pressure is 7.1 cmH2O. Subjective Patient concerns: reports: nasal congestion, dry mouth, nose, throat, epistaxis, other (snore while using device) Initial [place] Sleepiness Scale score: 12 (in 2009) Current [place] Sleepiness Scale score: 18 Allergies and Home Medications Drug allergies reviewed: Yes Home medication list reviewed: Yes Review of Systems Review of systems same as previous: Yes Physical Exam Height: 5 ft 2 in Weight: 202 lb Body Mass Index: 36.9 BMI Classification: Obese Impression and Plan IMPRESSION: 1. Obstructive Sleep Apnea-Hypopnea Syndrome, mild (5.1) with the patient not using her CPAP much due to discomfort. Because she feels like the CPAP is not giving her enough air, I will raise the pressure range to 7 12 cmH2 O. I will also order her a new mask to replace the nasal pillows that hurt her nostrils. Because her sleep-disordered breathing is very mild, I gave her the option of discontinuing the CPAP therapy if she finds it to cumbersome. Her excessive daytime sleepiness could be from all her psychiatric meds with sedating side effectSeroquel, trazodone, ziprasidone, gabapentin, and sertraline. PLAN: 1. Prescription made to raise the pressure range to 7 - 12 cmH2O. 2. Try to lose weight 3. Try a Respironics DreamWear nasal cushion mask or ResMed N30i mask. 4. Return in one year for follow up or earlier if there is any problem with the treatment. Follow up recommended for: Weight management Visit Type: In Office Time Spent with Patient (minutes): 15 Provider Statement: I spent 100% of the Face to Face Visit with the patient with greater than 50% spent counseling the patient and coordination of care.
== END 2020-12-14 13:38 | disposition home or self-care (01) ==
LOC: SC 13:37
PROVIDERS: ATTEND Internal Medicine Pulmonary Disease
DX: G47.33 Obstructive sleep apnea (adult) (pediatric) (principal); E66.9 Obesity, unspecified; Z68.36 Body mass index [BMI] 36.0-36.9, adult
CPT/HCPCS: 99212; G0463

== ENCOUNTER 2021-01-14 08:00 | Outpatient (CLI) | payer MEDICARE, MEDICAID ==
[2021-01-14 12:32] LABS: BASOPHILS # (AUTO) 0.1 10^3/uL (0.0-0.1); BASOPHILS % (AUTO) 0.7 %; EOSINOPHILS # (AUTO) 0.2 10^3/uL (0.0-0.7); EOSINOPHILS % (AUTO) 1.7 %; HCT - HEMATOCRIT 43.9 % (37.0-47.0); HGB - HEMOGLOBIN 13.2 g/dL (12.0-16.0); LYMPHOCYTES # (AUTO) 3.1 10^3/uL (1.5-3.5); LYMPHOCYTES % (AUTO) 26.8 %; MEAN CORPUSCULAR HEMOGLOBIN 26.3 pg (27.0-31.0); MEAN CORPUSCULAR HGB CONC 30.1 g/dL (32.0-36.0); MEAN CORPUSCULAR VOLUME 87.6 fL (81.0-99.0); MEAN PLATELET VOLUME 9.7 fL (7.9-10.8); MONOCYTES # (AUTO) 0.6 10^3/uL (0.0-1.0); MONOCYTES % (AUTO) 4.8 %; NEUTROPHILS # (AUTO) 7.7 10^3/uL (1.5-6.6); NEUTROPHILS % (AUTO) 65.6 %; PLT - PLATELET COUNT 368 10^3/uL (130-450); RED BLOOD COUNT 5.01 10^6/uL (4.20-5.40); RED CELL DISTRIBUTION WIDTH 20.2 % (12.0-15.0); WHITE BLOOD COUNT 11.7 x10^3/uL (4.8-10.8)
[2021-01-14 12:38] LABS: SLIDE REVIEW? Indicated
[2021-01-14 13:05] LABS: THYROID STIMULATING HORMONE 2.3 uIU/mL (0.34-5.60)
[2021-01-14 13:06] LABS: FREE T3 2.92 pg/mL (2.5-3.9)
[2021-01-14 13:07] LABS: FREE T4 (FREE THYROXINE) 0.76 ng/dL (0.58-1.64)
[2021-01-14 13:15] LABS: CHOL/HDL RATIO 4.2 (<4.4); CHOLESTEROL 121 mg/dL; HDL CHOLESTEROL 29 mg/dL; LDL CHOLESTEROL,CALCULATED 61 mg/dL; LDL/HDL RATIO 2.1 (<4.4); TRIGLYCERIDES 153 mg/dL; VLDL CHOLESTEROL 31 mg/dL
[2021-01-14 13:16] LABS: PLATELET ESTIMATE, MANUAL NORMAL (130-450,000) (NORMAL); PLATELET MORPHOLOGY NORMAL APPEARANCE (NORMAL); RBC MORPHOLOGY (MULTIPLE) 1+ ANISOCYTOSIS (NORMAL); WBC MORPHOLOGY (MULTIPLE) NORMAL APPEARANCE (NORMAL)
[2021-01-14 13:17] LABS: ESTIMATED AVERAGE GLUCOSE 128 mg/dL (70-100); HEMOGLOBIN A1c% 6.1 % (4.27-6.07)
== END 2021-01-14 23:59 | disposition home or self-care (01) ==
LOC: LAB.WCP 08:00
PROVIDERS: ATTEND Family Medicine
DX: K27.9 Peptic ulcer, site unspecified, unspecified as acute or chronic, without hemorrhage or perforation (principal); E87.6 Hypokalemia; E11.22 Type 2 diabetes mellitus with diabetic chronic kidney disease; N18.2 Chronic kidney disease, stage 2 (mild); F51.04 Psychophysiologic insomnia; K21.9 Gastro-esophageal reflux disease without esophagitis; M79.7 Fibromyalgia; Z72.0 Tobacco use
CPT/HCPCS: 36415; 80061; 83036; 83721; 84439; 84443; 84481; 85025

== ENCOUNTER 2021-01-20 09:21 | Outpatient (CLI) | payer MEDICARE, MEDICAID ==
[2021-01-20 11:39] LABS: HCT - HEMATOCRIT 41.1 % (37.0-47.0); HGB - HEMOGLOBIN 12.5 g/dL (12.0-16.0); MEAN CORPUSCULAR HEMOGLOBIN 26.5 pg (27.0-31.0); MEAN CORPUSCULAR HGB CONC 30.4 g/dL (32.0-36.0); MEAN CORPUSCULAR VOLUME 87.1 fL (81.0-99.0); MEAN PLATELET VOLUME 9.9 fL (7.9-10.8); RED BLOOD COUNT 4.72 10^6/uL (4.20-5.40); RED CELL DISTRIBUTION WIDTH 20.1 % (12.0-15.0); WHITE BLOOD COUNT 13.6 x10^3/uL (4.8-10.8)
[2021-01-20 11:45] LABS: CALCIUM 8.9 mg/dL (8.5-10.3); POTASSIUM 3.8 mmol/L (3.5-5.0)
== END 2021-01-20 09:22 | disposition home or self-care (01) ==
LOC: LAB.N 09:21
PROVIDERS: ATTEND Family Medicine
DX: J44.0 Chronic obstructive pulmonary disease with (acute) lower respiratory infection (principal); J20.9 Acute bronchitis, unspecified
CPT/HCPCS: 36415; 80048; 85027

== ENCOUNTER 2021-01-20 09:27 | Outpatient (CLI) | payer MEDICARE, MEDICAID ==
--- NOTE | 2021-01-20 10:33 | XRAY Report ---
PROCEDURE: Chest 2 View X-Ray INDICATIONS: BRONCHITIS, COPD TECHNIQUE: 2 view(s) of the chest. COMPARISON: 09/15/2018, 11/04/2020. FINDINGS: Surgical changes and devices: None. Lungs and pleura: No pleural effusions or pneumothorax. There are widespread diffuse upper and lower lobe ill-defined and groundglass opacities. No definite focal consolidation. These appear grossly un changed. Mediastinum: Mediastinal contours are normal. Heart size is normal. Bones and chest wall: No suspicious bony abnormalities. Soft tissues appear unremarkable. IMPRESSION: Bilateral ill-defined and groundglass hazy opacities, grossly unchanged. This suggests chronic inters titial disease although it would be difficult to exclude a low-grade bronchopneumonia or early pulmon judy edema in this setting. Please correlate clinically. No focal consolidation Reviewed by: Yonatan Wilson MD on 01/20/2021 10:32 AM PDT Approved by: Yonatan Wilson MD on 01/20/2021 10:32 AM PDT Station ID: [id number]
== END 2021-01-20 09:28 | disposition home or self-care (01) ==
LOC: DI.N 09:27
PROVIDERS: ATTEND Family Medicine
DX: J44.9 Chronic obstructive pulmonary disease, unspecified (principal); J20.9 Acute bronchitis, unspecified
CPT/HCPCS: 36415; 80048; 85027

== ENCOUNTER 2021-01-27 10:34 | Outpatient (CLI) | payer MEDICARE, MEDICAID ==
--- NOTE | 2021-01-27 11:55 | CT Report ---
PROCEDURE: CHEST WO INDICATIONS: INTERSTITIAL EMPHYSEMA TECHNIQUE: Noncontrast 5 mm thick sections acquired from the pulmonary apices to the posterior costophrenic angl es. 7 mm thick coronal and sagittal MIP reformats were then acquired. For radiation dose reduction, the following was used: automated exposure control, adjustment of mA and/or kV according to patient size. COMPARISON: CT dated 12/19/2013. Chest x-ray dated 01/20/2021. FINDINGS: Image quality: Excellent. Lungs and pleura: There is a mild degree of bilateral diffuse groundglass pulmonary opacity. No pleur al effusions or pneumothorax. Central and peripheral airways are patent and normal in caliber. Scat tered mild subsegmental regions of bronchial wall thickening are present. Mediastinum: Heart size is normal. No pericardial effusion. No mediastinal adenopathy by size crit eria. Thoracic aorta and central pulmonary arteries are normal in size. Esophagus is normal in cyd[place] larry. No hiatal hernia. Bones and chest wall: No suspicious bony lesions. No vertebral body compression fractures. No axil rebeca or supraclavicular adenopathy by size criteria. The thyroid is normal in size. There is a 19 mm diameter right thyroid nodule. Abdomen: Visualized upper abdominal solid organs and bowel loops appear normal in the absence of con trast. IMPRESSION: 1. Mild bilateral bronchopneumonia. 2. Right thyroid nodule. Thyroid ultrasound is recommended for further assessment. CLINICAL RECOMMENDATION STATEMENTS: In patients <35 years with an ITN detected on CT, MRI, or extrathyroidal ultrasound, the Committee re commends further evaluation with dedicated thyroid ultrasound if the nodule is ?1 cm and has no suspi cious imaging features, and if the patient has normal life expectancy. In patients ?35 years with an ITN detected on CT, MRI, or extrathyroidal ultrasound, the Committee re commends further evaluation with dedicated thyroid ultrasound if the nodule is ?1.5 cm and has no maegan picious imaging features, and if the patient has normal life expectancy. (ACR, 2014) Reviewed by: Niki Kennedy MD on 01/27/2021 11:54 AM PDT Approved by: Niki Kennedy MD on 01/27/2021 11:54 AM PDT Station ID: [id number]
== END 2021-01-27 10:35 | disposition home or self-care (01) ==
LOC: DI 10:34
PROVIDERS: ATTEND Family Medicine
DX: J18.0 Bronchopneumonia, unspecified organism (principal); E04.1 Nontoxic single thyroid nodule

== ENCOUNTER 2021-01-30 17:13 | Emergency (ER) | payer MEDICARE, MEDICAID ==
[2021-01-30 17:25] VITALS: BP 109/73
[2021-01-30] MEDS ORDERED: DOXYCYCLINE 100 MG TABLET PO STA (17:35)
[2021-01-30] MEDS ORDERED: predniSONE 20 MG TABLET PO STA (17:35)
--- NOTE | 2021-01-30 17:38 | ED Physician Documentation ---
History of Present Illness - Stated complaint Stated Complaint: HEAVY BREATHING/HEADACHE/COUGH - Chief complaint Chief Complaint: Resp - History obtained from History obtained from: Patient - Additonal information Additional information: 50-year-old woman with COPD continues to smoke and has had a productive cough with slight shortness of breath for the last 2 weeks. No fevers. Review of Systems Constitutional: denies: Fever, Chills Nose: reports: Reviewed and negative Throat: reports: Reviewed and negative PD PAST MEDICAL HISTORY - Past Medical History Past Medical History: Yes Cardiovascular: Hypertension Respiratory: Asthma Neuro: Migraines Endocrine/Autoimmune: Type 2 diabetes GI: Chronic diarrhea ALTERATION WORKER: None : None HEENT: Chronic vision loss Psych: Depression, Anxiety, Bipolar disorder, Schizophrenia, Panic attacks, Claustrophobia Musculoskeletal: Chronic back pain Derm: None - Past Surgical History Past Surgical History: Yes General: Appendectomy Ortho: Spine surgery, Other /ALTERATION WORKER: Tubal ligation, 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 - Present Medications Home Medications: Ambulatory Orders Medication Instructions Recorded Confirmed QUEtiapine [SEROquel] 450 mg ORAL QPM 09/09/15 11/01/20 Ziprasidone HCl 80 mg ORAL QPM 09/09/15 11/01/20 Albuterol Sulfate [Proair Hfa 8.5 gm IH QID #1 hfa.aer.ad 09/20/15 11/01/20 Inhaler] Trazodone HCl 3 tab PO DAILY PM 09/13/17 11/01/20 Gabapentin 600 mg PO BID 01/07/19 11/01/20 Metformin HCl 500 mg PO DAILY 01/07/19 11/01/20 Topiramate 25 mg PO BID 01/07/19 11/01/20 Prazosin [Minipress] 2 mg PO DAILY 02/05/19 11/01/20 Sertraline HCl 150 mg PO DAILY 02/05/19 11/01/20 Potassium Chloride 1 tab DAILY 11/24/19 11/01/20 Aspirin [Aspirin EC] 81 mg PO DAILY 11/01/20 11/01/20 Atorvastatin [Lipitor] 40 mg PO DAILY 11/01/20 11/01/20 Cetirizine [ZyrTEC] 10 mg PO DAILY 11/01/20 11/01/20 Estradiol [Estrace] 0.5 mg PO DAILY 11/01/20 11/01/20 Furosemide [Lasix] 40 mg PO DAILY 11/01/20 11/01/20 Omeprazole 20 mg PO DAILY 11/01/20 11/01/20 Pantoprazole [Protonix] 20 mg PO DAILY 11/01/20 11/01/20 Doxycycline Hyclate 100 mg PO BID #14 01/30/21 Varenicline Tartrate [Chantix] 0.5 mg PO DAILY #11 tablet 01/30/21 Varenicline Tartrate [Chantix] 1 each PO BID #77 01/30/21 predniSONE [Deltasone] 20 mg PO [id number] #21 tab 01/30/21 - Allergies Allergies/Adverse Reactions: Allergies Allergy/AdvReac Type Severity Reaction Status Date / Time amoxicillin [Amoxicillin] Allergy Intermediate Emesis Verified 01/30/21 17:25 aspartame Allergy Unknown Verified 01/30/21 17:25 chocolate flavor Allergy Unknown Verified 01/30/21 17:25 NSAIDS (Non-Steroidal Allergy Unknown Verified 01/30/21 17:25 Anti-Inflamma Penicillins Allergy Unknown Verified 01/30/21 17:25 wheat Allergy Unknown Verified 01/30/21 17:25 naproxen [From Naprosyn] AdvReac Intermediate Hives Verified 01/30/21 17:25 hydrocodone bitartrate * AdvReac Emesis Verified 01/30/21 17:25 [From Vicodin] lactase [From Dairy Aid] AdvReac Unknown Verified 01/30/21 17:25 - Social History Does the pt smoke?: Yes Smoking Status: Current every day smoker Does the pt drink ETOH?: No Does the pt have substance abuse?: No - Immunizations Immunizations are current?: Yes - POLST Patient has POLST: No PD ED PE NORMAL - Vitals Vital signs reviewed: Yes - General General: Alert and oriented X 3, No acute distress - Cardiac Cardiac: RRR, No murmur - Respiratory Respiratory: No respiratory distress, Other (Nonlabored, mild diffuse expiratory wheezing, no other focal findings.) - Neuro Neuro: Alert and oriented X 3, Normal speech Results - Vitals Vitals: Vital Signs - 24 hr 01/30/21 01/30/21 17:22 17:28 Temperature 36.4 C L 36.6 C Heart Rate 87 87 Respiratory 16 16 Rate Blood Pressure 109/73 109/73 O2 Saturation 96 96 Oxygen O2 Source Room air PD MEDICAL DECISION MAKING - ED course ED course: 50-year-old woman with tobacco abuse presents with COPD flare which she is treated for with steroids and antibiotics. She would like to retry Chantix, has tried it in the past without ill effect although failure quitting smoking. Departure - Departure Disposition: 01 Home, Self Care Clinical Impression: COPD exacerbation Condition: Good Record reviewed to determine appropriate education?: Yes Instructions: COPD Dc Prescriptions: Varenicline Tartrate [Chantix] 0.5 mg PO DAILY #11 tablet Varenicline Tartrate [Chantix] 1 each PO BID #77 predniSONE [Deltasone] 20 mg PO [id number] #21 tab Doxycycline Hyclate 100 mg PO BID #14 Comments: For the Chantix, choose a quit date, then start the Chantix 8 days prior to the quit date. It is imperative to quit smoking. Return for new or worsening symptoms. Follow-up with your doctor in a week for recheck.
== END 2021-01-30 17:40 | disposition home or self-care (01) ==
LOC: ED 17:13
DX: J44.1 Chronic obstructive pulmonary disease with (acute) exacerbation (principal); F17.200 Nicotine dependence, unspecified, uncomplicated; I10 Essential (primary) hypertension; E11.9 Type 2 diabetes mellitus without complications
CPT/HCPCS: 99283; 99284; A9270; J7512

== ENCOUNTER 2021-03-25 10:30 | Outpatient (CLI) | payer MEDICARE, MEDICAID ==
[2021-03-25 21:27] LABS: CHLAMYDIA TRACHOMATIS DNA NEGATIVE (NEGATIVE); NEISSERIA GONORRHOEAE DNA NEGATIVE (NEGATIVE); TRICHOMONAS VAGINALIS DNA NEGATIVE (NEGATIVE)
[2021-03-25 22:18] LABS: BACTERIAL VAGINOSIS DNA NEGATIVE (NEGATIVE); CANDIDA GLABRATA DNA NEGATIVE (NEGATIVE); CANDIDA GROUP DNA NEGATIVE (NEGATIVE); CANDIDA KRUSEI DNA NEGATIVE (NEGATIVE); TRICHOMONAS VAGINALIS DNA NEGATIVE (NEGATIVE)
== END 2021-03-25 23:59 | disposition home or self-care (01) ==
LOC: LAB.WCP 10:30
PROVIDERS: ATTEND Family Medicine
DX: R10.2 Pelvic and perineal pain (principal)
CPT/HCPCS: 87491; 87591; 87661; 87801

== ENCOUNTER 2021-03-29 11:39 | Outpatient (CLI) | payer MEDICARE, MEDICAID ==
--- NOTE | 2021-03-29 12:23 | SLEEP CARE CONSULTATION ---
Information from patient questionnaire entered by Kayy Del Angel. I have reviewed and concur with the information entered by Kayy Del Angel. This document represents the service I personally performed and the decisions made by me, Kali Taveras MD, [facility]. History of Present Illness Service Date and Time: 03/29/2021 1139 Previous diagnosis: Mild, Obstructive Sleep Apnea-Hypopnea Syndrome AHI: 5.1 (in 2018) Reason for follow up: three month (oxygen compliance, not using CPAP) Equipment type: CPAP Equipment obtained from: [facility] Mask style: Nasal pillows Prior sleep studies: Yes Year and Where: 2019 - [facility] Sleep HPI additional information: HPI: Ms. Constantino returned today for follow up of nasal CPAP therapy. She was diagnosed to have mild obstructive sleep apnea-hypopnea syndrome. The patient went to [facility] in [place] for the equipment and was fitted with a nasal mask. She quit using the device over a month ago. She complained that the pressure was too little and a in December I raised it from 5 10 cmH2O to 7 12 cmH2O. She did not notice any benefit the few nights she used it. Her main complaint was excessive daytime sleepiness which has since resolved. [place] Sleepiness Scale score is only 3 (was 18 in December). She said her medications were adjusted and she lost some weight. She continues to use oxygen at night. Subjective Patient concerns: reports: dry mouth, nose, throat Initial [place] Sleepiness Scale score: 12 (in 2009) Current [place] Sleepiness Scale score: 3 Allergies and Home Medications Drug allergies reviewed: Yes Home medication list reviewed: Yes Review of Systems Review of systems same as previous: Yes Physical Exam Height: 5 ft 2 in Weight: 195 lb Body Mass Index: 35.6 BMI Classification: Obese Impression and Plan IMPRESSION: 1. Obstructive Sleep Apnea-Hypopnea Syndrome, very mild (5.1) with the patient not using her CPAP. She has lost some weight. I recommend returning the CPAP to [facility] in [place] to avoid having to pay for it herself as she has not been compliant with the treatment. 2. Hypersomnia, most likely due to her psychiatric meds which included Seroquel, trazodone, ziprasidone, gabapentin, and sertraline. The excessive daytime sleepiness has resolved with medication adjustment. PLAN: 1. Discontinue CPAP. 2. Avoid weight regain. 3. Continue with home oxygen at night. 4. Return for follow up on as needed basis. Follow up recommended for: Weight management Visit Type: In Office Time Spent with Patient (minutes): 15 Provider Statement: I spent 100% of the Face to Face Visit with the patient with greater than 50% spent counseling the patient and coordination of care.
== END 2021-03-29 11:40 | disposition home or self-care (01) ==
LOC: SC 11:39
PROVIDERS: ATTEND Internal Medicine Pulmonary Disease
DX: G47.33 Obstructive sleep apnea (adult) (pediatric) (principal); G47.10 Hypersomnia, unspecified; E66.9 Obesity, unspecified; Z68.35 Body mass index [BMI] 35.0-35.9, adult
CPT/HCPCS: 99212; G0463

== ENCOUNTER 2021-05-12 08:00 | Outpatient (CLI) | payer MEDICARE, MEDICAID ==
[2021-05-12 18:20] LABS: CALCIUM 9.7 mg/dL (8.5-10.3); CREATININE 1.2 mg/dL (0.4-1.0); POTASSIUM 4.7 mmol/L (3.5-5.0)
[2021-05-12 19:51] LABS: ESTIMATED AVERAGE GLUCOSE 126 mg/dL (70-100)
== END 2021-05-12 23:59 | disposition home or self-care (01) ==
LOC: LAB.WCP 08:00
PROVIDERS: ATTEND Family Medicine
DX: E11.9 Type 2 diabetes mellitus without complications (principal)
CPT/HCPCS: 36415; 80048; 83036

== ENCOUNTER 2021-05-21 17:09 | Outpatient (CLI) | payer MEDICARE, MEDICAID | END 2021-05-21 23:59 | disposition home or self-care (01) | LOC: LAB.N 17:09 | PROVIDERS: ATTEND Physician Assistant Medical | DX: B34.9 Viral infection, unspecified (principal); Z20.822 Contact with and (suspected) exposure to COVID-19 ==

== ENCOUNTER 2021-06-17 18:54 | Emergency (ER) | payer MEDICARE, MEDICAID ==
--- NOTE | 2021-06-17 19:44 | ED Physician Documentation ---
PD HPI URI - Stated complaint Stated Complaint: COUGH,CP,BACK PX - Chief complaint Chief Complaint: General - History obtained from History obtained from: Patient - History of Present Illness Timing - onset: How many days ago (several) Timing duration: Days (several) Timing details: Gradual onset, Still present Associated symptoms: Chills, Productive cough (clear sputum), Chest pain (hurts with coughing). No: Fever, Hemoptysis Contributing factors: COPD / asthma. No: Unimmunized (had vaccine months ago) Similar symptoms before: Has not had sx before Recently seen: Not recently seen Review of Systems Constitutional: reports: Chills, Fatigue. denies: Fever Nose: reports: Congestion. denies: Rhinorrhea / runny nose Throat: denies: Sore throat Cardiac: reports: Chest pain / pressure (with coughing). denies: Pedal edema, Calf pain Respiratory: reports: Dyspnea, Cough, Wheezing GI: denies: Abdominal Pain, Nausea, Vomiting, Diarrhea Skin: denies: Rash, Lesions Neurologic: denies: Altered mental status, Headache PD PAST MEDICAL HISTORY - Past Medical History Cardiovascular: Hypertension Respiratory: Asthma Neuro: Migraines Endocrine/Autoimmune: Type 2 diabetes GI: Chronic diarrhea BAGMAN/WOMAN: None : None HEENT: Chronic vision loss Psych: Depression, Anxiety, Bipolar disorder, Schizophrenia, Panic attacks, Claustrophobia Musculoskeletal: Chronic back pain Derm: None - Past Surgical History Past Surgical History: Yes General: Appendectomy Ortho: Spine surgery, Other /BAGMAN/WOMAN: Tubal ligation, 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 - Present Medications Home Medications: Ambulatory Orders Medication Instructions Recorded Confirmed QUEtiapine [SEROquel] 450 mg ORAL QPM 09/09/15 11/01/20 Ziprasidone HCl 80 mg ORAL QPM 09/09/15 11/01/20 Albuterol Sulfate [Proair Hfa 8.5 gm IH QID #1 hfa.aer.ad 09/20/15 11/01/20 Inhaler] Trazodone HCl 3 tab PO DAILY PM 09/13/17 11/01/20 Gabapentin 600 mg PO BID 01/07/19 11/01/20 Metformin HCl 500 mg PO DAILY 01/07/19 11/01/20 Topiramate 25 mg PO BID 01/07/19 11/01/20 Prazosin [Minipress] 2 mg PO DAILY 02/05/19 11/01/20 Sertraline HCl 150 mg PO DAILY 02/05/19 11/01/20 Potassium Chloride 1 tab DAILY 11/24/19 11/01/20 Aspirin [Aspirin EC] 81 mg PO DAILY 11/01/20 11/01/20 Atorvastatin [Lipitor] 40 mg PO DAILY 11/01/20 11/01/20 Cetirizine [ZyrTEC] 10 mg PO DAILY 11/01/20 11/01/20 Estradiol [Estrace] 0.5 mg PO DAILY 11/01/20 11/01/20 Furosemide [Lasix] 40 mg PO DAILY 11/01/20 11/01/20 Omeprazole 20 mg PO DAILY 11/01/20 11/01/20 Pantoprazole [Protonix] 20 mg PO DAILY 11/01/20 11/01/20 Doxycycline Hyclate 100 mg PO BID #14 01/30/21 Varenicline Tartrate [Chantix] 0.5 mg PO DAILY #11 tablet 01/30/21 Varenicline Tartrate [Chantix] 1 each PO BID #77 01/30/21 predniSONE [Deltasone] 20 mg PO [id number] #21 tab 01/30/21 Benzonatate [Tessalon] 100 mg PO TID PRN #20 cap 06/17/21 Doxycycline Hyclate 100 mg PO BID 5 Days #10 tab 06/17/21 dexAMETHasone [Decadron] 4 mg PO DAILY #5 tablet 06/17/21 - Allergies Allergies/Adverse Reactions: Allergies Allergy/AdvReac Type Severity Reaction Status Date / Time amoxicillin [Amoxicillin] Allergy Intermediate Emesis Verified 06/17/21 19:09 aspartame Allergy Unknown Verified 06/17/21 19:09 chocolate flavor Allergy Unknown Verified 06/17/21 19:09 NSAIDS (Non-Steroidal Allergy Unknown Verified 06/17/21 19:09 Anti-Inflamma Penicillins Allergy Unknown Verified 06/17/21 19:09 wheat Allergy Unknown Verified 06/17/21 19:09 naproxen [From Naprosyn] AdvReac Intermediate Hives Verified 06/17/21 19:09 hydrocodone bitartrate * AdvReac Emesis Verified 06/17/21 19:09 [From Vicodin] lactase [From Dairy Aid] AdvReac Unknown Verified 06/17/21 19:09 - Social History Does the pt smoke?: Yes Smoking Status: Current every day smoker Does the pt drink ETOH?: No Does the pt have substance abuse?: No - Immunizations Immunizations are current?: Yes - POLST Patient has POLST: No PD ED PE NORMAL - Vitals Vital signs reviewed: Yes - General General: Alert and oriented X 3, No acute distress, Well developed/nourished - HEENT HEENT: Pharynx benign - Neck Neck: Supple, no meningeal sign, No adenopathy - Cardiac Cardiac: RRR, No murmur - Respiratory Respiratory: No: Clear bilaterally (some exp wheezing. No accessory muscle use. ) - Abdomen Abdomen: Soft, Non tender - Derm Derm: Normal color, Warm and dry - Extremities Extremities: No edema, No calf tenderness / cord - Neuro Neuro: Alert and oriented X 3, No motor deficit, Normal speech Results - Vitals Vitals: Vital Signs - 24 hr 06/17/21 06/17/21 06/17/21 19:06 19:54 20:21 Temperature 37 C Heart Rate 86 79 93 Respiratory 18 15 19 Rate Blood Pressure 138/74 H 112/82 H O2 Saturation 97 06/17/21 21:21 Temperature Heart Rate 86 Respiratory 16 Rate Blood Pressure 112/85 H O2 Saturation 94 Oxygen O2 Source Room air - EKG (time done) 19:05 Rate: Rate (enter#) (76) Rhythm: NSR Callao: Normal Intervals: Normal AR QRS: Normal Ischemia: Normal ST segments. No: ST elevation c/w ischemia, ST depression - Rads (name of study) chest xray Radiology: Prelim report reviewed (no infiltrates), See rad report PD MEDICAL DECISION MAKING - ED course Complexity details: reviewed results, considered differential, d/w patient Departure - Departure Disposition: 01 Home, Self Care Clinical Impression: Upper respiratory infection Qualifiers: URI type: unspecified URI Qualified Code(s): J06.9 - Acute upper respiratory infection, unspecified Exacerbation of asthma Qualifiers: Asthma severity: mild Asthma persistence: intermittent Qualified Code(s): J45.21 - Mild intermittent asthma with (acute) exacerbation Condition: Stable Record reviewed to determine appropriate education?: Yes Follow-Up: Henrique Ortiz MD [Primary Care Provider] - Prescriptions: dexAMETHasone [Decadron] 4 mg PO DAILY #5 tablet Doxycycline Hyclate 100 mg PO BID 5 Days #10 tab Benzonatate [Tessalon] 100 mg PO TID PRN #20 cap PRN Reason: Cough Comments: It is clear without any signs of pneumonia. This sounds likely to be an upper respiratory infection. Your Covid test should result in the next day or 2. Hopefully more likely just a respiratory chest cold that will be for a few days. Continue your Albuterol inhaler 2 to 4 puffs 4 times a day for the next several days to week. Add Decadron steroid daily for the next 5 days and benzonatate if needed for cough. In the setting of your asthma/COPD, there can be some intri nsic germs that are exacerbating as well so doxycycline antibiotic is reasonable. I phoned these prescriptions to [facility] pharmacy. You have a Covid test pending. You need to self quarantine until the result is done and negative. Do not leave your house. Do not get near anybody. The results should be done in 48 to 72 hours, but sometimes longer. We will call with a positive result, the fastest way to get a negative result for confirmation though is to go to the hospital website at [email or web address], click on the my [facility] tab and sign up for the patient portal. If any friends or family get sick and would like to have a Covid test done, but do not have signs or symptoms that would necessitate being hospitalized, we encourage testing through our coronavirus swabbing station, call [phone] to schedule an appointment. Discharge Date/Time: 06/17/21 21:21
[2021-06-17] MEDS ORDERED: diphenhydrAMINE ELIXIR 25 MG/10 ML UDC PO STA (20:05)
[2021-06-17] MEDS ORDERED: BENZONATATE 100 MG CAPSULE PO STA (20:05)
[2021-06-17] MEDS ORDERED: DEXAMETHASONE 10 MG/ML VIAL PO STA (20:05)
[2021-06-17] MEDS ORDERED: ALBUTEROL 1 PUFF INH STA (20:05)
[2021-06-17] MEDS ORDERED: CHERRY SYRUP 10 ML UDC PO ONE (20:05)
--- NOTE | 2021-06-17 20:57 | XRAY Report ---
PROCEDURE: Chest 1 View X-Ray INDICATIONS: cough and chest pain TECHNIQUE: One view of the chest was acquired. COMPARISON: 01/20/2021 FINDINGS: Surgical changes and devices: Dorsal column stimulator. Lungs and pleura: No pleural effusions or pneumothorax. Lungs are clear. Mediastinum: Mediastinal contours appear normal. Heart size is normal. Bones and chest wall: No suspicious bony lesions. Overlying soft tissues appear unremarkable. IMPRESSION: No evidence acute pulmonary process. Reviewed by: Ron Macias MD on 06/17/2021 8:56 PM PDT Approved by: Ron Macias MD on 06/17/2021 8:56 PM PDT Station ID: [id number]
[2021-06-17] MEDS ORDERED: DOXYCYCLINE 100 MG TABLET PO STA (21:02)
[2021-06-17 21:21] VITALS: BP 112/85
== END 2021-06-17 21:21 | disposition home or self-care (01) ==
LOC: ED 18:54
DX: J06.9 Acute upper respiratory infection, unspecified (principal); J45.21 Mild intermittent asthma with (acute) exacerbation; J44.9 Chronic obstructive pulmonary disease, unspecified; R07.9 Chest pain, unspecified; Z20.822 Contact with and (suspected) exposure to COVID-19; I10 Essential (primary) hypertension; E11.9 Type 2 diabetes mellitus without complications; Z79.84 Long term (current) use of oral hypoglycemic drugs; F17.200 Nicotine dependence, unspecified, uncomplicated
CPT/HCPCS: 71045; 93005; 94640; 99284; A9270; U0004

== ENCOUNTER 2021-07-02 08:00 | Outpatient (CLI) | payer MEDICARE, MEDICAID | END 2021-07-02 23:59 | disposition home or self-care (01) | LOC: LAB.N 08:00 | PROVIDERS: ATTEND Family Medicine | DX: R05.9 Cough, unspecified (principal); Z20.822 Contact with and (suspected) exposure to COVID-19 ==

== ENCOUNTER 2021-07-02 12:45 | Outpatient (CLI) | payer MEDICARE, MEDICAID ==
--- NOTE | 2021-07-02 13:56 | XRAY Report ---
PROCEDURE: Chest 2 View X-Ray INDICATIONS: COUGH TECHNIQUE: 2 view(s) of the chest. COMPARISON: June 17, 2021. FINDINGS: SUPPORT DEVICES: None. LUNG/PLEURA: No focal consolidation or pulmonary edema. No pleural effusion or space-occupying pneumo thorax. MEDIASTINUM: The cardiomediastinal silhouette is within normal limits. BONES/SOFT TISSUES: No acute abnormality. IMPRESSION: 1.No acute cardiopulmonary abnormality. Reviewed by: Dean Mathur MD on 07/02/2021 1:54 PM PDT Approved by: Dean Mathur MD on 07/02/2021 1:54 PM PDT Station ID: [id number]
== END 2021-07-02 23:59 ==
LOC: DI.N 12:45
PROVIDERS: ATTEND Family Medicine
DX: R05.9 Cough, unspecified (principal)

== ENCOUNTER 2021-07-12 19:35 | Outpatient (CLI) | payer MEDICARE, MEDICAID | END 2021-07-12 19:36 | disposition EMS.NT | LOC: EMS 19:35 | DX: M54.50 Low back pain, unspecified (principal); J18.9 Pneumonia, unspecified organism ==

== ENCOUNTER 2021-07-13 12:42 | Emergency (ER) | payer MEDICARE, MEDICAID ==
--- NOTE | 2021-07-13 14:34 | XRAY Report ---
PROCEDURE: Chest 2 View X-Ray INDICATIONS: cough soa TECHNIQUE: 2 view(s) of the chest. COMPARISON: None. FINDINGS: Surgical changes and devices: Thoracic spine neurostimulator. Lungs and pleura: No pleural effusions or pneumothorax. Lungs are clear. Mediastinum: Mediastinal contours are normal. Heart size is normal. Bones and chest wall: No suspicious bony abnormalities. Soft tissues appear unremarkable. IMPRESSION: No acute cardiopulmonary disease process. Reviewed by: Daphne Pedersen MD, PhD on 07/13/2021 1:32 PM ELYSSA Approved by: Daphne Pedersen MD, PhD on 07/13/2021 1:32 PM [facility] Station ID: [id number]
[2021-07-13 14:40] LABS: BASOPHILS # (AUTO) 0.1 10^3/uL (0.0-0.1); BASOPHILS % (AUTO) 0.7 %; EOSINOPHILS # (AUTO) 0.3 10^3/uL (0.0-0.7); EOSINOPHILS % (AUTO) 1.8 %; HGB - HEMOGLOBIN 13.8 g/dL (12.0-16.0); LYMPHOCYTES # (AUTO) 3.8 10^3/uL (1.5-3.5); LYMPHOCYTES % (AUTO) 27.7 %; MEAN CORPUSCULAR HEMOGLOBIN 27.8 pg (27.0-31.0); MEAN CORPUSCULAR HGB CONC 32.1 g/dL (32.0-36.0); MEAN CORPUSCULAR VOLUME 86.7 fL (81.0-99.0); MEAN PLATELET VOLUME 8.4 fL (7.9-10.8); MONOCYTES # (AUTO) 0.9 10^3/uL (0.0-1.0); MONOCYTES % (AUTO) 6.4 %; NEUTROPHILS # (AUTO) 8.7 10^3/uL (1.5-6.6); NEUTROPHILS % (AUTO) 62.7 %; PLT - PLATELET COUNT 307 10^3/uL (130-450); RED BLOOD COUNT 4.96 10^6/uL (4.20-5.40); RED CELL DISTRIBUTION WIDTH 17.8 % (12.0-15.0); WHITE BLOOD COUNT 13.9 x10^3/uL (4.8-10.8)
[2021-07-13 14:56] VITALS: BP 99/72
[2021-07-13 15:00] LABS: ALBUMIN 4.1 g/dL (3.2-5.5); ALBUMIN/GLOBULIN RATIO 1.5 (1.0-2.2); BILIRUBIN,TOTAL 0.9 mg/dL (0.2-1.0); CALCIUM 9.7 mg/dL (8.5-10.3); CREATININE 1.2 mg/dL (0.4-1.0); POTASSIUM 4.2 mmol/L (3.5-5.0); TOTAL PROTEIN 6.9 g/dL (6.7-8.2)
--- NOTE | 2021-07-13 15:25 | ED Physician Documentation ---
PD HPI URI - Stated complaint Stated Complaint: SOA/ABDOMINAL PX - Chief complaint Chief Complaint: Resp - History obtained from History obtained from: Patient - History of Present Illness Timing - onset: How many weeks ago (3) Timing duration: Weeks (3) Timing details: Gradual onset, Still present, Waxing and waning Associated symptoms: Fever, Nasal congestion, Productive cough, Dyspnea Contributing factors: COPD / asthma, Other (immunized J&J) Improves by: Rest, Medication, MDI/nebulizer Worsened by: Activity Similar symptoms before: Diagnosis (COPD/pneumonia) Recently seen: Clinic, Emergency Dept - Additional information Additional information: 51-year-old female with a history of COPD and asthma has developed a cough and congestion was seen in the emergency department almost a month ago placed on doxycycline and prednisone had some improvement did not completely resolve and she went back to the clinic had a second round of antibiotics and steroid. She is continuing that and despite that she has now developed a more productive cough and continues to have symptoms. She has developed some pain in her sides where her ribs attach to her abdominal muscles and she is having coughing paroxysms. She also is complaining of some bright red blood per rectum on the paper when she wipes. She has been having diarrhea 2-3 times per day. She has been taking doxycycline she took doxycycline on both rounds of antibiotic and despite that she has productive sputum. She does not feel that she has resolved her issue. She had an x-ray showing some pneumonia previously. Review of Systems Constitutional: reports: Fever Eyes: denies: Decreased vision Ears: denies: Ear pain Nose: reports: Congestion Throat: denies: Sore throat Cardiac: denies: Chest pain / pressure, Palpitations, Pedal edema, Calf pain Respiratory: reports: Dyspnea, Cough, Wheezing GI: reports: Abdominal Pain, Diarrhea, Bloody / black stool : denies: Dysuria, Frequency Skin: denies: Rash Musculoskeletal: denies: Neck pain, Back pain, Extremity pain PD PAST MEDICAL HISTORY - Past Medical History Cardiovascular: Hypertension Respiratory: Asthma Neuro: Migraines Endocrine/Autoimmune: Type 2 diabetes GI: Chronic diarrhea 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 HEENT: Chronic vision loss Psych: Depression, Anxiety, Bipolar disorder, Schizophrenia, Panic attacks, Claustrophobia Musculoskeletal: Chronic back pain Derm: None - Past Surgical History Past Surgical History: Yes General: Appendectomy Ortho: Spine surgery, Other /BEAM BUILDER HELPER: Tubal ligation, 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 - Present Medications Home Medications: Ambulatory Orders Medication Instructions Recorded Confirmed QUEtiapine [SEROquel] 450 mg ORAL QPM 09/09/15 11/01/20 Ziprasidone HCl 80 mg ORAL QPM 09/09/15 11/01/20 Albuterol Sulfate [Proair Hfa 8.5 gm IH QID #1 hfa.aer.ad 09/20/15 11/01/20 Inhaler] Trazodone HCl 3 tab PO DAILY PM 09/13/17 11/01/20 Gabapentin 600 mg PO BID 01/07/19 11/01/20 Metformin HCl 500 mg PO DAILY 01/07/19 11/01/20 Topiramate 25 mg PO BID 01/07/19 11/01/20 Prazosin [Minipress] 2 mg PO DAILY 02/05/19 11/01/20 Sertraline HCl 150 mg PO DAILY 02/05/19 11/01/20 Potassium Chloride 1 tab DAILY 11/24/19 11/01/20 Aspirin [Aspirin EC] 81 mg PO DAILY 11/01/20 11/01/20 Atorvastatin [Lipitor] 40 mg PO DAILY 11/01/20 11/01/20 Cetirizine [ZyrTEC] 10 mg PO DAILY 11/01/20 11/01/20 Estradiol [Estrace] 0.5 mg PO DAILY 11/01/20 11/01/20 Furosemide [Lasix] 40 mg PO DAILY 11/01/20 11/01/20 Omeprazole 20 mg PO DAILY 11/01/20 11/01/20 Pantoprazole [Protonix] 20 mg PO DAILY 11/01/20 11/01/20 Doxycycline Hyclate 100 mg PO BID #14 01/30/21 Varenicline Tartrate [Chantix] 0.5 mg PO DAILY #11 tablet 01/30/21 Varenicline Tartrate [Chantix] 1 each PO BID #77 01/30/21 predniSONE [Deltasone] 20 mg PO [id number] #21 tab 01/30/21 Benzonatate [Tessalon] 100 mg PO TID PRN #20 cap 06/17/21 Doxycycline Hyclate 100 mg PO BID 5 Days #10 tab 06/17/21 dexAMETHasone [Decadron] 4 mg PO DAILY #5 tablet 06/17/21 Cefdinir 300 mg PO BID #20 cap 07/13/21 Codeine Phosphate/Guaifenesin 5 - 10 ml PO Q6HR PRN #200 ml 07/13/21 [Guaifen-Codeine 100-10 mg/5 ml] - Allergies Allergies/Adverse Reactions: Allergies Allergy/AdvReac Type Severity Reaction Status Date / Time amoxicillin [Amoxicillin] Allergy Intermediate Emesis Verified 07/13/21 12:48 aspartame Allergy Unknown Verified 07/13/21 12:48 chocolate flavor Allergy Unknown Verified 07/13/21 12:48 NSAIDS (Non-Steroidal Allergy Unknown Verified 07/13/21 12:48 Anti-Inflamma Penicillins Allergy Unknown Verified 07/13/21 12:48 wheat Allergy Unknown Verified 07/13/21 12:48 naproxen [From Naprosyn] AdvReac Intermediate Hives Verified 07/13/21 12:48 hydrocodone bitartrate * AdvReac Emesis Verified 07/13/21 12:48 [From Vicodin] lactase [From Dairy Aid] AdvReac Unknown Verified 07/13/21 12:48 - Social History Does the pt smoke?: Yes Smoking Status: Current every day smoker Does the pt drink ETOH?: No Does the pt have substance abuse?: No - Immunizations Immunizations are current?: Yes - POLST Patient has POLST: No PD ED PE NORMAL - Vitals Vital signs reviewed: Yes (Hypertensive mild) - General General: Alert and oriented X 3, No acute distress, Well developed/nourished - HEENT HEENT: Atraumatic, PERRL, EOMI, Ears normal, Other (Dry mucous membranes) - Neck Neck: Supple, no meningeal sign, No bony TTP - Cardiac Cardiac: RRR, No murmur - Respiratory Respiratory: No respiratory distress, Other (Scattered wheezes and rhonchi bilaterally reduced air movement. Tenderness to the ribs in the left anterolateral.) - Abdomen Abdomen: Normal bowel sounds, Soft - Back Back: No CVA TTP, No spinal TTP - Derm Derm: Normal color, Warm and dry, No rash - Extremities Extremities: No deformity, No edema - Neuro Neuro: Alert and oriented X 3, transformation manager 2-12 intact, No motor deficit, No sensory deficit, Normal speech Eye Opening: Spontaneous Motor: Obeys Commands Verbal: Oriented GCS Score: 15 - Psych Psych: Normal mood, Other (Affect is flat) Results - Vitals Vitals: Vital Signs - 24 hr 07/13/21 07/13/21 07/13/21 12:48 12:54 14:54 Temperature 36.5 C 36.5 C Heart Rate 87 87 83 Respiratory 20 20 16 Rate Blood Pressure 127/82 H 127/82 H 99/72 O2 Saturation 96 96 94 Oxygen O2 Source Room air - Labs Labs: Laboratory Tests 07/13/21 07/13/21 14:33 14:33 WBC 13.9 H RBC 4.96 Hgb 13.8 Hct 43.0 MCV 86.7 MCH 27.8 MCHC 32.1 RDW 17.8 H Plt Count 307 MPV 8.4 Neut # (Auto) 8.7 H Lymph # (Auto) 3.8 H Isabela # (Auto) 0.9 Eos # (Auto) 0.3 Baso # (Auto) 0.1 Absolute Nucleated RBC 0.00 Nucleated RBC % 0.0 Sodium 137 Potassium 4.2 Chloride 104 Carbon Dioxide 25 Anion Gap 8.0 BUN 15 Creatinine 1.2 H Estimated GFR (MDRD) 47 L Glucose 109 H Calcium 9.7 Total Bilirubin 0.9 AST 12 ALT 25 Alkaline Phosphatase 78 Total Protein 6.9 Albumin 4.1 Globulin 2.8 Albumin/Globulin Ratio 1.5 Lipase 32 - Rads (name of study) chest Radiology: Prelim report reviewed (Impression: No acute cardiopulmonary disease process.), EMP read indepedently, See rad report PD MEDICAL DECISION MAKING - ED course Complexity details: reviewed old records, reviewed results, re-evaluated patient, considered differential, d/w patient ED course: 51-year-old female with a history of COPD and asthma has had a flare of her COPD she has developed a cough productive of sputum she has a negative chest x-ray today she has been on her second course of doxycycline and is now developed some diarrhea and has blood on the paper when she wipes. I have asked patient to discontinue the use of doxycycline and we will substitute codine cough syrup for the tesselon as she has pain related to excessive coughing. We will provide an alternative antibiotic until her sputum is clear. I have also asked patient to use yogurt or a probiotic. Departure - Departure Disposition: 01 Home, Self Care Clinical Impression: Upper respiratory tract infection Qualifiers: URI type: unspecified URI Qualified Code(s): J06.9 - Acute upper respiratory infection, unspecified Exacerbation of asthma Qualifiers: Asthma severity: moderate Asthma persistence: persistent Qualified Code(s): J45.41 - Moderate persistent asthma with (acute) exacerbation Condition: Stable Instructions: ED Bronchitis Asthmatic, ED COPD Flare Follow-Up: Henrique Ortiz MD [Primary Care Provider] - Prescriptions: Codeine Phosphate/Guaifenesin [Guaifen-Codeine 100-10 mg/5 ml] 5 - 10 ml PO Q6HR PRN #200 ml PRN Reason: Cough Cefdinir 300 mg PO BID #20 cap Discharge Date/Time: 07/13/21 15:50
== END 2021-07-13 15:50 | disposition home or self-care (01) ==
LOC: ED 12:42
DX: J44.1 Chronic obstructive pulmonary disease with (acute) exacerbation (principal); J45.41 Moderate persistent asthma with (acute) exacerbation; J06.9 Acute upper respiratory infection, unspecified; I10 Essential (primary) hypertension; E11.9 Type 2 diabetes mellitus without complications; Z79.84 Long term (current) use of oral hypoglycemic drugs; F17.200 Nicotine dependence, unspecified, uncomplicated
CPT/HCPCS: 36415; 80053; 83690; 85025; 99284

== ENCOUNTER 2021-07-25 08:52 | Outpatient (CLI) | payer MEDICARE, MEDICAID | END 2021-07-25 08:53 | disposition home or self-care (01) | LOC: RT 08:52 | PROVIDERS: ATTEND Family Medicine | DX: I27.81 Cor pulmonale (chronic) (principal); J44.9 Chronic obstructive pulmonary disease, unspecified | CPT/HCPCS: 94060; 94729 ==

== ENCOUNTER 2021-07-26 13:09 | Outpatient (CLI) | payer MEDICARE, MEDICAID | END 2021-07-26 13:10 | disposition critical access hospital (66) | LOC: EMS 13:09 | DX: R09.02 Hypoxemia (principal) | CPT/HCPCS: A0425; A0429 ==

== ENCOUNTER 2021-07-26 13:27 | Emergency (ER) | payer MEDICARE, MEDICAID ==
[2021-07-26] MEDS ORDERED: IPRATROPIUM/ALBUTEROL 3 ML NEB INH STA (13:31)
--- NOTE | 2021-07-26 13:34 | ED Physician Documentation ---
PD HPI DYSPNEA - Stated complaint Stated Complaint: DIFF BREATHING - History obtained from History obtained from: Patient, EMS - Additional information Additional information: 51-year-old woman with recently diagnosed COPD, continues to smoke has had a tough couple of months as far as breathing. She was seen for COPD exacerbation initially in early June and started on doxycycline. Subsequently seen earlier this month and started on cefdinir. She had spirometry done yesterday confirming COPD. She feels like the antibiotics are not working but discussed with her that antibiotics really often are not that helpful and COPD, more h elpful would be bronchodilators and tobacco cessation. She is coughing up "chunks." White in color. She denies fevers. No pedal edema or calf pain. No chest pain. Review of Systems Constitutional: denies: Fever, Chills Nose: denies: Rhinorrhea / runny nose Throat: denies: Sore throat Cardiac: denies: Chest pain / pressure, Palpitations Respiratory: reports: Dyspnea, Cough, Wheezing. 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 HEENT: Chronic vision loss Psych: Depression, Anxiety, Bipolar disorder, Schizophrenia, Panic attacks, Claustrophobia Musculoskeletal: Chronic back pain Derm: None - Past Surgical History Past Surgical History: Yes General: Appendectomy Ortho: Spine surgery, Other /BRANDING MACHINE TENDER: Tubal ligation, 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 - Present Medications Home Medications: Ambulatory Orders Medication Instructions Recorded Confirmed QUEtiapine [SEROquel] 450 mg ORAL QPM 09/09/15 11/01/20 Ziprasidone HCl 80 mg ORAL QPM 09/09/15 11/01/20 Albuterol Sulfate [Proair Hfa 8.5 gm IH QID #1 hfa.aer.ad 09/20/15 11/01/20 Inhaler] Trazodone HCl 3 tab PO DAILY PM 09/13/17 11/01/20 Gabapentin 600 mg PO BID 01/07/19 11/01/20 Metformin HCl 500 mg PO DAILY 01/07/19 11/01/20 Topiramate 25 mg PO BID 01/07/19 11/01/20 Prazosin [Minipress] 2 mg PO DAILY 02/05/19 11/01/20 Sertraline HCl 150 mg PO DAILY 02/05/19 11/01/20 Potassium Chloride 1 tab DAILY 11/24/19 11/01/20 Aspirin [Aspirin EC] 81 mg PO DAILY 11/01/20 11/01/20 Atorvastatin [Lipitor] 40 mg PO DAILY 11/01/20 11/01/20 Cetirizine [ZyrTEC] 10 mg PO DAILY 11/01/20 11/01/20 Estradiol [Estrace] 0.5 mg PO DAILY 11/01/20 11/01/20 Furosemide [Lasix] 40 mg PO DAILY 11/01/20 11/01/20 Omeprazole 20 mg PO DAILY 11/01/20 11/01/20 Pantoprazole [Protonix] 20 mg PO DAILY 11/01/20 11/01/20 Doxycycline Hyclate 100 mg PO BID #14 01/30/21 Varenicline Tartrate [Chantix] 0.5 mg PO DAILY #11 tablet 01/30/21 Varenicline Tartrate [Chantix] 1 each PO BID #77 01/30/21 predniSONE [Deltasone] 20 mg PO [id number] #21 tab 01/30/21 Benzonatate [Tessalon] 100 mg PO TID PRN #20 cap 06/17/21 Doxycycline Hyclate 100 mg PO BID 5 Days #10 tab 06/17/21 dexAMETHasone [Decadron] 4 mg PO DAILY #5 tablet 06/17/21 Cefdinir 300 mg PO BID #20 cap 07/13/21 Codeine Phosphate/Guaifenesin 5 - 10 ml PO Q6HR PRN #200 ml 07/13/21 [Guaifen-Codeine 100-10 mg/5 ml] Nicotine 14 mg Patch [Nicoderm] 1 each TOP Q24H #14 patch 07/26/21 Nicotine 21 mg Patch [Nicoderm] 1 each TOP Q24H #14 patch 07/26/21 Nicotine 7 mg Patch [Nicoderm] 1 each TOP Q24H #14 patch 07/26/21 predniSONE [Deltasone] 20 mg PO [id number] #21 tab 07/26/21 - Allergies Allergies/Adverse Reactions: Allergies Allergy/AdvReac Type Severity Reaction Status Date / Time amoxicillin [Amoxicillin] Allergy Intermediate Emesis Verified 07/26/21 13:33 aspartame Allergy Unknown Verified 07/26/21 13:33 chocolate flavor Allergy Unknown Verified 07/26/21 13:33 NSAIDS (Non-Steroidal Allergy Unknown Verified 07/26/21 13:33 Anti-Inflamma Penicillins Allergy Unknown Verified 07/26/21 13:33 wheat Allergy Unknown Verified 07/26/21 13:33 naproxen [From Naprosyn] AdvReac Intermediate Hives Verified 07/26/21 13:33 hydrocodone bitartrate * AdvReac Emesis Verified 07/26/21 13:33 [From Vicodin] lactase [From Dairy Aid] AdvReac Unknown Verified 07/26/21 13:33 - Social History Does the pt smoke?: Yes Smoking Status: Current every day smoker Does the pt drink ETOH?: No Does the pt have substance abuse?: No - Immunizations Immunizations are current?: Yes - POLST Patient has POLST: No PD ED PE NORMAL - Vitals Vital signs reviewed: Yes - General General: Alert and oriented X 3, No acute distress - HEENT HEENT: PERRL, EOMI - Neck Neck: Supple, no meningeal sign, No bony TTP - Cardiac Cardiac: RRR, No murmur - Respiratory Respiratory: No respiratory distress, Other (Rhonchorous throughout but nonlabored) - Extremities Extremities: No edema, No calf tenderness / cord - Neuro Neuro: Alert and oriented X 3, Normal speech Results - Vitals Vitals: Vital Signs - 24 hr 07/26/21 07/26/21 07/26/21 13:33 13:41 13:43 Temperature 37.3 C 37.3 C Heart Rate 100 100 96 Respiratory 20 20 16 Rate Blood Pressure 122/71 122/71 O2 Saturation 94 99 Oxygen O2 Source Room air - Rads (name of study) Single view chest x-ray read as suspected pulmonary vascular engorgement, see MDM Radiology: EMP read contemporaneously PD MEDICAL DECISION MAKING - ED course ED course: 51-year-old woman presents with COPD exacerbation. Other etiologies of dyspnea are considered but given the overall history and physical deemed to be very unlikely. Tobacco cessation was discussed and counseled at length. 51-year-old woman presents with subacute shortness of breath, worse since getting the news of confirmed COPD yesterday. She is euvolemic on exam and really no suggestion of CHF based on the overall clinical picture despite the chest x-ray read. Her exam is very consistent with COPD. After the administration of a DuoNeb she was feeling better. Oxygen saturations remained at 93-95 on room air. Her home pulse oximeter was reading in the low 80s but it still reads that here despite our oximeter reading the above values. As such I suspect her oximeter is incorrect. Departure - Departure Disposition: Home, Self Care Clinical Impression: COPD exacerbation Condition: Good Record reviewed to determine appropriate education?: Yes Instructions: COPD Dc Prescriptions: predniSONE [Deltasone] 20 mg PO [id number] #21 tab Nicotine 7 mg Patch [Nicoderm] 1 each TOP Q24H #14 patch Nicotine 14 mg Patch [Nicoderm] 1 each TOP Q24H #14 patch Nicotine 21 mg Patch [Nicoderm] 1 each TOP Q24H #14 patch Comments: Continue your Symbicort and albuterol inhalers. As discussed it is imperative to quit smoking. Call your doctor to arrange a follow-up appointment, make the next available appointment. In the interim, return anytime if worse or if new symptoms develop.
--- NOTE | 2021-07-26 13:50 | XRAY Report ---
PROCEDURE: Chest 1 View X-Ray INDICATIONS: dyspnea TECHNIQUE: One view of the chest was acquired. COMPARISON: CXR 07/13/2021, 07/02/2021. FINDINGS: Surgical changes and devices: None. Lungs and pleura: No pleural effusions or pneumothorax. No consolidation. Prominent pulmonary vascul ature markings. Mediastinum: Mediastinal contours appear normal. Heart size is normal. Bones and chest wall: No suspicious bony lesions. Overlying soft tissues appear unremarkable. IMPRESSION: Suspect pulmonary vasculature engorgement. Reviewed by: Sean Vital MD on 07/26/2021 1:49 PM PST Approved by: Sean Vital MD on 07/26/2021 1:49 PM [facility] Station ID: [id number]
[2021-07-26 14:28] VITALS: BP 99/68
== END 2021-07-26 14:27 | disposition home or self-care (01) ==
LOC: EDUNIT# → ED 13:27
DX: J44.1 Chronic obstructive pulmonary disease with (acute) exacerbation (principal); F17.200 Nicotine dependence, unspecified, uncomplicated; I10 Essential (primary) hypertension; E11.9 Type 2 diabetes mellitus without complications; H54.7 Unspecified visual loss; F31.9 Bipolar disorder, unspecified; F41.9 Anxiety disorder, unspecified; F20.9 Schizophrenia, unspecified; F41.0 Panic disorder [episodic paroxysmal anxiety]; F40.240 Claustrophobia; Z79.51 Long term (current) use of inhaled steroids; Z79.84 Long term (current) use of oral hypoglycemic drugs; Z79.82 Long term (current) use of aspirin; Z79.52 Long term (current) use of systemic steroids; Z79.899 Other long term (current) drug therapy
CPT/HCPCS: 94640; 94664; 99284; 99285

== ENCOUNTER 2021-09-24 14:01 | Outpatient (CLI) | payer MEDICARE, MEDICAID | END 2021-09-24 14:02 | disposition EMS.NT | LOC: EMS 14:01 | DX: R53.81 Other malaise (principal) ==

== ENCOUNTER 2021-09-24 17:01 | Outpatient (CLI) | payer MEDICARE, MEDICAID ==
--- NOTE | 2021-09-24 18:19 | XRAY Report ---
PROCEDURE: Chest 2 View X-Ray INDICATIONS: COUGH TECHNIQUE: 2 view(s) of the chest. COMPARISON: None. FINDINGS: Surgical changes and devices: None. Lungs and pleura: No pleural effusions or pneumothorax. Lungs are clear. Mediastinum: Mediastinal contours are normal. Heart size is normal. Bones and chest wall: No suspicious bony abnormalities. Soft tissues appear unremarkable. Dorsal: Stimulator device. IMPRESSION: No evidence of acute pulmonary process. Reviewed by: Ron Macias MD on 09/24/2021 6:17 PM PST Approved by: Ron Macias MD on 09/24/2021 6:17 PM PST Station ID: [id number]
== END 2021-09-24 23:59 | disposition home or self-care (01) ==
LOC: DI.N 17:01
PROVIDERS: ATTEND Physician Assistant
DX: B34.9 Viral infection, unspecified (principal); R05.9 Cough, unspecified; Z20.822 Contact with and (suspected) exposure to COVID-19

== ENCOUNTER 2021-09-24 18:27 | Outpatient (CLI) | payer MEDICARE, MEDICAID | END 2021-09-24 18:28 | disposition critical access hospital (66) | LOC: EMS 18:27 | DX: R05.9 Cough, unspecified (principal); R42 Dizziness and giddiness; J02.9 Acute pharyngitis, unspecified; R68.83 Chills (without fever) | CPT/HCPCS: A0425; A0429 ==

== ENCOUNTER 2021-09-24 18:47 | Emergency (ER) | payer MEDICARE, MEDICAID ==
--- NOTE | 2021-09-24 19:06 | ED Physician Documentation ---
History of Present Illness - Stated complaint Stated Complaint: COUGH/CHILLS - Additonal information Additional information: 51-year-old female presents to the emergency department for evaluation of "feeling crummy." She was seen at a local walk-in clinic where repeat reportedly had had cough and congestion for about 5 days. She does carry a history of COPD for which she takes albuterol and Symbicort. She is not oxygen dependent. She is fully vaccinated for COVID-19 and has not had sick contacts. COVID-19 screening test is pending from the walk-in clinic. However because she did not feel well and they felt that her chest x-ray perhaps was somewhat fluffy she was advised to come to the ER. She is not hypoxic No fevers, denies chest pain. She does have some mild dyspnea which is not markedly different from baseline/COPD. She does have a cough which is mildly productive. Review of Systems Constitutional: reports: Myalgias, Fatigue. denies: Fever Eyes: reports: Reviewed and negative Ears: reports: Reviewed and negative Throat: reports: Reviewed and negative Cardiac: denies: Chest pain / pressure, Palpitations, Pedal edema Respiratory: reports: Dyspnea, Cough GI: denies: Abdominal Pain : reports: Reviewed and negative Skin: reports: Reviewed and negative PD PAST MEDICAL HISTORY - Past Medical History Cardiovascular: Hypertension Respiratory: Asthma Neuro: Migraines Endocrine/Autoimmune: Type 2 diabetes GI: Chronic diarrhea PUBLIC HEALTH DIRECTOR: None : None HEENT: Chronic vision loss Psych: Depression, Anxiety, Bipolar disorder, Schizophrenia, Panic attacks, Claustrophobia Musculoskeletal: Chronic back pain Derm: None - Past Surgical History Past Surgical History: Yes General: Appendectomy Ortho: Spine surgery, Other /PUBLIC HEALTH DIRECTOR: Tubal ligation, 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 - Present Medications Home Medications: Ambulatory Orders Medication Instructions Recorded Confirmed QUEtiapine [SEROquel] 450 mg ORAL QPM 09/09/15 11/01/20 Ziprasidone HCl 80 mg ORAL QPM 09/09/15 11/01/20 Albuterol Sulfate [Proair Hfa 8.5 gm IH QID #1 hfa.aer.ad 09/20/15 11/01/20 Inhaler] Trazodone HCl 3 tab PO DAILY PM 09/13/17 11/01/20 Gabapentin 600 mg PO BID 01/07/19 11/01/20 Metformin HCl 500 mg PO DAILY 01/07/19 11/01/20 Topiramate 25 mg PO BID 01/07/19 11/01/20 Prazosin [Minipress] 2 mg PO DAILY 02/05/19 11/01/20 Sertraline HCl 150 mg PO DAILY 02/05/19 11/01/20 Potassium Chloride 1 tab DAILY 11/24/19 11/01/20 Aspirin [Aspirin EC] 81 mg PO DAILY 11/01/20 11/01/20 Atorvastatin [Lipitor] 40 mg PO DAILY 11/01/20 11/01/20 Cetirizine [ZyrTEC] 10 mg PO DAILY 11/01/20 11/01/20 Estradiol [Estrace] 0.5 mg PO DAILY 11/01/20 11/01/20 Furosemide [Lasix] 40 mg PO DAILY 11/01/20 11/01/20 Omeprazole 20 mg PO DAILY 11/01/20 11/01/20 Pantoprazole [Protonix] 20 mg PO DAILY 11/01/20 11/01/20 Doxycycline Hyclate 100 mg PO BID #14 01/30/21 Varenicline Tartrate [Chantix] 0.5 mg PO DAILY #11 tablet 01/30/21 Varenicline Tartrate [Chantix] 1 each PO BID #77 01/30/21 predniSONE [Deltasone] 20 mg PO [id number] #21 tab 01/30/21 Benzonatate [Tessalon] 100 mg PO TID PRN #20 cap 06/17/21 Doxycycline Hyclate 100 mg PO BID 5 Days #10 tab 06/17/21 dexAMETHasone [Decadron] 4 mg PO DAILY #5 tablet 06/17/21 Cefdinir 300 mg PO BID #20 cap 07/13/21 Codeine Phosphate/Guaifenesin 5 - 10 ml PO Q6HR PRN #200 ml 07/13/21 [Guaifen-Codeine 100-10 mg/5 ml] Nicotine 14 mg Patch [Nicoderm] 1 each TOP Q24H #14 patch 07/26/21 Nicotine 21 mg Patch [Nicoderm] 1 each TOP Q24H #14 patch 07/26/21 Nicotine 7 mg Patch [Nicoderm] 1 each TOP Q24H #14 patch 07/26/21 predniSONE [Deltasone] 20 mg PO [id number] #21 tab 07/26/21 Azithromycin [Zithromax] 250 mg PO UD 5 Days #6 tablet 09/24/21 predniSONE [Deltasone] 40 mg PO DAILY 5 Days #10 tablet 09/24/21 - Allergies Allergies/Adverse Reactions: Allergies Allergy/AdvReac Type Severity Reaction Status Date / Time amoxicillin [Amoxicillin] Allergy Intermediate Emesis Verified 09/24/21 18:56 aspartame Allergy Unknown Verified 09/24/21 18:56 chocolate flavor Allergy Unknown Verified 09/24/21 18:56 NSAIDS (Non-Steroidal Allergy Unknown Verified 09/24/21 18:56 Anti-Inflamma Penicillins Allergy Unknown Verified 09/24/21 18:56 wheat Allergy Unknown Verified 09/24/21 18:56 naproxen [From Naprosyn] AdvReac Intermediate Hives Verified 09/24/21 18:56 hydrocodone bitartrate * AdvReac Emesis Verified 09/24/21 18:56 [From Vicodin] lactase [From Dairy Aid] AdvReac Unknown Verified 09/24/21 18:56 - Social History Does the pt smoke?: Yes Smoking Status: Current every day smoker Does the pt drink ETOH?: No Does the pt have substance abuse?: No - Immunizations Immunizations are current?: Yes - POLST Patient has POLST: No PD ED PE NORMAL - General General: Alert and oriented X 3, No acute distress, Well developed/nourished - HEENT HEENT: Atraumatic, Moist mucous membranes - Neck Neck: Supple, no meningeal sign, No adenopathy - Cardiac Cardiac: RRR, No murmur, Strong equal pulses - Respiratory Respiratory: No respiratory distress. No: Clear bilaterally (Faint scattered expiratory wheeze. Good air entry throughout.) - Abdomen Abdomen: Normal bowel sounds, Soft, Non tender - Back Back: No CVA TTP, No spinal TTP - Derm Derm: Normal color, Warm and dry, No rash Results - Vitals Vitals: Vital Signs - 24 hr 09/24/21 09/24/21 18:56 19:12 Temperature 36.6 C Heart Rate 73 70 Respiratory 18 20 Rate Blood Pressure 119/81 H 111/70 O2 Saturation 96 95 Oxygen O2 Source Room air - Labs Labs: Laboratory Tests 09/24/21 09/24/21 19:05 19:05 WBC 14.2 H RBC 4.97 Hgb 13.5 Hct 42.2 MCV 84.9 MCH 27.2 MCHC 32.0 RDW 17.3 H Plt Count 283 MPV 9.3 Neut # (Auto) 9.6 H Lymph # (Auto) 3.5 Mccreary # (Auto) 0.7 Eos # (Auto) 0.2 Baso # (Auto) 0.1 Absolute Nucleated RBC 0.00 Nucleated RBC % 0.0 Sodium 138 Potassium 3.4 L Chloride 101 Carbon Dioxide 27 Anion Gap 10.0 BUN 10 Creatinine 1.0 Estimated GFR (MDRD) 58 L Glucose 101 H Calcium 8.8 Total Bilirubin 0.4 AST 15 ALT 19 Alkaline Phosphatase 84 Total Protein 7.2 Albumin 4.0 Globulin 3.2 Albumin/Globulin Ratio 1.3 Lipase 24 - Rads (name of study) CXR Radiology: Final report received (No evidence of acute pulmonary process.) PD MEDICAL DECISION MAKING - ED course Complexity details: reviewed results, re-evaluated patient, considered differential, d/w patient ED course: This is a well-appearing 51-year-old female who comes to the emergency department for evaluation of feeling generally poor. She has a history of COPD and is being screened for COVID-19. She reports body aches headaches and mild dizziness. Chest x-ray is without acute focal opacity. The screening labs do have a modest leukocytosis. On cardiopulmonary auscultation room air saturations were 97%. She did have some faint scattered expiratory wheeze. She also reports that her cough is new though I suspect it is likely at baseline. However given the history of COPD and active tobaccoism we will treat for COPD exacerbation with azithromycin and prednisone. Her chemistry was otherwise on remarkable. She is neurologically intact. She is advised to maintain quarantine until test results are known. Emergent return precautions were discussed. Departure - Departure Disposition: 01 Home, Self Care Clinical Impression: Generalized weakness COPD (chronic obstructive pulmonary disease) Qualifiers: COPD type: unspecified COPD Qualified Code(s): J44.9 - Chronic obstructive pulmonary disease, unspecified Condition: Stable Record reviewed to determine appropriate education?: Yes Instructions: ED Viral Syndrome Ch, ED COPD Flare Prescriptions: predniSONE [Deltasone] 40 mg PO DAILY 5 Days #10 tablet Azithromycin [Zithromax] 250 mg PO UD 5 Days #6 tablet Comments: Jeni you were seen in the emergency department today because you have not been feeling very well for a number of days. The walk-in clinic has a COVID-19 test that is pending on you. We will call you only if it is positive but it may take 2 to 3 days. Your chest x-ray is normal. There is no pneumonia. Your oxygen levels are normal. However I suspect that you might have a mild COPD exacerbation therefore I am prescribing you some antibiotics and steroids to the [facility]. In general you should assume that you are COVID-positive until you hear otherwise and maintain quarantine. Reasons to return to the emergency department would be sudden severe chest pain, any fainting episodes uncontrolled nausea or vomiting. Or if you develop any severe respiratory distress
[2021-09-24] MEDS ORDERED: AZITHROMYCIN 250 MG TABLET PO STA (19:14)
[2021-09-24] MEDS ORDERED: predniSONE 20 MG TABLET PO STA (19:15)
[2021-09-24 19:17] LABS: BASOPHILS # (AUTO) 0.1 10^3/uL (0.0-0.1); BASOPHILS % (AUTO) 0.6 %; EOSINOPHILS # (AUTO) 0.2 10^3/uL (0.0-0.7); EOSINOPHILS % (AUTO) 1.6 %; HCT - HEMATOCRIT 42.2 % (37.0-47.0); HGB - HEMOGLOBIN 13.5 g/dL (12.0-16.0); LYMPHOCYTES # (AUTO) 3.5 10^3/uL (1.5-3.5); LYMPHOCYTES % (AUTO) 24.9 %; MEAN CORPUSCULAR HEMOGLOBIN 27.2 pg (27.0-31.0); MEAN CORPUSCULAR VOLUME 84.9 fL (81.0-99.0); MEAN PLATELET VOLUME 9.3 fL (7.9-10.8); MONOCYTES # (AUTO) 0.7 10^3/uL (0.0-1.0); MONOCYTES % (AUTO) 4.8 %; NEUTROPHILS # (AUTO) 9.6 10^3/uL (1.5-6.6); NEUTROPHILS % (AUTO) 67.7 %; PLT - PLATELET COUNT 283 10^3/uL (130-450); RED BLOOD COUNT 4.97 10^6/uL (4.20-5.40); RED CELL DISTRIBUTION WIDTH 17.3 % (12.0-15.0); WHITE BLOOD COUNT 14.2 x10^3/uL (4.8-10.8)
[2021-09-24 19:25] LABS: ALBUMIN/GLOBULIN RATIO 1.3 (1.0-2.2); BILIRUBIN,TOTAL 0.4 mg/dL (0.2-1.0); CALCIUM 8.8 mg/dL (8.5-10.3); POTASSIUM 3.4 mmol/L (3.5-5.0); TOTAL PROTEIN 7.2 g/dL (6.7-8.2)
[2021-09-24 20:03] VITALS: BP 112/83
== END 2021-09-24 20:05 | disposition home or self-care (01) ==
LOC: EDUNIT# → ED 18:47
DX: R53.1 Weakness (principal); J44.9 Chronic obstructive pulmonary disease, unspecified; F17.200 Nicotine dependence, unspecified, uncomplicated
CPT/HCPCS: 36415; 80053; 83690; 85025; 99284; A9270; J7512

== ENCOUNTER 2021-10-10 14:56 | Outpatient (CLI) | payer MEDICARE, MEDICAID | END 2021-10-10 14:57 | disposition critical access hospital (66) | LOC: EMS 14:56 | DX: R10.31 Right lower quadrant pain (principal); R10.11 Right upper quadrant pain | CPT/HCPCS: A0425; A0429 ==

== ENCOUNTER 2021-10-10 15:13 | Emergency (ER) | payer MEDICARE, MEDICAID ==
[2021-10-10 16:04] LABS: BASOPHILS # (AUTO) 0.1 10^3/uL (0.0-0.1); BASOPHILS % (AUTO) 0.4 %; EOSINOPHILS % (AUTO) 0.1 %; HCT - HEMATOCRIT 38.9 % (37.0-47.0); HGB - HEMOGLOBIN 12.4 g/dL (12.0-16.0); LYMPHOCYTES % (AUTO) 6.9 %; MEAN CORPUSCULAR HEMOGLOBIN 27.4 pg (27.0-31.0); MEAN CORPUSCULAR HGB CONC 31.9 g/dL (32.0-36.0); MEAN CORPUSCULAR VOLUME 86.1 fL (81.0-99.0); MEAN PLATELET VOLUME 8.8 fL (7.9-10.8); MONOCYTES # (AUTO) 0.2 10^3/uL (0.0-1.0); MONOCYTES % (AUTO) 1.7 %; NEUTROPHILS # (AUTO) 12.4 10^3/uL (1.5-6.6); NEUTROPHILS % (AUTO) 90.4 %; PLT - PLATELET COUNT 287 10^3/uL (130-450); RED BLOOD COUNT 4.52 10^6/uL (4.20-5.40); RED CELL DISTRIBUTION WIDTH 17.4 % (12.0-15.0); WHITE BLOOD COUNT 13.7 x10^3/uL (4.8-10.8)
[2021-10-10 16:18] LABS: ALBUMIN 3.8 g/dL (3.2-5.5); ALBUMIN/GLOBULIN RATIO 1.2 (1.0-2.2); BILIRUBIN,TOTAL 0.3 mg/dL (0.2-1.0); CALCIUM 8.5 mg/dL (8.5-10.3); CREATININE 1.1 mg/dL (0.4-1.0); POTASSIUM 3.1 mmol/L (3.5-5.0)
--- NOTE | 2021-10-10 16:18 | ED Physician Documentation ---
History of Present Illness - Stated complaint Stated Complaint: RT FLANK PX - Chief complaint Chief Complaint: Abd Pain - History obtained from History obtained from: Patient - History of Present Illness Timing: Today Pain level max: 6 Pain level now: 5 - Additonal information Additional information: 51-year-old female with a history of COPD, depression, bipolar, schizophrenia, asthma and migraines. Has chronic diarrhea. Also has type 2 diabetes. She states that today she developed abdominal pain. She states this was on the right side of the abdomen, mainly right upper quadrant and right flank. Nothing makes it better or worse. Nausea but no vomiting. Chronic diarrhea is unchanged. She also states that all of her joints started hurting. She took Vicodin at home without relief. No cough. No congestion. No fevers. No chills. Review of Systems Constitutional: denies: Fever, Chills GI: denies: Vomiting, Diarrhea Skin: denies: Rash Musculoskeletal: denies: Neck pain, Back pain Neurologic: denies: Headache PD PAST MEDICAL HISTORY - Past Medical History Cardiovascular: Hypertension Respiratory: Asthma Neuro: Migraines Endocrine/Autoimmune: Type 2 diabetes GI: Chronic diarrhea BLEACH MIXER: None : None HEENT: Chronic vision loss Psych: Depression, Anxiety, Bipolar disorder, Schizophrenia, Panic attacks, Claustrophobia Musculoskeletal: Chronic back pain Derm: None - Past Surgical History Past Surgical History: Yes General: Appendectomy Ortho: Spine surgery, Other /BLEACH MIXER: Tubal ligation, 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 - Present Medications Home Medications: Ambulatory Orders Medication Instructions Recorded Confirmed QUEtiapine [SEROquel] 450 mg ORAL QPM 09/09/15 11/01/20 Ziprasidone HCl 80 mg ORAL QPM 09/09/15 11/01/20 Albuterol Sulfate [Proair Hfa 8.5 gm IH QID #1 hfa.aer.ad 09/20/15 11/01/20 Inhaler] Trazodone HCl 3 tab PO DAILY PM 09/13/17 11/01/20 Gabapentin 600 mg PO BID 01/07/19 11/01/20 Metformin HCl 500 mg PO DAILY 01/07/19 11/01/20 Topiramate 25 mg PO BID 01/07/19 11/01/20 Prazosin [Minipress] 2 mg PO DAILY 02/05/19 11/01/20 Sertraline HCl 150 mg PO DAILY 02/05/19 11/01/20 Potassium Chloride 1 tab DAILY 11/24/19 11/01/20 Aspirin [Aspirin EC] 81 mg PO DAILY 11/01/20 11/01/20 Atorvastatin [Lipitor] 40 mg PO DAILY 11/01/20 11/01/20 Cetirizine [ZyrTEC] 10 mg PO DAILY 11/01/20 11/01/20 Estradiol [Estrace] 0.5 mg PO DAILY 11/01/20 11/01/20 Furosemide [Lasix] 40 mg PO DAILY 11/01/20 11/01/20 Omeprazole 20 mg PO DAILY 11/01/20 11/01/20 Pantoprazole [Protonix] 20 mg PO DAILY 11/01/20 11/01/20 Doxycycline Hyclate 100 mg PO BID #14 01/30/21 Varenicline Tartrate [Chantix] 0.5 mg PO DAILY #11 tablet 01/30/21 Varenicline Tartrate [Chantix] 1 each PO BID #77 01/30/21 predniSONE [Deltasone] 20 mg PO [id number] #21 tab 01/30/21 Benzonatate [Tessalon] 100 mg PO TID PRN #20 cap 06/17/21 Doxycycline Hyclate 100 mg PO BID 5 Days #10 tab 06/17/21 dexAMETHasone [Decadron] 4 mg PO DAILY #5 tablet 06/17/21 Cefdinir 300 mg PO BID #20 cap 07/13/21 Codeine Phosphate/Guaifenesin 5 - 10 ml PO Q6HR PRN #200 ml 07/13/21 [Guaifen-Codeine 100-10 mg/5 ml] Nicotine 14 mg Patch [Nicoderm] 1 each TOP Q24H #14 patch 07/26/21 Nicotine 21 mg Patch [Nicoderm] 1 each TOP Q24H #14 patch 07/26/21 Nicotine 7 mg Patch [Nicoderm] 1 each TOP Q24H #14 patch 07/26/21 predniSONE [Deltasone] 20 mg PO [id number] #21 tab 07/26/21 Azithromycin [Zithromax] 250 mg PO UD 5 Days #6 tablet 09/24/21 predniSONE [Deltasone] 40 mg PO DAILY 5 Days #10 tablet 09/24/21 Oxycodone HCl/Acetaminophen 1 - 2 each PO Q6H PRN #14 tablet 10/10/21 [Percocet 5-325 mg Tablet] - Allergies Allergies/Adverse Reactions: Allergies Allergy/AdvReac Type Severity Reaction Status Date / Time amoxicillin [Amoxicillin] Allergy Intermediate Emesis Verified 10/10/21 15:39 aspartame Allergy Unknown Verified 10/10/21 15:39 chocolate flavor Allergy Unknown Verified 10/10/21 15:39 NSAIDS (Non-Steroidal Allergy Unknown Verified 10/10/21 15:39 Anti-Inflamma Penicillins Allergy Unknown Verified 10/10/21 15:39 wheat Allergy Unknown Verified 10/10/21 15:39 naproxen [From Naprosyn] AdvReac Intermediate Hives Verified 10/10/21 15:39 hydrocodone bitartrate * AdvReac Emesis Verified 10/10/21 15:39 [From Vicodin] lactase [From Dairy Aid] AdvReac Unknown Verified 10/10/21 15:39 - Social History Does the pt smoke?: Yes Smoking Status: Current every day smoker Does the pt drink ETOH?: No Does the pt have substance abuse?: No - Immunizations Immunizations are current?: Yes - POLST Patient has POLST: No PD ED PE NORMAL - Vitals Vital signs reviewed: Yes - General General: Alert and oriented X 3, No acute distress - HEENT HEENT: Moist mucous membranes - Neck Neck: Supple, no meningeal sign - Cardiac Cardiac: RRR - Respiratory Respiratory: No respiratory distress, Clear bilaterally - Abdomen Abdomen: Soft, Non distended, Other (Mild diffuse tenderness palpation without peritoneal signs.) - Back Back: No CVA TTP, No spinal TTP - Derm Derm: Warm and dry - Extremities Extremities: No edema - Neuro Neuro: Alert and oriented X 3 - Psych Psych: Normal mood, Normal affect Results - Vitals Vitals: Vital Signs - 24 hr 10/10/21 10/10/21 10/10/21 15:33 15:38 17:30 Temperature 36.9 C 36.9 C Heart Rate 91 91 88 Respiratory 16 16 17 Rate Blood Pressure 115/74 115/74 104/76 O2 Saturation 92 92 96 Oxygen O2 Source Room air - Labs Labs: Laboratory Tests 10/10/21 10/10/21 10/10/21 15:59 15:59 16:23 WBC 13.7 H RBC 4.52 Hgb 12.4 Hct 38.9 MCV 86.1 MCH 27.4 MCHC 31.9 L RDW 17.4 H Plt Count 287 MPV 8.8 Neut # (Auto) 12.4 H Lymph # (Auto) 1.0 L Edgar # (Auto) 0.2 Eos # (Auto) 0.0 Baso # (Auto) 0.1 Absolute Nucleated RBC 0.00 Nucleated RBC % 0.0 Sodium 133 L Potassium 3.1 L Chloride 96 L Carbon Dioxide 27 Anion Gap 10.0 BUN 9 Creatinine 1.1 H Estimated GFR (MDRD) 52 L Glucose 133 H Calcium 8.5 Total Bilirubin 0.3 AST 17 ALT 16 Alkaline Phosphatase 68 Total Protein 7.0 Albumin 3.8 Globulin 3.2 Albumin/Globulin Ratio 1.2 Lipase 24 Urine Color YELLOW Urine Clarity CLEAR Urine pH 6.5 Ur Specific [place] 1.010 Urine Protein NEGATIVE Urine Glucose (UA) NEGATIVE Urine Ketones NEGATIVE Urine Occult Blood NEGATIVE Urine Nitrite NEGATIVE Urine Bilirubin NEGATIVE Urine Urobilinogen 0.2 (NORMAL) Ur Leukocyte Esterase NEGATIVE Ur Microscopic Review NOT INDICATED Urine Culture Comments NOT INDICATED - Rads (name of study) Right upper quadrant ultrasound Radiology: Final report received, EMP read contemporaneously, See rad report CT abdomen pelvis Radiology: Final report received, EMP read contemporaneously, See rad report PD MEDICAL DECISION MAKING - ED course Complexity details: reviewed results, re-evaluated patient, considered differential, d/w patient ED course: Patient is a 51-year-old female who presents to the emergency department with abdominal pain. Unclear etiology. She does have a hydropic gallbladder, but no evidence of acute cholecystitis. Her white blood cell count is elevated, but is in her usual range of leukocytosis. No fevers. No chills. No vomiting. Pain well controlled. Will trial on pain medication for home and have her have an outpatient HIDA scan with her doctor. She will return for fevers or worsening pain. Patient counseled regarding signs and symptoms for which I believe and urgent re-evaluation would be necessary. Patient with good understanding of and agreement to plan and is comfortable going home at this time This document was made in part using voice recognition software. While efforts are made to proofread this document, sound alike and grammatical errors may occur. I am prescribing a short course of short-acting opioid pain medication for this patient. I have reviewed the patients MASONRY CONTRACTOR and no concerning findings were noted. I have discussed that the opioids are for short term therapy only, and will not be refilled from the ED. IMPRESSION: 1. No acute CT findings in the abdomen or pelvis. 2. Sigmoid diverticulosis without evidence of diverticulitis. IMPRESSION: 1. Hydropic gallbladder with gallbladder sludge. No gallstones. Gallbladder wall is at upper limit of normal. If there is clinical suspicion for acute cholecystitis, HIDA scan is recommended. 2. Diffuse increased hepatic echotexture consistent with fatty infiltration. Other hepatocellular disease could have a similar appearance. Departure - Departure Disposition: 01 Home, Self Care Clinical Impression: Abdominal pain Qualifiers: Abdominal location: generalized Qualified Code(s): R10.84 - Generalized abdominal pain Condition: Good Instructions: ED Abdominal Pain Female Non-Specific Abdominal Pain Follow-Up: Provider,Other [Primary Care Provider] - Within 1 week Prescriptions: Oxycodone HCl/Acetaminophen [Percocet 5-325 mg Tablet] 1 - 2 each PO Q6H PRN #14 tablet PRN Reason: pain Comments: Your prescription was sent to [facility] in [place]. The cause of your symptoms is unclear today. You should have a HIDA scan performed with your doctor to look closer at your gallbladder. Please return if you worsen. I am prescribing a short course of narcotic pain medication for you. These are potentially dangerous and addictive medications that should be used carefully. These medications may constipate you. Take an [id number]-czvmgeh stool softener (docusate) twice daily with plenty of water while taking these medications. If you go 24 hours without a bowel movement, take [id number] miralax, per package instructions. Do not drink or drive while taking these medications. If you received narcotic or sedating medications while in the emergency department, do not drive for 24 hours. Store this medication in a safe, secure place and out of reach of children. It is a violation of federal law to give or sell this medication to another person or to use in a manner other than prescribed. The ED will not refill narcotic prescriptions, including prescriptions lost or stolen. To dispose of unwanted medications: 1. [facility] at [address] in [place] has a medication drop box. They accept prescription medications (in pill form) Monday through Monday 9:00 a.m. to 5:00 p.m. 2. The [facility] accepts prescription medications (in pill form only) for disposal year round. Call for more information. 3. Contact the [facility] for the next [facility] sponsored prescription drug collection event. , [phone], or [phone]; Discharge Date/Time: 10/10/21 19:30
[2021-10-10 16:34] LABS: BILIRUBIN,URINE NEGATIVE (NEGATIVE); GLUCOSE, URINE (UA) NEGATIVE (NEGATIVE); KETONES,URINE (UA) NEGATIVE (NEGATIVE); LEUKOCYTE ESTERASE, URINE NEGATIVE (NEGATIVE); NITRITE,URINE NEGATIVE (NEGATIVE); OCCULT BLOOD,URINE NEGATIVE (NEGATIVE); PH,URINE 6.5 PH (5.0-7.5); PROTEIN,URINE NEGATIVE (NEGATIVE); UROBILINOGEN,URINE 0.2 (NORMAL) E.U./dL (NORMAL)
[2021-10-10 16:40] LABS: CLARITY,URINE CLEAR (CLEAR)
[2021-10-10] MEDS ORDERED: IOVERSOL 320 100 ML VIAL IVP ONE (16:40)
[2021-10-10] MEDS: IOVERSOL 320 100 ML VIAL IVP ONE (17:52)
[2021-10-10 17:55] VITALS: BP 104/76
[2021-10-10] MEDS: ONDANSETRON 4 MG/2 ML VIAL IVP STA (18:02)
[2021-10-10] MEDS: MORPHINE 2 MG/ML CARPUJECT IVP STA (18:02)
--- NOTE | 2021-10-10 18:04 | Ultrasound Report ---
PROCEDURE: Abdomen Limited INDICATIONS: RUQ abd pain TECHNIQUE: Real-time focused scanning was performed of the abdomen, with image documentation. COMPARISON: Ultrasound abdomen limited, 09/13/2017. CT abdomen and pelvis with contrast, 12/31/2018. FINDINGS: Liver is mildly enlarged and demonstrates diffusely increased echotexture. There is gallbladder sludge. Gallbladder is distended measuring 12.6 x 4.5 cm.. Gallbladder wall is a t the upper limits of normal in thickness at 3 mm. No pericholecystic fluid collection or sonographic Whelan sign. Visualized pancreas is normal. Right kidney is normal in size and echotexture. No right hydronephrosis. IVC is patent. IMPRESSION: 1. Hydropic gallbladder with gallbladder sludge. No gallstones. Gallbladder wall is at upper limit of normal. If there is clinical suspicion for acute cholecystitis, HIDA scan is recommended. 2. Diffuse increased hepatic echotexture consistent with fatty infiltration. Other hepatocellular dis ease could have a similar appearance. Reviewed by: Samia Pak MD on 10/10/2021 6:03 PM PST Approved by: Samia aPk MD on 10/10/2021 6:03 PM PST Station ID: [id number]
--- NOTE | 2021-10-10 18:21 | CT Report ---
PROCEDURE: CT abdomen and pelvis with contrast INDICATIONS: R sided abd pain CONTRAST: IV CONTRAST: Optiray 320 ml: 100 PO CONTRAST: *NO PO CONTRAST TECHNIQUE: After the administration of contrast, 5 mm thick sections acquired from the diaphragms to the sym physis. 5 mm thick coronal and sagittal reformats were acquired. For radiation dose reduction, the following was used: automated exposure control, adjustment of mA and/or kV according to patient size . COMPARISON: None. FINDINGS: Image quality: Excellent. ABDOMEN: Lung bases: Lung bases are clear. Heart size is normal. Solid organs: Liver and spleen are normal in size and enhancement. Gallbladder distended but unrema rkable. Biliary system is non dilated. Pancreas enhances normally. No adrenal nodules. Kidneys de monstrate normal size and enhancement, without hydronephrosis. Peritoneum and bowel: Bowel loops demonstrate normal wall thickness and caliber. No free fluid or a ir. Mild sigmoid diverticulosis without evidence of diverticulitis. Nonvisualized appendix, but no p ericecal inflammation present suggest appendicitis. Nodes and vessels: No retroperitoneal or mesenteric adenopathy by size criteria. Aorta and inferior vena cava are normal in size. Miscellaneous: No ventral hernias. Right-sided subcutaneous epidural stimulator noted. PELVIS: Genitourinary: Bladder wall thickness is normal. Miscellaneous: No inguinal hernias or adenopathy. Bones: No suspicious bony lesions. No vertebral body compression fractures. IMPRESSION: 1. No acute CT findings in the abdomen or pelvis. 2. Sigmoid diverticulosis without evidence of diverticulitis. Reviewed by: Lauro Feliz MD on 10/10/2021 5:19 PM [place] Approved by: Lauro Feliz MD on 10/10/2021 5:19 PM [place] Station ID: [id number]
[2021-10-10] MEDS: oxyCODONE 5 MG TABLET PO STA (18:57)
== END 2021-10-10 19:30 | disposition home or self-care (01) ==
LOC: EDUNIT# → ED 15:13
DX: R10.84 Generalized abdominal pain (principal); R11.0 Nausea; R19.7 Diarrhea, unspecified; K82.1 Hydrops of gallbladder; I10 Essential (primary) hypertension; E11.9 Type 2 diabetes mellitus without complications; Z79.84 Long term (current) use of oral hypoglycemic drugs; J44.9 Chronic obstructive pulmonary disease, unspecified; F17.200 Nicotine dependence, unspecified, uncomplicated; Z79.82 Long term (current) use of aspirin
CPT/HCPCS: 36415; 74177; 76705; 80053; 81003; 83690; 85025; 96374; 99284; A9270; Q9967; 81001; 87086

== ENCOUNTER 2021-10-16 14:21 | Emergency (ER) | payer MEDICARE, MEDICAID ==
[2021-10-16] MEDS ORDERED: ONDANSETRON 4 MG/2 ML VIAL IVP STA (14:47)
[2021-10-16] MEDS ORDERED: MORPHINE 2 MG/ML CARPUJECT IVP STA (14:47)
--- NOTE | 2021-10-16 14:51 | ED Physician Documentation ---
History of Present Illness - Stated complaint Stated Complaint: COUGH,ABD PX - Chief complaint Chief Complaint: Abd Pain - Additonal information Additional information: 51-year-old female presents to the emergency department for reevaluation of her right upper quadrant abdominal pain. Seen just a few days ago and at that time had CT imaging of her abdomen as well as abdominal ultrasound which showed a hydropic gallbladder. Cholecystitis was not definitively identified. The patient was referred to outpatient surgery and for an MRCP. Patient states MRCP is scheduled for Monday and a surgical evaluation on Monday. She was prescrib ed hydrocodone on discharge but patient states she has not filled it. Since then she has had persistent abdominal pain. Denies any fevers or vomiting. No melena or hematochezia. PMH: COPD, depression, bipolar, schizophrenia, asthma, chronic diarrhea type 2 diabetes Review of Systems Constitutional: denies: Fever, Chills Throat: reports: Reviewed and negative Cardiac: reports: Reviewed and negative Respiratory: reports: Reviewed and negative GI: reports: Abdominal Pain. denies: Nausea, Vomiting, Constipation, Hematemesis, Bloody / black stool : reports: Reviewed and negative Skin: reports: Reviewed and negative Musculoskeletal: reports: Reviewed and negative Neurologic: reports: Reviewed and negative PD PAST MEDICAL HISTORY - Past Medical History Cardiovascular: Hypertension Respiratory: Asthma Neuro: Migraines Endocrine/Autoimmune: Type 2 diabetes GI: Chronic diarrhea BUSINESS SOLUTIONS ANALYST: None : None HEENT: Chronic vision loss Psych: Depression, Anxiety, Bipolar disorder, Schizophrenia, Panic attacks, Claustrophobia Musculoskeletal: Chronic back pain Derm: None - Past Surgical History Past Surgical History: Yes General: Appendectomy Ortho: Spine surgery, Other /BUSINESS 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 ANALYST: Tubal ligation, 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 - Present Medications Home Medications: Ambulatory Orders Medication Instructions Recorded Confirmed QUEtiapine [SEROquel] 450 mg ORAL QPM 09/09/15 11/01/20 Ziprasidone HCl 80 mg ORAL QPM 09/09/15 11/01/20 Albuterol Sulfate [Proair Hfa 8.5 gm IH QID #1 hfa.aer.ad 09/20/15 11/01/20 Inhaler] Trazodone HCl 3 tab PO DAILY PM 09/13/17 11/01/20 Gabapentin 600 mg PO BID 01/07/19 11/01/20 Metformin HCl 500 mg PO DAILY 01/07/19 11/01/20 Topiramate 25 mg PO BID 01/07/19 11/01/20 Prazosin [Minipress] 2 mg PO DAILY 02/05/19 11/01/20 Sertraline HCl 150 mg PO DAILY 02/05/19 11/01/20 Potassium Chloride 1 tab DAILY 11/24/19 11/01/20 Aspirin [Aspirin EC] 81 mg PO DAILY 11/01/20 11/01/20 Atorvastatin [Lipitor] 40 mg PO DAILY 11/01/20 11/01/20 Cetirizine [ZyrTEC] 10 mg PO DAILY 11/01/20 11/01/20 Estradiol [Estrace] 0.5 mg PO DAILY 11/01/20 11/01/20 Furosemide [Lasix] 40 mg PO DAILY 11/01/20 11/01/20 Omeprazole 20 mg PO DAILY 11/01/20 11/01/20 Pantoprazole [Protonix] 20 mg PO DAILY 11/01/20 11/01/20 Doxycycline Hyclate 100 mg PO BID #14 01/30/21 Varenicline Tartrate [Chantix] 0.5 mg PO DAILY #11 tablet 01/30/21 Varenicline Tartrate [Chantix] 1 each PO BID #77 01/30/21 predniSONE [Deltasone] 20 mg PO [id number] #21 tab 01/30/21 Benzonatate [Tessalon] 100 mg PO TID PRN #20 cap 06/17/21 Doxycycline Hyclate 100 mg PO BID 5 Days #10 tab 06/17/21 dexAMETHasone [Decadron] 4 mg PO DAILY #5 tablet 06/17/21 Cefdinir 300 mg PO BID #20 cap 07/13/21 Codeine Phosphate/Guaifenesin 5 - 10 ml PO Q6HR PRN #200 ml 07/13/21 [Guaifen-Codeine 100-10 mg/5 ml] Nicotine 14 mg Patch [Nicoderm] 1 each TOP Q24H #14 patch 07/26/21 Nicotine 21 mg Patch [Nicoderm] 1 each TOP Q24H #14 patch 07/26/21 Nicotine 7 mg Patch [Nicoderm] 1 each TOP Q24H #14 patch 07/26/21 predniSONE [Deltasone] 20 mg PO [id number] #21 tab 07/26/21 Azithromycin [Zithromax] 250 mg PO UD 5 Days #6 tablet 09/24/21 predniSONE [Deltasone] 40 mg PO DAILY 5 Days #10 tablet 09/24/21 Oxycodone HCl/Acetaminophen 1 - 2 each PO Q6H PRN #14 tablet 10/10/21 [Percocet 5-325 mg Tablet] - Allergies Allergies/Adverse Reactions: Allergies Allergy/AdvReac Type Severity Reaction Status Date / Time amoxicillin [Amoxicillin] Allergy Intermediate Emesis Verified 10/16/21 14:36 aspartame Allergy Unknown Verified 10/16/21 14:36 chocolate flavor Allergy Unknown Verified 10/16/21 14:36 NSAIDS (Non-Steroidal Allergy Unknown Verified 10/16/21 14:36 Anti-Inflamma Penicillins Allergy Unknown Verified 10/16/21 14:36 wheat Allergy Unknown Verified 10/16/21 14:36 naproxen [From Naprosyn] AdvReac Intermediate Hives Verified 10/16/21 14:36 hydrocodone bitartrate * AdvReac Emesis Verified 10/16/21 14:36 [From Vicodin] lactase [From Dairy Aid] AdvReac Unknown Verified 10/16/21 14:36 - Social History Does the pt smoke?: Yes Smoking Status: Current every day smoker Does the pt drink ETOH?: No Does the pt have substance abuse?: No - Immunizations Immunizations are current?: Yes - POLST Patient has POLST: No PD ED PE EXPANDED - General General: Alert, No acute distress - Cardiac Cardiac: Regular Rate, Radial strong equal, Pedal strong equal, Cap refill < 2 sec - Respiratory Respiratory: Clear to ausultation conchita. No: Distress, Labored - Abdomen Abdomen: Normal Bowel sounds, RUQ (Generalized abdominal tenderness most focal in the right upper quadrant without guarding or rebound. Nonperitoneal.) - Derm Derm: Normal color, Warm and dry. No: Rash - Extremities Extremities: Normal. No: Deformity, Tenderness - Neuro Neuro: Alert and Oriented X 3, CNII-XII intact - GCS Eye Opening: Spontaneous Motor: Obeys Commands Verbal: Oriented Total: 15 Results - Vitals Vitals: Vital Signs - 24 hr 10/16/21 10/16/21 10/16/21 14:26 14:52 15:26 Temperature 36.5 C Heart Rate 98 95 Respiratory 16 25 H 22 Rate Blood Pressure 96/60 117/82 H O2 Saturation 99 92 95 Oxygen O2 Source Room air - Labs Labs: Laboratory Tests 10/16/21 10/16/21 10/16/21 14:00 14:50 14:50 WBC 11.8 H RBC 4.44 Hgb 12.1 Hct 38.6 MCV 86.9 MCH 27.3 MCHC 31.3 L RDW 18.2 H Plt Count 310 MPV 9.6 Neut # (Auto) 9.1 H Lymph # (Auto) 2.0 [place] # (Auto) 0.5 Eos # (Auto) 0.2 Baso # (Auto) 0.1 Absolute Nucleated RBC 0.00 Nucleated RBC % 0.0 Sodium 141 Potassium 3.4 L Chloride 103 Carbon Dioxide 28 Anion Gap 10.0 BUN 8 Creatinine 1.1 H Estimated GFR (MDRD) 52 L Glucose 90 Calcium 8.6 Total Bilirubin 0.5 AST 20 ALT 14 Alkaline Phosphatase 74 Total Protein 6.8 Albumin 3.7 Globulin 3.1 Albumin/Globulin Ratio 1.2 Lipase 20 L Urine Color YELLOW Urine Clarity CLEAR Urine pH 7.0 Ur Specific [place] 1.010 Urine Protein NEGATIVE Urine Glucose (UA) NEGATIVE Urine Ketones NEGATIVE Urine Occult Blood NEGATIVE Urine Nitrite NEGATIVE Urine Bilirubin NEGATIVE Urine Urobilinogen 4 H Ur Leukocyte Esterase NEGATIVE Ur Microscopic Review NOT INDICATED Urine Culture Comments NOT INDICATED PD MEDICAL DECISION MAKING - ED course Complexity details: reviewed results, re-evaluated patient, considered differential, d/w patient ED course: 51-year-old female returns the emergency department for reevaluation of right upper quadrant abdominal pain. Seen a few days ago for similar by my colleague. CT of the abdomen did not suggest cholecystitis. Ultrasound showed a hydropic gallbladder. The patient is scheduled for an outpatient MRCP this week. The patient has not filled her outpatient medications/hydrocodone. She has pain but no fevers, nausea or vomiting. No melena or hematochezia. She does have some tenderness in the right upper quadrant without peritoneal signs. Screening labs were reobtained today and show no signs of biliary obstruction. Her white count is reduced from recent. Initially in triage she had blood pressure of 96/60 but on reevaluation is normotensive without tachycardia or f ever. Patient is encouraged to fill her outpatient medications. Advanced imaging deferred today. return precautions again discussed Departure - Departure Disposition: 01 Home, Self Care Clinical Impression: RUQ abdominal pain Condition: Stable Record reviewed to determine appropriate education?: Yes Comments: Jeni you were seen in the emergency department for evaluation of your right upper quadrant abdominal pain. You were seen just a few days ago for similar. And you have scheduled your self for the outpatient MRCP. It is important that you continue to follow-up with this testing as it is the test that is necessary to diagnose problems with your gallbladder. The screening labs obtained today do not show any worrisome findings. It is important that you continue to fill the medications prescribed for you a few days ago. This should be available at the pharmacy. Return to the ER if you have fevers, uncontrolled vomiting, black or bloody stools.
[2021-10-16 15:05] LABS: BASOPHILS # (AUTO) 0.1 10^3/uL (0.0-0.1); BASOPHILS % (AUTO) 0.4 %; EOSINOPHILS # (AUTO) 0.2 10^3/uL (0.0-0.7); EOSINOPHILS % (AUTO) 1.4 %; HCT - HEMATOCRIT 38.6 % (37.0-47.0); HGB - HEMOGLOBIN 12.1 g/dL (12.0-16.0); LYMPHOCYTES % (AUTO) 16.6 %; MEAN CORPUSCULAR HEMOGLOBIN 27.3 pg (27.0-31.0); MEAN CORPUSCULAR HGB CONC 31.3 g/dL (32.0-36.0); MEAN CORPUSCULAR VOLUME 86.9 fL (81.0-99.0); MEAN PLATELET VOLUME 9.6 fL (7.9-10.8); MONOCYTES # (AUTO) 0.5 10^3/uL (0.0-1.0); MONOCYTES % (AUTO) 4.6 %; NEUTROPHILS # (AUTO) 9.1 10^3/uL (1.5-6.6); NEUTROPHILS % (AUTO) 76.4 %; PLT - PLATELET COUNT 310 10^3/uL (130-450); RED BLOOD COUNT 4.44 10^6/uL (4.20-5.40); RED CELL DISTRIBUTION WIDTH 18.2 % (12.0-15.0); WHITE BLOOD COUNT 11.8 x10^3/uL (4.8-10.8)
[2021-10-16 15:11] LABS: BILIRUBIN,URINE NEGATIVE (NEGATIVE); GLUCOSE, URINE (UA) NEGATIVE (NEGATIVE); KETONES,URINE (UA) NEGATIVE (NEGATIVE); LEUKOCYTE ESTERASE, URINE NEGATIVE (NEGATIVE); NITRITE,URINE NEGATIVE (NEGATIVE); OCCULT BLOOD,URINE NEGATIVE (NEGATIVE); PROTEIN,URINE NEGATIVE (NEGATIVE); UROBILINOGEN,URINE 4 E.U./dL (NORMAL)
[2021-10-16 15:16] LABS: CLARITY,URINE CLEAR (CLEAR)
[2021-10-16 15:17] LABS: ALBUMIN 3.7 g/dL (3.2-5.5); ALBUMIN/GLOBULIN RATIO 1.2 (1.0-2.2); BILIRUBIN,TOTAL 0.5 mg/dL (0.2-1.0); CALCIUM 8.6 mg/dL (8.5-10.3); CREATININE 1.1 mg/dL (0.4-1.0); POTASSIUM 3.4 mmol/L (3.5-5.0); TOTAL PROTEIN 6.8 g/dL (6.7-8.2)
--- NOTE | 2021-10-16 17:47 | XRAY Report ---
PROCEDURE: Chest 1 View X-Ray INDICATIONS: chest pain TECHNIQUE: One view of the chest was acquired. COMPARISON: 09/24/2021, 07/26/2021 FINDINGS: Surgical changes and devices: A thoracic spine similar to be seen. Lungs and pleura: No pleural effusions or pneumothorax. Mild generalized interstitial prominence can be seen, which is improved compared to the prior study. Mediastinum: Mediastinal contours appear normal. Heart size is normal. Bones and chest wall: No suspicious bony lesions. Overlying soft tissues appear unremarkable. IMPRESSION: Mild generalized interstitial prominence is seen, which is improved compared to the prior. Reviewed by: Will Perdomo MD on 10/16/2021 4:46 PM [facility] Approved by: Will Perdomo MD on 10/16/2021 4:46 PM [facility] Station ID: [id number]
[2021-10-16 18:44] VITALS: BP 109/74
== END 2021-10-16 18:44 | disposition home or self-care (01) ==
LOC: ED 14:21
DX: R10.11 Right upper quadrant pain (principal); E11.9 Type 2 diabetes mellitus without complications; Z79.84 Long term (current) use of oral hypoglycemic drugs; I10 Essential (primary) hypertension; F17.200 Nicotine dependence, unspecified, uncomplicated
CPT/HCPCS: 36415; 80053; 81001; 81003; 83690; 85025; 87086; 96374; 96375; 99283

== ENCOUNTER 2021-10-16 18:38 | Outpatient (CLI) | payer MEDICARE, MEDICAID | END 2021-10-16 18:39 | disposition home or self-care (01) | LOC: EMS 18:38 | PROVIDERS: ATTEND Registered Nurse | DX: J44.9 Chronic obstructive pulmonary disease, unspecified (principal); Z99.81 Dependence on supplemental oxygen; R10.9 Unspecified abdominal pain | CPT/HCPCS: A0425; A0428 ==

== ENCOUNTER 2021-10-17 10:07 | Outpatient (CLI) | payer MEDICARE, MEDICAID | END 2021-10-17 10:08 | disposition critical access hospital (66) | LOC: EMS 10:07 | DX: R41.0 Disorientation, unspecified (principal); R53.1 Weakness; R30.9 Painful micturition, unspecified; R19.7 Diarrhea, unspecified; R10.814 Left lower quadrant abdominal tenderness; R10.813 Right lower quadrant abdominal tenderness; R14.0 Abdominal distension (gaseous) | CPT/HCPCS: A0425; A0427 ==

== ENCOUNTER 2021-10-17 10:26 | Emergency (ER) | payer MEDICARE, MEDICAID ==
[2021-10-17 11:10] LABS: BASOPHILS % (AUTO) 0.3 %; EOSINOPHILS % (AUTO) 0.3 %; HCT - HEMATOCRIT 40.1 % (37.0-47.0); HGB - HEMOGLOBIN 12.1 g/dL (12.0-16.0); LYMPHOCYTES # (AUTO) 1.1 10^3/uL (1.5-3.5); LYMPHOCYTES % (AUTO) 9.4 %; MEAN CORPUSCULAR HEMOGLOBIN 26.9 pg (27.0-31.0); MEAN CORPUSCULAR HGB CONC 30.2 g/dL (32.0-36.0); MEAN CORPUSCULAR VOLUME 89.1 fL (81.0-99.0); MEAN PLATELET VOLUME 8.9 fL (7.9-10.8); MONOCYTES # (AUTO) 0.4 10^3/uL (0.0-1.0); MONOCYTES % (AUTO) 3.7 %; NEUTROPHILS # (AUTO) 9.9 10^3/uL (1.5-6.6); PLT - PLATELET COUNT 290 10^3/uL (130-450); RED CELL DISTRIBUTION WIDTH 18.1 % (12.0-15.0); WHITE BLOOD COUNT 11.5 x10^3/uL (4.8-10.8)
[2021-10-17 11:16] LABS: INR 1.1 (0.8-1.2); PT - PROTHROMBIN TIME 12.6 secs (9.9-12.6)
[2021-10-17 11:43] LABS: ALBUMIN 3.7 g/dL (3.2-5.5); ALBUMIN/GLOBULIN RATIO 1.2 (1.0-2.2); BILIRUBIN,TOTAL 0.7 mg/dL (0.2-1.0); CALCIUM 8.5 mg/dL (8.5-10.3); CREATININE 1.1 mg/dL (0.4-1.0); POTASSIUM 3.3 mmol/L (3.5-5.0); TOTAL PROTEIN 6.8 g/dL (6.7-8.2)
--- NOTE | 2021-10-17 11:49 | XRAY Report ---
PROCEDURE: Chest 1 View X-Ray INDICATIONS: dyspnea TECHNIQUE: One view of the chest was acquired. COMPARISON: 10/16/2021, 09/24/2021 FINDINGS: Surgical changes and devices: A thoracic spine stimulator is seen. Lungs and pleura: An incomplete inspiratory result is noted, with low lung volumes and crowding of t he vascular markings. No large pneumothorax or large pleural effusion can be seen. Generalized inters titial prominence is seen, which appears worse than on the 10/16/2021 examination. Mediastinum: Mediastinal contours appear normal. Heart size is normal. Bones and chest wall: No suspicious bony lesions. Overlying soft tissues appear unremarkable. IMPRESSION: Worsening generalized interstitial prominence can be seen, which may simply be secondary to the poor inspiratory result. However, differential diagnosis includes worsening pulmonary edema and atypical i nfiltrate. Please consider a short-term follow-up 2 view chest series (performed in deep inspiration) for furthe r evaluation. Reviewed by: Will Perdomo MD on 10/17/2021 10:48 AM [facility] Approved by: Will Perdomo MD on 10/17/2021 10:48 AM [facility] Station ID: [id number]
[2021-10-17] MEDS ORDERED: POTASSIUM CHLORIDE 20 MEQ TABLET PO STA (12:57)
[2021-10-17] MEDS ORDERED: SODIUM CHLORIDE 0.9% 1,000 ML IV STA (12:57)
[2021-10-17] MEDS ORDERED: SODIUM CHLORIDE 0.9% 500 ML IV ONE (12:58)
--- NOTE | 2021-10-17 13:18 | ED Physician Documentation ---
History of Present Illness - Stated complaint Stated Complaint: GLF - Chief complaint Chief Complaint: Resp - History obtained from History obtained from: Patient - Additonal information Additional information: The patient returns emergency department after being seen here a couple of times in the last week for abdominal pain. Her chief complaint today is feeling drowsy and falling down. The patient denies picking her hydrocodone up at the store or taking any. She denies using any other drugs or alcohol. The patient complained of a cough on her last visit but was not found to have any respira tory abnormalities either on work-up or exam. Patient denies any new complaints otherwise. She continues to have right-sided abdominal pain which has been thoroughly worked up in the emergency department and for which patient has a follow-up appointment scheduled with surgery. No chest pain. Patient states she did not sleep well last night. The patient denies focal deficits. Review of Systems Ten Systems: 10 systems reviewed and negative Constitutional: reports: Other (Drowsiness) Eyes: reports: Reviewed and negative Ears: reports: Reviewed and negative Nose: reports: Reviewed and negative Throat: reports: Reviewed and negative Cardiac: reports: Reviewed and negative Respiratory: reports: Reviewed and negative GI: reports: Reviewed and negative : reports: Reviewed and negative Skin: reports: Reviewed and negative Musculoskeletal: reports: Reviewed and negative Neurologic: reports: Reviewed and negative Psychiatric: reports: Reviewed and negative Endocrine: reports: Reviewed and negative Immunocompromised: reports: Reviewed and negative PD PAST MEDICAL HISTORY - Past Medical History Cardiovascular: Hypertension Respiratory: Asthma Neuro: Migraines Endocrine/Autoimmune: Type 2 diabetes GI: Chronic diarrhea [employer]: None : None HEENT: Chronic vision loss Psych: Depression, Anxiety, Bipolar disorder, Schizophrenia, Panic attacks, Claustrophobia Musculoskeletal: Chronic back pain Derm: None - Past Surgical History Past Surgical History: Yes General: Appendectomy Ortho: Spine surgery, Other /[employer]: Tubal ligation, 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 - Present Medications Home Medications: Ambulatory Orders Medication Instructions Recorded Confirmed QUEtiapine [SEROquel] 450 mg ORAL QPM 09/09/15 11/01/20 Ziprasidone HCl 80 mg ORAL QPM 09/09/15 11/01/20 Albuterol Sulfate [Proair Hfa 8.5 gm IH QID #1 hfa.aer.ad 09/20/15 11/01/20 Inhaler] Trazodone HCl 3 tab PO DAILY PM 09/13/17 11/01/20 Gabapentin 600 mg PO BID 01/07/19 11/01/20 Metformin HCl 500 mg PO DAILY 01/07/19 11/01/20 Topiramate 25 mg PO BID 01/07/19 11/01/20 Prazosin [Minipress] 2 mg PO DAILY 02/05/19 11/01/20 Sertraline HCl 150 mg PO DAILY 02/05/19 11/01/20 Potassium Chloride 1 tab DAILY 11/24/19 11/01/20 Aspirin [Aspirin EC] 81 mg PO DAILY 11/01/20 11/01/20 Atorvastatin [Lipitor] 40 mg PO DAILY 11/01/20 11/01/20 Cetirizine [ZyrTEC] 10 mg PO DAILY 11/01/20 11/01/20 Estradiol [Estrace] 0.5 mg PO DAILY 11/01/20 11/01/20 Furosemide [Lasix] 40 mg PO DAILY 11/01/20 11/01/20 Omeprazole 20 mg PO DAILY 11/01/20 11/01/20 Pantoprazole [Protonix] 20 mg PO DAILY 11/01/20 11/01/20 Doxycycline Hyclate 100 mg PO BID #14 01/30/21 Varenicline Tartrate [Chantix] 0.5 mg PO DAILY #11 tablet 01/30/21 Varenicline Tartrate [Chantix] 1 each PO BID #77 01/30/21 predniSONE [Deltasone] 20 mg PO [id number] #21 tab 01/30/21 Benzonatate [Tessalon] 100 mg PO TID PRN #20 cap 06/17/21 Doxycycline Hyclate 100 mg PO BID 5 Days #10 tab 06/17/21 dexAMETHasone [Decadron] 4 mg PO DAILY #5 tablet 06/17/21 Cefdinir 300 mg PO BID #20 cap 07/13/21 Codeine Phosphate/Guaifenesin 5 - 10 ml PO Q6HR PRN #200 ml 07/13/21 [Guaifen-Codeine 100-10 mg/5 ml] Nicotine 14 mg Patch [Nicoderm] 1 each TOP Q24H #14 patch 07/26/21 Nicotine 21 mg Patch [Nicoderm] 1 each TOP Q24H #14 patch 07/26/21 Nicotine 7 mg Patch [Nicoderm] 1 each TOP Q24H #14 patch 07/26/21 predniSONE [Deltasone] 20 mg PO [id number] #21 tab 07/26/21 Azithromycin [Zithromax] 250 mg PO UD 5 Days #6 tablet 09/24/21 predniSONE [Deltasone] 40 mg PO DAILY 5 Days #10 tablet 09/24/21 Oxycodone HCl/Acetaminophen 1 - 2 each PO Q6H PRN #14 tablet 10/10/21 [Percocet 5-325 mg Tablet] - Allergies Allergies/Adverse Reactions: Allergies Allergy/AdvReac Type Severity Reaction Status Date / Time amoxicillin [Amoxicillin] Allergy Intermediate Emesis Verified 10/17/21 10:37 aspartame Allergy Unknown Verified 10/17/21 10:37 chocolate flavor Allergy Unknown Verified 10/17/21 10:37 NSAIDS (Non-Steroidal Allergy Unknown Verified 10/17/21 10:37 Anti-Inflamma Penicillins Allergy Unknown Verified 10/17/21 10:37 wheat Allergy Unknown Verified 10/17/21 10:37 naproxen [From Naprosyn] AdvReac Intermediate Hives Verified 10/17/21 10:37 hydrocodone bitartrate * AdvReac Emesis Verified 10/17/21 10:37 [From Vicodin] lactase [From Dairy Aid] AdvReac Unknown Verified 10/17/21 10:37 - Social History Does the pt smoke?: Yes Smoking Status: Current every day smoker Does the pt drink ETOH?: No Does the pt have substance abuse?: No - Immunizations Immunizations are current?: Yes - POLST Patient has POLST: No PD ED PE NORMAL - Vitals Vital signs reviewed: Yes - General General: No acute distress, Well developed/nourished, Other (Heavily drowsy, and requires frequent stimulation to be kept awake during the interview process.) - HEENT HEENT: Atraumatic, PERRL, EOMI, Moist mucous membranes - Neck Neck: Supple, no meningeal sign - Cardiac Cardiac: RRR, No murmur, Strong equal pulses - Respiratory Respiratory: No respiratory distress, Clear bilaterally - Abdomen Abdomen: Soft, Non tender, Non distended - Back Back: No CVA TTP - Derm Derm: Normal color, Warm and dry, No rash - Extremities Extremities: No deformity, No edema, No calf tenderness / cord - 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 Answers questions appropriately.) - Psych Psych: Normal mood, Normal affect Results - Vitals Vitals: Vital Signs - 24 hr 10/17/21 10/17/21 10/17/21 10:30 11:16 11:30 Temperature 36.0 C L 36.4 C L Heart Rate 110 H 95 96 Respiratory 22 16 18 Rate Blood Pressure 107/78 103/72 113/70 O2 Saturation 96 97 96 10/17/21 10/17/21 10/17/21 11:44 11:58 12:30 Temperature Heart Rate 90 90 98 Respiratory 16 18 17 Rate Blood Pressure 98/70 110/76 106/76 O2 Saturation 97 100 93 10/17/21 10/17/21 10/17/21 13:00 13:30 14:25 Temperature 36.7 C 36.9 C Heart Rate 98 88 80 Respiratory 17 24 24 Rate Blood Pressure 107/76 106/50 L 108/70 O2 Saturation 100 97 96 Oxygen O2 Source Room air - EKG (time done) 1059 Rate: Rate (enter#) (100) Rhythm: Sinus tachycardia [place]: Normal Intervals: RBBB QRS: Normal Ischemia: Normal ST segments Compare to prior EKG: Old EKG unavailable Computer interpretation: Agree with computer - Labs Labs: Laboratory Tests 10/17/21 10/17/21 10/17/21 11:04 11:04 11:04 WBC 11.5 H RBC 4.50 Hgb 12.1 Hct 40.1 MCV 89.1 MCH 26.9 L MCHC 30.2 L RDW 18.1 H Plt Count 290 MPV 8.9 Neut # (Auto) 9.9 H Lymph # (Auto) 1.1 L [place] # (Auto) 0.4 Eos # (Auto) 0.0 Baso # (Auto) 0.0 Absolute Nucleated RBC 0.00 Nucleated RBC % 0.0 PT 12.6 INR 1.1 Sodium 138 Potassium 3.3 L Chloride 101 Carbon Dioxide 29 Anion Gap 8.0 BUN 9 Creatinine 1.1 H Estimated GFR (MDRD) 52 L Glucose 134 H Calcium 8.5 Total Bilirubin 0.7 AST 17 ALT 13 Alkaline Phosphatase 71 Troponin I High Sens B-Natriuretic Peptide Total Protein 6.8 Albumin 3.7 Globulin 3.1 Albumin/Globulin Ratio 1.2 Lipase 21 L Urine Color Urine Clarity Urine pH Ur Specific [place] Urine Protein Urine Glucose (UA) Urine Ketones Urine Occult Blood Urine Nitrite Urine Bilirubin Urine Urobilinogen Ur Leukocyte Esterase Ur Microscopic Review Urine Culture Comments Nasal Adenovirus (PCR) Nasal B. parapertussis DNA (PCR) Nasal Coronavir 229E PCR Nasal Coronavir HKU1 PCR Nasal Coronavir NL63 PCR Nasal Coronavir OC43 PCR Nasal Enterovir/Rhinovir PCR Nasal Influenza B PCR Nasal Influenza A PCR Nasal Parainfluen 1 PCR Nasal Parainfluen 2 PCR Nasal Parainfluen 3 PCR Nasal Parainfluen 4 PCR Nasal RSV (PCR) Nasal B.pertussis DNA PCR Nasal C.pneumoniae (PCR) [place] Human Metapneumo PCR Nasal M.pneumoniae (PCR) Nasal SARS-CoV-2 (PCR) Urine Opiates Screen Ur Oxycodone Screen Urine Methadone Screen Ur Propoxyphene Screen Ur Barbiturates Screen Ur Tricyclics Screen Ur Phencyclidine Scrn Ur Amphetamine Screen U Methamphetamines Scrn U Benzodiazepines Scrn Urine Cocaine Screen U Cannabinoids Screen Ethyl Alcohol 10/17/21 10/17/21 10/17/21 11:04 11:04 11:04 WBC RBC Hgb Hct MCV MCH MCHC RDW Plt Count MPV Neut # (Auto) Lymph # (Auto) [place] # (Auto) Eos # (Auto) Baso # (Auto) Absolute Nucleated RBC Nucleated RBC % PT INR Sodium Potassium Chloride Carbon Dioxide Anion Gap BUN Creatinine Estimated GFR (MDRD) Glucose Calcium Total Bilirubin AST ALT Alkaline Phosphatase Troponin I High Sens 29.9 H* B-Natriuretic Peptide 104 H Total Protein Albumin Globulin Albumin/Globulin Ratio Lipase Urine Color Urine Clarity Urine pH Ur Specific [place] Urine Protein Urine Glucose (UA) Urine Ketones Urine Occult Blood Urine Nitrite Urine Bilirubin Urine Urobilinogen Ur Leukocyte Esterase Ur Microscopic Review Urine Culture Comments Nasal Adenovirus (PCR) Nasal B. parapertussis DNA (PCR) Nasal Coronavir 229E PCR Nasal Coronavir HKU1 PCR Nasal Coronavir NL63 PCR Nasal Coronavir OC43 PCR Nasal Enterovir/Rhinovir PCR Nasal Influenza B PCR Nasal Influenza A PCR Nasal Parainfluen 1 PCR Nasal Parainfluen 2 PCR Nasal Parainfluen 3 PCR Nasal Parainfluen 4 PCR Nasal RSV (PCR) Nasal B.pertussis DNA PCR Nasal C.pneumoniae (PCR) [place] Human Metapneumo PCR Nasal M.pneumoniae (PCR) Nasal SARS-CoV-2 (PCR) Urine Opiates Screen Ur Oxycodone Screen Urine Methadone Screen Ur Propoxyphene Screen Ur Barbiturates Screen Ur Tricyclics Screen Ur Phencyclidine Scrn Ur Amphetamine Screen U Methamphetamines Scrn U Benzodiazepines Scrn Urine Cocaine Screen U Cannabinoids Screen Ethyl Alcohol < 5.0 10/17/21 10/17/21 13:02 13:45 WBC RBC Hgb Hct MCV MCH MCHC RDW Plt Count MPV Neut # (Auto) Lymph # (Auto) [place] # (Auto) Eos # (Auto) Baso # (Auto) Absolute Nucleated RBC Nucleated RBC % PT INR Sodium Potassium Chloride Carbon Dioxide Anion Gap BUN Creatinine Estimated GFR (MDRD) Glucose Calcium Total Bilirubin AST ALT Alkaline Phosphatase Troponin I High Sens B-Natriuretic Peptide Total Protein Albumin Globulin Albumin/Globulin Ratio Lipase Urine Color YELLOW Urine Clarity CLEAR Urine pH 6.0 Ur Specific [place] 1.025 Urine Protein NEGATIVE Urine Glucose (UA) NEGATIVE Urine Ketones NEGATIVE Urine Occult Blood NEGATIVE Urine Nitrite NEGATIVE Urine Bilirubin NEGATIVE Urine Urobilinogen 1 (NORMAL) Ur Leukocyte Esterase NEGATIVE Ur Microscopic Review NOT INDICATED Urine Culture Comments NOT INDICATED Nasal Adenovirus (PCR) NOT DETECTED Nasal B. parapertussis DNA (PCR) NOT DETECTED Nasal Coronavir 229E PCR NOT DETECTED Nasal Coronavir HKU1 PCR NOT DETECTED Nasal Coronavir NL63 PCR NOT DETECTED Nasal Coronavir OC43 PCR NOT DETECTED Nasal Enterovir/Rhinovir PCR NOT DETECTED Nasal Influenza B PCR NOT DETECTED Nasal Influenza A PCR NOT DETECTED Nasal Parainfluen 1 PCR NOT DETECTED Nasal Parainfluen 2 PCR NOT DETECTED Nasal Parainfluen 3 PCR NOT DETECTED Nasal Parainfluen 4 PCR NOT DETECTED Nasal RSV (PCR) NOT DETECTED Nasal B.pertussis DNA PCR NOT DETECTED Nasal C.pneumoniae (PCR) NOT DETECTED [place] Human Metapneumo PCR NOT DETECTED Nasal M.pneumoniae (PCR) NOT DETECTED Nasal SARS-CoV-2 (PCR) NOT DETECTED Urine Opiates Screen POSITIVE H Ur Oxycodone Screen POSITIVE H Urine Methadone Screen NEGATIVE Ur Propoxyphene Screen NEGATIVE Ur Barbiturates Screen NEGATIVE Ur Tricyclics Screen NEGATIVE Ur Phencyclidine Scrn NEGATIVE Ur Amphetamine Screen NEGATIVE U Methamphetamines Scrn NEGATIVE U Benzodiazepines Scrn POSITIVE H Urine Cocaine Screen NEGATIVE U Cannabinoids Screen POSITIVE H Ethyl Alcohol - Rads (name of study) CXR Radiology: Final report received, EMP read indepedently, See rad report (worsening general interstitial prominence, but could be due to poor inspiratory effort.) PD MEDICAL DECISION MAKING - ED course Complexity details: reviewed results, re-evaluated patient, considered differential, d/w patient ED course: The patient was fairly drowsy but other than that, appeared well and was answering questions appropriately. Although the patient denied having picked up her hydrocodone and having taken it, I suspected that she was sedated with some sort of substance, though I was not exactly sure what. Her work-up showed a chest x-ray that looks slightly worse than yesterday, although her BNP was barely elevated at 100, and her white blood cell count had improved since yesterday. Additionally, the patient was afebrile and had an oxygen saturation in the mid 90s on her usual amount of supplemental oxygen. Furthermore, the x- ray did show somewhat poor inspiratory effort on the film then yesterday's, which could account for some of the findings. I do not feel that the rest of the evidence indicates either a CHF exacerbation or an infectious process, given all of the above. The patient was observed in the emergency department and reported feeling much better after IV fluids. She was able to ambulate to the bathroom without difficulty and was much more awake. She stated she would like to go home. I felt that this was reasonable, given the extensive work-up the patient has had over the last week, and the extensive evaluation, as well as the close follow-up she has coming up with surgery. We have discussed the usual indications for return. Departure - Departure Disposition: 01 Home, Self Care Clinical Impression: Sedated due to multiple medications Condition: Stable Instructions: ED Drug React Adverse Other Comments: Your labs actually look better today. You were very drowsy in the emergency department today, and this is most likely the reason you kept feeling like you are going to faint and fall. The only reason that we could find for this drowsiness was that your drug screen revealed that you were positive for o piates, oxycodone, benzodiazepines, and marijuana. Each of these drugs and medications are sedating by themselves, but the effect of all of them together can make you extremely drowsy. It is very important that you do not use sedating or mind altering drugs on top of your regular medications, and that you talk with your doctor about how to take your medications so that they will not pile on top of each other and cause further sedation. Please follow-up as you are planning to do tomorrow. Discharge Date/Time: 10/17/21 16:00
[2021-10-17 13:52] LABS: MUDS CUTOFF CONCENTRATIONS CUTOFF CONC BELOW:
[2021-10-17 14:00] LABS: BILIRUBIN,URINE NEGATIVE (NEGATIVE); GLUCOSE, URINE (UA) NEGATIVE (NEGATIVE); KETONES,URINE (UA) NEGATIVE (NEGATIVE); LEUKOCYTE ESTERASE, URINE NEGATIVE (NEGATIVE); NITRITE,URINE NEGATIVE (NEGATIVE); OCCULT BLOOD,URINE NEGATIVE (NEGATIVE); PROTEIN,URINE NEGATIVE (NEGATIVE); UROBILINOGEN,URINE 1 (NORMAL) E.U./dL (NORMAL)
[2021-10-17 14:06] LABS: CLARITY,URINE CLEAR (CLEAR)
[2021-10-17 14:08] LABS: COCAINE SCREEN URINE NEGATIVE (NEGATIVE); METHAMPHETAMINES SCREEN, URINE NEGATIVE (NEGATIVE); THC CANNABINOID SCREEN, URINE POSITIVE (NEGATIVE)
[2021-10-17 14:09] LABS: AMPHETAMINE SCREEN,URINE NEGATIVE (NEGATIVE); BARBITURATE SCREEN,UR NEGATIVE (NEGATIVE); BENZODIAZEPINES SCREEN, URINE POSITIVE (NEGATIVE); METHADONE SCREEN, URINE NEGATIVE (NEGATIVE); OPIATE SCREEN, URINE POSITIVE (NEGATIVE); OXYCODONE SCREEN, URINE POSITIVE (NEGATIVE); PROPOXYPHENE SCREEN, URINE NEGATIVE (NEGATIVE); TRICYCLIC ANTIDEPRESSANT,URINE NEGATIVE (NEGATIVE)
[2021-10-17 14:09] LABS: B. PARAPERTUSSIS- RESP PCR PAN NOT DETECTED; B. PERTUSSIS- RESP PCR PANEL NOT DETECTED; C. PNEUMONIAE- RESP PCR PANEL NOT DETECTED; CORONAVIRUS 229E-RESP PCR NOT DETECTED; CORONAVIRUS HKU1-RESP PCR NOT DETECTED; CORONAVIRUS NL63-RESP PCR NOT DETECTED; CORONAVIRUS OC43-RESP PCR NOT DETECTED; HUMAN METAPNEUMOVIRUS NOT DETECTED; INFLUENZA A- RESP PCR PANEL NOT DETECTED; INFLUENZA B - RESP PCR PANEL NOT DETECTED; M. PNEUMONIAE- RESP PCR PANEL NOT DETECTED; PARAINFLUENZA VIRUS 1 NOT DETECTED; PARAINFLUENZA VIRUS 2 NOT DETECTED; PARAINFLUENZA VIRUS 3 NOT DETECTED; PARAINFLUENZA VIRUS 4 NOT DETECTED; RHINOVIRUS/ENTEROVIRUS NOT DETECTED; RSV- RESP PCR PANEL NOT DETECTED; SARS-CoV-2 -RESP PCR PANEL NOT DETECTED
[2021-10-17 14:27] VITALS: BP 108/70
== END 2021-10-17 16:00 | disposition home or self-care (01) ==
LOC: EDUNIT# → ED 10:26
DX: F13.988 Sedative, hypnotic or anxiolytic use, unspecified with other sedative, hypnotic or anxiolytic-induced disorder (principal); R40.0 Somnolence; R29.6 Repeated falls; R00.0 Tachycardia, unspecified; I45.10 Unspecified right bundle-branch block; Z20.822 Contact with and (suspected) exposure to COVID-19; I10 Essential (primary) hypertension; E11.9 Type 2 diabetes mellitus without complications; Z79.84 Long term (current) use of oral hypoglycemic drugs; Z79.82 Long term (current) use of aspirin; F17.200 Nicotine dependence, unspecified, uncomplicated
CPT/HCPCS: 36415; 71045; 80053; 80306; 81003; 83690; 83880; 84484; 85025; 85610; 87631; 93005; 96360; 99283; 99284; A9270; G0480; 0202U; 80320; 81001; 87086

== ENCOUNTER 2021-10-18 09:05 | Outpatient (CLI) | payer MEDICARE, MEDICAID ==
[2021-10-18] MEDS ORDERED: SINCALIDE IV ONE (12:00)
[2021-10-18] MEDS ORDERED: SODIUM CHLORIDE 0.9% IV ONE (12:00)
--- NOTE | 2021-10-18 14:20 | Nuclear Medicine Report ---
PROCEDURE: Hepatobiliary HIDA w/ Rx INDICATIONS: ABD PAIN RADIOPHARMACEUTICAL: 5.1 mCi Tc-99m meprofenin i.v. and 1.6 g sincalide i.v. TECHNIQUE: Following intravenous administration of Tc-99m meprofenin, sequential anterior abdominal images were obtained through 60 minutes. To evaluate the contractile response of the gallbladder in response to Cholecystokinin (CCK), 1.6 microgram sincalide (0.02 g/kg) was administered by slow intr avenous infusion approximately 60 minutes after the administration of the radiopharmaceutical. Seque ntial imaging was continued for additional 20 minutes after the start of CCK infusion. The exam was stopped at the patient's request. Gallbladder ejection fraction was calculated. COMPARISON: Ultrasound abdomen, limited, 10/10/2021. FINDINGS: Biliary scan: There is normal tracer uptake and excretion by the liver. There is normal visualizati on of the intrahepatic ducts, common bile duct, and gallbladder. There is normal tracer transit into the duodenum. CCK stimulation: There is normal contractile response of the gallbladder to CCK infusion. The calcu lated gallbladder ejection fraction is 95%; normal values are above 35%. IMPRESSION: 1. Normal biliary imaging study. 2. Normal contractile response of gallbladder to CCK infusion.. Reviewed by: Samia Pak MD on 10/18/2021 2:19 PM PST Approved by: Samia Pak MD on 10/18/2021 2:19 PM PST Station ID: [id number]
== END 2021-10-18 09:06 | disposition home or self-care (01) ==
LOC: DI 09:05
PROVIDERS: ATTEND Nurse Practitioner Family
DX: R10.9 Unspecified abdominal pain (principal)
CPT/HCPCS: 78227

== ENCOUNTER 2021-10-25 12:16 | Emergency (ER) | payer MEDICARE, MEDICAID ==
[2021-10-25 12:47] LABS: BASOPHILS # (AUTO) 0.1 10^3/uL (0.0-0.1); BASOPHILS % (AUTO) 0.8 %; EOSINOPHILS # (AUTO) 0.2 10^3/uL (0.0-0.7); EOSINOPHILS % (AUTO) 1.9 %; HCT - HEMATOCRIT 45.8 % (37.0-47.0); LYMPHOCYTES # (AUTO) 3.4 10^3/uL (1.5-3.5); LYMPHOCYTES % (AUTO) 29.7 %; MEAN CORPUSCULAR HEMOGLOBIN 26.2 pg (27.0-31.0); MEAN CORPUSCULAR HGB CONC 30.6 g/dL (32.0-36.0); MEAN CORPUSCULAR VOLUME 85.6 fL (81.0-99.0); MEAN PLATELET VOLUME 9.1 fL (7.9-10.8); MONOCYTES # (AUTO) 0.6 10^3/uL (0.0-1.0); MONOCYTES % (AUTO) 5.5 %; NEUTROPHILS # (AUTO) 7.1 10^3/uL (1.5-6.6); NEUTROPHILS % (AUTO) 61.8 %; PLT - PLATELET COUNT 368 10^3/uL (130-450); RED BLOOD COUNT 5.35 10^6/uL (4.20-5.40); WHITE BLOOD COUNT 11.6 x10^3/uL (4.8-10.8)
[2021-10-25 13:00] LABS: ALBUMIN 4.7 g/dL (3.2-5.5); ALBUMIN/GLOBULIN RATIO 1.3 (1.0-2.2); BILIRUBIN,TOTAL 0.6 mg/dL (0.2-1.0); CALCIUM 9.4 mg/dL (8.5-10.3); CREATININE 1.1 mg/dL (0.4-1.0); POTASSIUM 3.5 mmol/L (3.5-5.0); TOTAL PROTEIN 8.3 g/dL (6.7-8.2)
[2021-10-25 13:02] LABS: BILIRUBIN,URINE NEGATIVE (NEGATIVE); GLUCOSE, URINE (UA) NEGATIVE (NEGATIVE); KETONES,URINE (UA) NEGATIVE (NEGATIVE); LEUKOCYTE ESTERASE, URINE NEGATIVE (NEGATIVE); NITRITE,URINE NEGATIVE (NEGATIVE); OCCULT BLOOD,URINE NEGATIVE (NEGATIVE); PH,URINE 5.5 PH (5.0-7.5); PROTEIN,URINE NEGATIVE (NEGATIVE); UROBILINOGEN,URINE 0.2 (NORMAL) E.U./dL (NORMAL)
[2021-10-25 13:03] LABS: CLARITY,URINE CLEAR (CLEAR)
[2021-10-25] MEDS ORDERED: ONDANSETRON 4 MG/2 ML VIAL IVP STA (13:05)
[2021-10-25] MEDS ORDERED: HYDROmorphone 1 MG/ML CARPUJECT IVP STA ×2 (13:05→15:02)
--- NOTE | 2021-10-25 13:06 | ED Physician Documentation ---
PD HPI ABD PAIN - Stated complaint Stated Complaint: DIARRHEA X2 WEEKS, ABD PAIN - Chief complaint Chief Complaint: Abd Pain - History obtained from History obtained from: Patient - Additional information Additional information: 51-year-old woman with history of appendectomy and total hysterectomy presents with 2 weeks of upper abdominal pain especially in the right upper quadrant and epigastrium that is worse after eating associated with watery diarrhea. No associated fevers. She is been nauseous but no significant vomiting. She went to a walk-in clinic and was referred here for consideration for gallbladder issue. Review of Systems Ten Systems: 10 systems reviewed and negative Constitutional: denies: Fever, Chills Respiratory: denies: Dyspnea, Cough GI: reports: Abdominal Pain, Nausea, Diarrhea PD PAST MEDICAL HISTORY - Past Medical History Cardiovascular: Hypertension Respiratory: Asthma Neuro: Migraines Endocrine/Autoimmune: Type 2 diabetes GI: Chronic diarrhea WEDGER: None : None HEENT: Chronic vision loss Psych: Depression, Anxiety, Bipolar disorder, Schizophrenia, Panic attacks, Claustrophobia Musculoskeletal: Chronic back pain Derm: None - Past Surgical History Past Surgical History: Yes General: Appendectomy Ortho: Spine surgery, Other /WEDGER: Tubal ligation, 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 - Present Medications Home Medications: Ambulatory Orders Medication Instructions Recorded Confirmed QUEtiapine [SEROquel] 450 mg ORAL QPM 09/09/15 11/01/20 Ziprasidone HCl 80 mg ORAL QPM 09/09/15 11/01/20 Albuterol Sulfate [Proair Hfa 8.5 gm IH QID #1 hfa.aer.ad 09/20/15 11/01/20 Inhaler] Trazodone HCl 3 tab PO DAILY PM 09/13/17 11/01/20 Gabapentin 600 mg PO BID 01/07/19 11/01/20 Metformin HCl 500 mg PO DAILY 01/07/19 11/01/20 Topiramate 25 mg PO BID 01/07/19 11/01/20 Prazosin [Minipress] 2 mg PO DAILY 02/05/19 11/01/20 Sertraline HCl 150 mg PO DAILY 02/05/19 11/01/20 Potassium Chloride 1 tab DAILY 11/24/19 11/01/20 Aspirin [Aspirin EC] 81 mg PO DAILY 11/01/20 11/01/20 Atorvastatin [Lipitor] 40 mg PO DAILY 11/01/20 11/01/20 Cetirizine [ZyrTEC] 10 mg PO DAILY 11/01/20 11/01/20 Estradiol [Estrace] 0.5 mg PO DAILY 11/01/20 11/01/20 Furosemide [Lasix] 40 mg PO DAILY 11/01/20 11/01/20 Omeprazole 20 mg PO DAILY 11/01/20 11/01/20 Pantoprazole [Protonix] 20 mg PO DAILY 11/01/20 11/01/20 Doxycycline Hyclate 100 mg PO BID #14 01/30/21 Varenicline Tartrate [Chantix] 0.5 mg PO DAILY #11 tablet 01/30/21 Varenicline Tartrate [Chantix] 1 each PO BID #77 01/30/21 predniSONE [Deltasone] 20 mg PO [id number] #21 tab 01/30/21 Benzonatate [Tessalon] 100 mg PO TID PRN #20 cap 06/17/21 Doxycycline Hyclate 100 mg PO BID 5 Days #10 tab 06/17/21 dexAMETHasone [Decadron] 4 mg PO DAILY #5 tablet 06/17/21 Cefdinir 300 mg PO BID #20 cap 07/13/21 Codeine Phosphate/Guaifenesin 5 - 10 ml PO Q6HR PRN #200 ml 07/13/21 [Guaifen-Codeine 100-10 mg/5 ml] Nicotine 14 mg Patch [Nicoderm] 1 each TOP Q24H #14 patch 07/26/21 Nicotine 21 mg Patch [Nicoderm] 1 each TOP Q24H #14 patch 07/26/21 Nicotine 7 mg Patch [Nicoderm] 1 each TOP Q24H #14 patch 07/26/21 predniSONE [Deltasone] 20 mg PO [id number] #21 tab 07/26/21 Azithromycin [Zithromax] 250 mg PO UD 5 Days #6 tablet 09/24/21 predniSONE [Deltasone] 40 mg PO DAILY 5 Days #10 tablet 09/24/21 Oxycodone HCl/Acetaminophen 1 - 2 each PO Q6H PRN #14 tablet 10/10/21 [Percocet 5-325 mg Tablet] Ondansetron Odt [Zofran] 4 mg TL Q6H PRN #10 tablet 10/25/21 Oxycodone HCl/Acetaminophen 1 - 2 each PO Q6H PRN #10 tablet 10/25/21 [Percocet 5-325 mg Tablet] - Allergies Allergies/Adverse Reactions: Allergies Allergy/AdvReac Type Severity Reaction Status Date / Time amoxicillin [Amoxicillin] Allergy Intermediate Emesis Verified 10/25/21 12:28 aspartame Allergy Unknown Verified 10/25/21 12:28 chocolate flavor Allergy Unknown Verified 10/25/21 12:28 NSAIDS (Non-Steroidal Allergy Unknown Verified 10/25/21 12:28 Anti-Inflamma Penicillins Allergy Unknown Verified 10/25/21 12:28 wheat Allergy Unknown Verified 10/25/21 12:28 naproxen [From Naprosyn] AdvReac Intermediate Hives Verified 10/25/21 12:28 hydrocodone bitartrate * AdvReac Emesis Verified 10/25/21 12:28 [From Vicodin] lactase [From Dairy Aid] AdvReac Unknown Verified 10/25/21 12:28 - Social History Does the pt smoke?: Yes Smoking Status: Current every day smoker Does the pt drink ETOH?: No Does the pt have substance abuse?: No - Immunizations Immunizations are current?: Yes - POLST Patient has POLST: No PD ED PE NORMAL - Vitals Vital signs reviewed: Yes - General General: Alert and oriented X 3, No acute distress - HEENT HEENT: PERRL, EOMI - Neck Neck: Supple, no meningeal sign, No bony TTP - Cardiac Cardiac: RRR, No murmur - Respiratory Respiratory: No respiratory distress, Clear bilaterally - Abdomen Abdomen: Other (She is tender in the right upper quadrant and epigastrium with positive Whelan sign, no exquisite tenderness though.) - Back Back: No CVA TTP, No spinal TTP - Derm Derm: Normal color, Warm and dry - Extremities Extremities: No edema, No calf tenderness / cord - Neuro Neuro: Alert and oriented X 3, Normal speech Results - Vitals Vitals: Vital Signs - 24 hr 10/25/21 10/25/21 10/25/21 12:28 13:00 15:00 Temperature 36.5 C 36.6 C Heart Rate 70 80 Respiratory 16 16 Rate Blood Pressure 103/77 102/68 O2 Saturation 97 94 Oxygen O2 Source Room air - Labs Labs: Laboratory Tests 10/25/21 10/25/21 10/25/21 12:43 12:43 12:53 WBC 11.6 H RBC 5.35 Hgb 14.0 Hct 45.8 MCV 85.6 MCH 26.2 L MCHC 30.6 L RDW 18.0 H Plt Count 368 MPV 9.1 Neut # (Auto) 7.1 H Lymph # (Auto) 3.4 [place] # (Auto) 0.6 Eos # (Auto) 0.2 Baso # (Auto) 0.1 Absolute Nucleated RBC 0.00 Nucleated RBC % 0.0 Sodium 138 Potassium 3.5 Chloride 103 Carbon Dioxide 23 Anion Gap 12.0 BUN 8 Creatinine 1.1 H Estimated GFR (MDRD) 52 L Glucose 123 H Calcium 9.4 Total Bilirubin 0.6 AST 18 ALT 23 Alkaline Phosphatase 105 Total Protein 8.3 H Albumin 4.7 Globulin 3.6 Albumin/Globulin Ratio 1.3 Lipase 42 Urine Color YELLOW Urine Clarity CLEAR Urine pH 5.5 Ur Specific [place] 1.010 Urine Protein NEGATIVE Urine Glucose (UA) NEGATIVE Urine Ketones NEGATIVE Urine Occult Blood NEGATIVE Urine Nitrite NEGATIVE Urine Bilirubin NEGATIVE Urine Urobilinogen 0.2 (NORMAL) Ur Leukocyte Esterase NEGATIVE Ur Microscopic Review NOT INDICATED Urine Culture Comments NOT INDICATED PD MEDICAL DECISION MAKING - ED course ED course: 51-year-old woman with 2 weeks of diarrhea and right-sided abdominal pain sent from the walk-in clinic for evaluation for gallbladder issue although this seems atypical with the prominence of the diarrhea. Both ultrasound and CT imaging were negative. Labs showing mild leukocytosis but this was chronic looking at old labs. Otherwise work-up was negative. She was unable to give a stool sample prior to discharge and was given a lab requisition for an outpatient stool culture, C. difficile test, Giardia EIA, and ova and parasites. Departure - Departure Disposition: 01 Home, Self Care Clinical Impression: Diarrhea, Abdominal pain Condition: Good Record reviewed to determine appropriate education?: Yes Instructions: ED Abdominal Pain Female Non-Specific Abdominal Pain, ED Gastroenteritis Report Pend Prescriptions: Oxycodone HCl/Acetaminophen [Percocet 5-325 mg Tablet] 1 - 2 each PO Q6H PRN #10 tablet PRN Reason: pain Ondansetron Odt [Zofran] 4 mg TL Q6H PRN #10 tablet PRN Reason: Nausea / Vomiting Comments: You were seen today for right-sided abdominal pain Leanne sent your prescription electronically to [facility] in [place]. Area of 2 weeks duration, ultrasound of your gallbladder and CT of the abdomen were unremarkable. Labs were for the most part normal other than a very mildly elevated white blood cell counts, but looking back at prior labs, your white blood cell count is always mildly elevated. We are obtaining stool for culture and other testing and will call you if anything becomes positive that requires antibiotic therapy. Follow-up with your primary care physician, next available appointment. Return for new or worsening symptoms. I am prescribing a short course of narcotic pain medication for you. These are potentially dangerous and addictive medications that should be used carefully. These medications may constipate you. Take an [id number] stool softener (docusate) twice daily with plenty of water while taking these medications. If you go 24 hours without a bowel movement, take [id number] miralax, per package instructions. Do not drink or drive while taking these medications. If you received narcotic or sedating medications while in the emergency department, do not drive for 24 hours. Store this medication in a safe, secure place and out of reach of children. It is a violation of federal law to give or sell this medication to another person or to use in a manner other than prescribed. The ED will not refill narcotic prescriptions, including prescriptions lost or stolen. To dispose of unwanted medications: 1. [facility] at [address] in [place] has a medication drop box. They accept prescription medications (in pill form) Monday through Monday 9:00 a.m. to 5:00 p.m. 2. The [facility] [employer] accepts prescription medications (in pill form only) for disposal year round. Call for more information. 3. Contact the [facility] for the next [facility] sponsored prescription drug collection event. , [phone], or [phone]; Note that many narcotic pain relievers also contain Tylenol/acetaminophen. Please ensure that your total dose of acetaminophen from all sources does not exceed 3 g (3000 mg) per day.
--- NOTE | 2021-10-25 14:09 | Ultrasound Report ---
PROCEDURE: Abdomen Limited INDICATIONS: RUQ pain TECHNIQUE: Real-time focused scanning was performed of the right upper quadrant, with image documentation. COMPARISON: HIDA scan 10/18/2021, abdominal ultrasound 10/10/2021 FINDINGS: The liver demonstrates increased hepatic echogenicity. No discrete hepatic mass identified. Gallbladder appears within normal limits without gallstones, wall thickening, or pericholecystic flui d. No intra or extra hepatic biliary ductal dilatation. The common bile duct measures up to 5 mm. The pancreas appears grossly unremarkable sonographically. The pancreatic tail was not well seen. Right kidney measures 12.2 cm. No hydronephrosis. IMPRESSION: 1. No evidence for cholelithiasis or cholecystitis. 2. No biliary ductal dilatation. 3. Slightly increased hepatic echogenicity suggestive of steatosis. Reviewed by: Franky Vega MD on 10/25/2021 2:07 PM PST Approved by: Franky Vega MD on 10/25/2021 2:07 PM PST Station ID: [id number]
[2021-10-25] MEDS ORDERED: IOVERSOL 320 100 ML VIAL IVP ONE ×2 (14:27→14:44)
--- NOTE | 2021-10-25 14:56 | CT Report ---
PROCEDURE: Abdomen/Pelvis W INDICATIONS: IV only, R abd pain, diarrhea, no appendix CONTRAST: Optiray 320 mL TECHNIQUE: After the administration of intravenous contrast, 5 mm thick sections acquired from the diaphragms to the symphysis. 5 mm thick coronal and sagittal reformats were acquired. For radiation dose reducti on, the following was used: automated exposure control, adjustment of mA and/or kV according to shama ent size. COMPARISON: 10/25/2021 abdominal ultrasound and 10/10/2021 CT abdomen and pelvis FINDINGS: Image quality: Excellent. ABDOMEN: Lung bases: Lung bases are clear. Heart size is normal. Solid organs: Liver and spleen are normal in size and enhancement. Gallbladder is normal. Biliary system is non dilated. Pancreas enhances normally. No adrenal nodules. Kidneys demonstrate normal size and enhancement, without hydronephrosis. Peritoneum and bowel: Sigmoid diverticulosis redemonstrated. Bowel loops demonstrate normal wall thic kness and caliber. No free fluid or air. Nodes and vessels: No retroperitoneal or mesenteric adenopathy by size criteria. Aorta and inferior vena cava are normal in size. Miscellaneous: No ventral hernias. PELVIS: Genitourinary: Bladder wall thickness is normal. Miscellaneous: No inguinal hernias or adenopathy. Bones: No suspicious bony lesions. No vertebral body compression fractures. IMPRESSION: Unremarkable CT of the abdomen and pelvis with no acute finding. Reviewed by: Nico Li MD on 10/25/2021 2:55 PM PST Approved by: Nico Li MD on 10/25/2021 2:55 PM PST Station ID: [id number]
[2021-10-25 15:16] VITALS: BP 102/68
== END 2021-10-25 15:50 | disposition home or self-care (01) ==
LOC: ED 12:16
DX: R10.13 Epigastric pain (principal); R19.7 Diarrhea, unspecified; E11.9 Type 2 diabetes mellitus without complications; Z79.84 Long term (current) use of oral hypoglycemic drugs; F17.200 Nicotine dependence, unspecified, uncomplicated
CPT/HCPCS: 36415; 74177; 76705; 80053; 81003; 83690; 85025; 96374; 96375; 96376; 99284; J1170; Q9967; 81001; 87086

== ENCOUNTER 2021-10-27 08:00 | Outpatient (CLI) | payer MEDICARE, MEDICAID | END 2021-10-27 23:59 | disposition home or self-care (01) | LOC: LAB 08:00 | PROVIDERS: ATTEND Family Medicine | DX: R10.9 Unspecified abdominal pain (principal); R19.7 Diarrhea, unspecified | CPT/HCPCS: 81599; 87045; 87177; 87209; 87329; 87427; 87449; 87493 ==

== ENCOUNTER 2021-11-01 08:21 | Outpatient (CLI) | payer MEDICARE, MEDICAID ==
[2021-11-01 12:04] LABS: BASOPHILS # (AUTO) 0.1 10^3/uL (0.0-0.1); BASOPHILS % (AUTO) 0.9 %; EOSINOPHILS # (AUTO) 0.1 10^3/uL (0.0-0.7); EOSINOPHILS % (AUTO) 1.3 %; HGB - HEMOGLOBIN 14.4 g/dL (12.0-16.0); LYMPHOCYTES # (AUTO) 2.4 10^3/uL (1.5-3.5); LYMPHOCYTES % (AUTO) 24.5 %; MEAN CORPUSCULAR HEMOGLOBIN 27.1 pg (27.0-31.0); MEAN CORPUSCULAR HGB CONC 31.3 g/dL (32.0-36.0); MEAN CORPUSCULAR VOLUME 86.6 fL (81.0-99.0); MEAN PLATELET VOLUME 10.7 fL (7.9-10.8); MONOCYTES # (AUTO) 0.5 10^3/uL (0.0-1.0); MONOCYTES % (AUTO) 5.1 %; NEUTROPHILS # (AUTO) 6.6 10^3/uL (1.5-6.6); NEUTROPHILS % (AUTO) 67.9 %; PLT - PLATELET COUNT 341 10^3/uL (130-450); RED BLOOD COUNT 5.31 10^6/uL (4.20-5.40); RED CELL DISTRIBUTION WIDTH 17.4 % (12.0-15.0); WHITE BLOOD COUNT 9.7 x10^3/uL (4.8-10.8)
[2021-11-01 12:25] LABS: ALBUMIN 4.2 g/dL (3.2-5.5); ALBUMIN/GLOBULIN RATIO 1.3 (1.0-2.2); ALKALINE PHOSPHATASE 96 IU/L (42-121); ALT ALANINE AMINOTRANSFERASE 19 IU/L (10-60); AST ASPARTATE AMINOTRANSFERASE 13 IU/L (10-42); BILIRUBIN,TOTAL 0.2 mg/dL (0.2-1.0); BUN - BLOOD UREA NITROGEN 10 mg/dL (6-20); CALCIUM 9.1 mg/dL (8.5-10.3); CARBON DIOXIDE - CO2 25 mmol/L (21-32); CHLORIDE 102 mmol/L (101-111); CHOL/HDL RATIO 3.9 (<4.4); CHOLESTEROL 116 mg/dL; CREATININE 1.1 mg/dL (0.4-1.0); GFR - MDRD 52 (>89); GLUCOSE 105 mg/dL (70-100); HDL CHOLESTEROL 30 mg/dL; LDL CHOLESTEROL,CALCULATED 40 mg/dL; LDL/HDL RATIO 1.3 (<4.4); POTASSIUM 3.3 mmol/L (3.5-5.0); SODIUM 137 mmol/L (135-145); TOTAL PROTEIN 7.5 g/dL (6.7-8.2); TRIGLYCERIDES 232 mg/dL; VLDL CHOLESTEROL 46 mg/dL
[2021-11-01 12:38] LABS: ESTIMATED AVERAGE GLUCOSE 128 mg/dL (70-100); HEMOGLOBIN A1c% 6.1 % (4.27-6.07)
[2021-11-01 12:50] LABS: THYROID STIMULATING HORMONE 3.98 uIU/mL (0.34-5.60)
== END 2021-11-01 08:22 | disposition home or self-care (01) ==
LOC: LAB.N 08:21
PROVIDERS: ATTEND Family Medicine
DX: E11.22 Type 2 diabetes mellitus with diabetic chronic kidney disease (principal); N18.2 Chronic kidney disease, stage 2 (mild); G47.33 Obstructive sleep apnea (adult) (pediatric); I27.81 Cor pulmonale (chronic); M54.17 Radiculopathy, lumbosacral region; K21.9 Gastro-esophageal reflux disease without esophagitis
CPT/HCPCS: 36415; 80053; 80061; 83036; 83721; 84443; 85025

== ENCOUNTER 2021-11-10 18:03 | Emergency (ER) | payer MEDICARE, MEDICAID ==
--- NOTE | 2021-11-10 18:45 | XRAY Report ---
PROCEDURE: Chest 1 View X-Ray INDICATIONS: cough TECHNIQUE: One view of the chest was acquired. COMPARISON: 10/17/2021 FINDINGS: Surgical changes and devices: None. Lungs and pleura: There is diffuse interstitial prominence which appears less pronounced compared to the prior study. No definite vascular congestion identified. No focal consolidations. No substantial pleural effusion visualized. No pneumothorax Mediastinum: Mediastinal contours appear normal. Heart size is normal. Bones and chest wall: No suspicious bony lesions. Overlying soft tissues appear unremarkable. IMPRESSION: Improved but persistent diffuse interstitial prominence without focal consolidation or substantial pl eural effusion. Findings are nonspecific and may represent an infectious or inflammatory process. Pul monary edema felt less likely. Reviewed by: Saeid Celaya MD on 11/10/2021 5:43 PM [place] Approved by: Saeid Celaya MD on 11/10/2021 5:43 PM [place] Station ID: [id number]
[2021-11-10] MEDS ORDERED: IPRATROPIUM/ALBUTEROL 3 ML NEB INH STA (20:48)
[2021-11-10] MEDS ORDERED: predniSONE 20 MG TABLET PO STA (20:48)
--- NOTE | 2021-11-10 21:33 | ED Physician Documentation ---
PD HPI DYSPNEA - Stated complaint Stated Complaint: UPPER BACK PAIN, SOA - Chief complaint Chief Complaint: Resp - History obtained from History obtained from: Patient - History of Present Illness Timing - onset: Today Pain level max: 3 Pain level now: 2 Recently seen: Not recently seen - Additional information Additional information: Patient is a 51-year-old female with a history of COPD who states that she feels like she has increased wheezing and chest tightness. Her inhaler helps but is not working as well as usual. No fevers. No chills. She is concerned about potential pneumonia. No fevers. Mild, dry cough Review of Systems Constitutional: denies: Fever, Chills Nose: denies: Rhinorrhea / runny nose Throat: denies: Sore throat Cardiac: denies: Chest pain / pressure Respiratory: denies: Cough GI: denies: Nausea, Vomiting, Diarrhea Musculoskeletal: denies: Neck pain, Back pain Neurologic: denies: Headache PD PAST MEDICAL HISTORY - Past Medical History Past Medical History: Yes Cardiovascular: Hypertension Respiratory: Asthma Neuro: Migraines Endocrine/Autoimmune: Type 2 diabetes GI: Chronic diarrhea THERAPEUTIC MASSAGE TECHNICIAN: None : None HEENT: Chronic vision loss Psych: Depression, Anxiety, Bipolar disorder, Schizophrenia, Panic attacks, Claustrophobia Musculoskeletal: Chronic back pain Derm: None - Past Surgical History Past Surgical History: Yes General: Appendectomy Ortho: Spine surgery, Other /THERAPEUTIC MASSAGE TECHNICIAN: Tubal ligation, 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 - Present Medications Home Medications: Ambulatory Orders Medication Instructions Recorded Confirmed QUEtiapine [SEROquel] 450 mg ORAL QPM 09/09/15 11/10/21 Ziprasidone HCl 80 mg ORAL QPM 09/09/15 11/10/21 Albuterol Sulfate [Proair Hfa 8.5 gm IH QID #1 hfa.aer.ad 09/20/15 11/10/21 Inhaler] Trazodone HCl 3 tab PO DAILY PM 09/13/17 11/10/21 Gabapentin 600 mg PO BID 01/07/19 11/10/21 Metformin HCl 500 mg PO DAILY 01/07/19 11/10/21 Topiramate 25 mg PO BID 01/07/19 11/10/21 Prazosin [Minipress] 2 mg PO DAILY 02/05/19 11/10/21 Sertraline HCl 150 mg PO DAILY 02/05/19 11/10/21 Potassium Chloride 1 tab DAILY 11/24/19 11/10/21 Aspirin [Aspirin EC] 81 mg PO DAILY 11/01/20 11/10/21 Atorvastatin [Lipitor] 40 mg PO DAILY 11/01/20 11/10/21 Cetirizine [ZyrTEC] 10 mg PO DAILY 11/01/20 11/10/21 Estradiol [Estrace] 0.5 mg PO DAILY 11/01/20 11/10/21 Furosemide [Lasix] 40 mg PO DAILY 11/01/20 11/10/21 Omeprazole 20 mg PO DAILY 11/01/20 11/10/21 Pantoprazole [Protonix] 20 mg PO DAILY 11/01/20 11/10/21 Varenicline Tartrate [Chantix] 0.5 mg PO DAILY #11 tablet 01/30/21 11/10/21 Varenicline Tartrate [Chantix] 1 each PO BID #77 01/30/21 11/10/21 dexAMETHasone [Decadron] 4 mg PO DAILY #5 tablet 06/17/21 11/10/21 Ondansetron Odt [Zofran] 4 mg TL Q6H PRN #10 tablet 10/25/21 11/10/21 predniSONE [Deltasone] 10 mg PO [id number] #42 tab 11/10/21 - Allergies Allergies/Adverse Reactions: Allergies Allergy/AdvReac Type Severity Reaction Status Date / Time amoxicillin [Amoxicillin] Allergy Intermediate Emesis Verified 11/10/21 18:22 aspartame Allergy Unknown Verified 11/10/21 18:22 chocolate flavor Allergy Unknown Verified 11/10/21 18:22 NSAIDS (Non-Steroidal Allergy Unknown Verified 11/10/21 18:22 Anti-Inflamma Penicillins Allergy Unknown Verified 11/10/21 18:22 wheat Allergy Unknown Verified 11/10/21 18:22 naproxen [From Naprosyn] AdvReac Intermediate Hives Verified 11/10/21 18:22 hydrocodone bitartrate * AdvReac Emesis Verified 11/10/21 18:22 [From Vicodin] lactase [From Dairy Aid] AdvReac Unknown Verified 11/10/21 18:22 - Social History Does the pt smoke?: Yes Smoking Status: Current every day smoker Does the pt drink ETOH?: No Does the pt have substance abuse?: No - Immunizations Immunizations are current?: Yes - POLST Patient has POLST: No PD ED PE NORMAL - Vitals Vital signs reviewed: Yes - General General: Alert and oriented X 3, No acute distress - HEENT HEENT: Moist mucous membranes - Neck Neck: Supple, no meningeal sign - Cardiac Cardiac: RRR, Strong equal pulses - Respiratory Respiratory: No respiratory distress, Other (Mildly diminished breath sounds. Mild wheeze.) - Abdomen Abdomen: Normal bowel sounds, Soft, Non tender, Non distended - Derm Derm: Warm and dry - Extremities Extremities: No edema - Neuro Neuro: Alert and oriented X 3 - Psych Psych: Normal mood, Normal affect Results - Vitals Vitals: Vital Signs - 24 hr 11/10/21 11/10/21 11/10/21 18:16 21:11 21:37 Temperature 36.4 C L 35.9 C L Heart Rate 63 92 82 Respiratory 18 22 18 Rate Blood Pressure 105/68 101/97 H O2 Saturation 96 96 Oxygen O2 Source Room air - Rads (name of study) Chest x-ray Radiology: Final report received, EMP read contemporaneously, See rad report (Improved but persistent diffuse interstitial prominence without focal consolidation or substantial pleural effusion. Findings nonspecific may represent infectious or inflammatory process. Pulmonary edema less likely) PD MEDICAL DECISION MAKING - ED course Complexity details: reviewed results, re-evaluated patient, considered differential, d/w patient ED course: Patient feels much better after DuoNeb treatment and steroids. Will place on a steroid taper for home. Patient is well-appearing, nontoxic. Afebrile. Patient counseled regarding signs and symptoms for which I believe and urgent re-evaluation would be necessary. Patient with good understanding of and agreement to plan and is comfortable going home at this time This document was made in part using voice recognition software. While efforts are made to proofread this document, sound alike and grammatical errors may occur. Departure - Departure Disposition: 01 Home, Self Care Clinical Impression: COPD (chronic obstructive pulmonary disease) Qualifiers: COPD type: unspecified COPD Qualified Code(s): J44.9 - Chronic obstructive pulmonary disease, unspecified Condition: Good Instructions: ED COPD Flare Follow-Up: Henrique Ortiz MD [Primary Care Provider] - Within 1 week Prescriptions: predniSONE [Deltasone] 10 mg PO [id number] #42 tab Comments: Please follow-up with your doctor for further care. Return if you worsen. Your prescriptions were sent to [facility] in [place]. Discharge Date/Time: 11/10/21 21:37
[2021-11-10 22:21] VITALS: BP 101/97
== END 2021-11-10 21:37 | disposition home or self-care (01) ==
LOC: ED 18:03
DX: J44.9 Chronic obstructive pulmonary disease, unspecified (principal); E11.9 Type 2 diabetes mellitus without complications; Z79.84 Long term (current) use of oral hypoglycemic drugs; I10 Essential (primary) hypertension; F17.200 Nicotine dependence, unspecified, uncomplicated
CPT/HCPCS: 71045; 94640; 94664; 99283; 99284; J7512

== ENCOUNTER 2021-11-16 08:00 | Outpatient (CLI) | payer MEDICARE, MEDICAID | END 2021-11-16 23:59 | disposition home or self-care (01) | LOC: LAB.N 08:00 | PROVIDERS: ATTEND Nurse Practitioner | DX: R05.9 Cough, unspecified (principal); R07.0 Pain in throat; Z20.822 Contact with and (suspected) exposure to COVID-19 ==

== ENCOUNTER 2022-02-18 18:36 | Emergency (ER) | payer MEDICARE, MEDICAID ==
[2022-02-18] MEDS ORDERED: IPRATROPIUM/ALBUTEROL 3 ML NEB INH STA (19:33)
[2022-02-18] MEDS ORDERED: predniSONE 20 MG TABLET PO STA (19:33)
--- NOTE | 2022-02-18 19:33 | XRAY Report ---
PROCEDURE: Chest 1 View X-Ray INDICATIONS: Shortness of air TECHNIQUE: One view of the chest was acquired. COMPARISON: 11/10/2021 FINDINGS: Surgical changes and devices: Right-sided cord stimulator leads are again seen projecting in mid thor acic spine level. Lungs and pleura: No pleural effusions or pneumothorax. Mild bronchial wall thickening in bilateral hilar region are seen. No definite focal infiltrate. Mediastinum: Mediastinal contours appear normal. Heart size is normal. Bones and chest wall: No suspicious bony lesions. Overlying soft tissues appear unremarkable. IMPRESSION: Suggestion of mild reactive airway disease such as bronchitis or asthma. No definite focal infiltrate , pleural effusion or pneumothorax. Reviewed by: Fausto Cardoso MD on 02/18/2022 7:32 PM PDT Approved by: Fausto Cardoso MD on 02/18/2022 7:32 PM PDT Station ID: [id number]
--- NOTE | 2022-02-18 19:36 | ED Physician Documentation ---
History of Present Illness - Stated complaint Stated Complaint: SOA/BACK PX/HEADACHE - Chief complaint Chief Complaint: Resp - Additonal information Additional information: 51-year-old female who has a history of active tobacco use as well as COPD on nighttime oxygen only presents to the emergency department for evaluation of a few weeks worsening productive cough. She has been using albuterol at home but does not feel that it improves her wheeze. There have been no fevers or hemoptysis. No weight loss. She has some pain in her left upper trapezius area from coughing. No vomiting. She is feeling somewhat lightheaded. She denies focal chest pain, any syncope. Review of Systems Constitutional: denies: Fever Cardiac: denies: Chest pain / pressure, Palpitations Respiratory: reports: Dyspnea, Cough, Wheezing GI: reports: Reviewed and negative : reports: Reviewed and negative Skin: reports: Reviewed and negative PD PAST MEDICAL HISTORY - Past Medical History Cardiovascular: Hypertension Respiratory: Asthma Neuro: Migraines Endocrine/Autoimmune: Type 2 diabetes GI: Chronic diarrhea BUSINESS INTEGRATION ANALYST: None : None HEENT: Chronic vision loss Psych: Depression, Anxiety, Bipolar disorder, Schizophrenia, Panic attacks, Claustrophobia Musculoskeletal: Chronic back pain Derm: None - Past Surgical History Past Surgical History: Yes General: Appendectomy Ortho: Spine surgery, Other /BUSINESS INTEGRATION ANALYST: Tubal ligation, 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 - Present Medications Home Medications: Ambulatory Orders Medication Instructions Recorded Confirmed QUEtiapine [SEROquel] 450 mg ORAL QPM 09/09/15 11/10/21 Ziprasidone HCl 80 mg ORAL QPM 09/09/15 11/10/21 Albuterol Sulfate [Proair Hfa 8.5 gm IH QID #1 hfa.aer.ad 09/20/15 11/10/21 Inhaler] Trazodone HCl 3 tab PO DAILY PM 09/13/17 11/10/21 Gabapentin 600 mg PO BID 01/07/19 11/10/21 Metformin HCl 500 mg PO DAILY 01/07/19 11/10/21 Topiramate 25 mg PO BID 01/07/19 11/10/21 Prazosin [Minipress] 2 mg PO DAILY 02/05/19 11/10/21 Sertraline HCl 150 mg PO DAILY 02/05/19 11/10/21 Potassium Chloride 1 tab DAILY 11/24/19 11/10/21 Aspirin [Aspirin EC] 81 mg PO DAILY 11/01/20 11/10/21 Atorvastatin [Lipitor] 40 mg PO DAILY 11/01/20 11/10/21 Cetirizine [ZyrTEC] 10 mg PO DAILY 11/01/20 11/10/21 Estradiol [Estrace] 0.5 mg PO DAILY 11/01/20 11/10/21 Furosemide [Lasix] 40 mg PO DAILY 11/01/20 11/10/21 Omeprazole 20 mg PO DAILY 11/01/20 11/10/21 Pantoprazole [Protonix] 20 mg PO DAILY 11/01/20 11/10/21 Varenicline Tartrate [Chantix] 0.5 mg PO DAILY #11 tablet 01/30/21 11/10/21 Varenicline Tartrate [Chantix] 1 each PO BID #77 01/30/21 11/10/21 dexAMETHasone [Decadron] 4 mg PO DAILY #5 tablet 06/17/21 11/10/21 Ondansetron Odt [Zofran] 4 mg TL Q6H PRN #10 tablet 10/25/21 11/10/21 predniSONE [Deltasone] 10 mg PO [id number] #42 tab 11/10/21 Azithromycin [Zithromax] 0 mg PO DAILY #6 tablet 02/18/22 predniSONE [Deltasone] 40 mg PO DAILY 5 Days #10 tablet 02/18/22 - Allergies Allergies/Adverse Reactions: Allergies Allergy/AdvReac Type Severity Reaction Status Date / Time amoxicillin [Amoxicillin] Allergy Intermediate Emesis Verified 02/18/22 18:50 aspartame Allergy Unknown Verified 02/18/22 18:50 chocolate flavor Allergy Unknown Verified 02/18/22 18:50 NSAIDS (Non-Steroidal Allergy Unknown Verified 02/18/22 18:50 Anti-Inflamma Penicillins Allergy Unknown Verified 02/18/22 18:50 wheat Allergy Unknown Verified 02/18/22 18:50 naproxen [From Naprosyn] AdvReac Intermediate Hives Verified 02/18/22 18:50 hydrocodone bitartrate * AdvReac Emesis Verified 02/18/22 18:50 [From Vicodin] lactase [From Dairy Aid] AdvReac Unknown Verified 02/18/22 18:50 - Social History Does the pt smoke?: Yes Smoking Status: Current every day smoker Does the pt drink ETOH?: No Does the pt have substance abuse?: No - Immunizations Immunizations are current?: Yes - POLST Patient has POLST: No PD ED PE NORMAL - General General: Alert and oriented X 3, No acute distress, Well developed/nourished - HEENT HEENT: Atraumatic, Moist mucous membranes - Neck Neck: Supple, no meningeal sign - Cardiac Cardiac: RRR, No murmur, No gallop - Respiratory Respiratory: No respiratory distress. No: Clear bilaterally (Faint scattered expiratory wheeze. Good air entry globally. No rhonchi or crackles) - Abdomen Abdomen: Normal bowel sounds, Soft - Back Back: No CVA TTP, No spinal TTP - Derm Derm: Normal color, Warm and dry - Extremities Extremities: No deformity, No tenderness to palpate, Normal ROM s pain - Neuro Neuro: Alert and oriented X 3, trust advisor 2-12 intact Eye Opening: Spontaneous Motor: Obeys Commands Verbal: Oriented GCS Score: 15 Results - Vitals Vitals: Vital Signs - 24 hr 02/18/22 02/18/22 18:47 19:55 Temperature 36.7 C Heart Rate 68 63 Respiratory 18 10 L Rate Blood Pressure 115/78 O2 Saturation 97 Oxygen O2 Source Room air - EKG (time done) 1948 Rate: Rate (enter#) (62) Rhythm: NSR [place]: RAD Intervals: Normal CO QRS: Low voltage Ischemia: Normal ST segments Compare to prior EKG: Unchanged from prior EKG Computer interpretation: Agree with computer - Labs Labs: Laboratory Tests 02/18/22 02/18/22 02/18/22 19:37 19:37 19:37 WBC 11.9 H RBC 4.96 Hgb 14.1 Hct 44.2 MCV 89.1 MCH 28.4 MCHC 31.9 L RDW 19.3 H Plt Count 291 MPV 9.7 Neut # (Auto) 6.9 H Lymph # (Auto) 4.0 H [place] # (Auto) 0.7 Eos # (Auto) 0.2 Baso # (Auto) 0.1 Absolute Nucleated RBC 0.00 Nucleated RBC % 0.0 Sodium 140 Potassium 3.2 L Chloride 105 Carbon Dioxide 25 Anion Gap 10.0 BUN 9 Creatinine 1.1 H Estimated GFR (MDRD) 52 L Glucose 97 Calcium 8.9 Total Bilirubin 0.3 AST 17 ALT 21 Alkaline Phosphatase 84 Troponin I High Sens < 2.3 L B-Natriuretic Peptide Total Protein 8.2 Albumin 4.8 Globulin 3.4 Albumin/Globulin Ratio 1.4 Lipase 30 02/18/22 19:37 WBC RBC Hgb Hct MCV MCH MCHC RDW Plt Count MPV Neut # (Auto) Lymph # (Auto) [place] # (Auto) Eos # (Auto) Baso # (Auto) Absolute Nucleated RBC Nucleated RBC % Sodium Potassium Chloride Carbon Dioxide Anion Gap BUN Creatinine Estimated GFR (MDRD) Glucose Calcium Total Bilirubin AST ALT Alkaline Phosphatase Troponin I High Sens B-Natriuretic Peptide 19 Total Protein Albumin Globulin Albumin/Globulin Ratio Lipase - Rads (name of study) cxr Radiology: Final report received (Mild reactive airway disease such as bronchitis. No definite focal infiltrate, pleural effusion or pneumothorax) PD MEDICAL DECISION MAKING - ED course Complexity details: reviewed results, re-evaluated patient, considered differential, d/w patient ED course: 51-year-old female who has a history of COPD, oxygen dependent with nighttime use only, presents emergency department for productive cough going on about 2 weeks. No fevers or hemoptysis. On presentation her room air sats are in the mid 90s. However she does have diffuse scattered expiratory wheeze. This fully resolved after a DuoNeb was administered. Chest x-ray did not reveal any focal pathology. Screening labs including high-sensitivity troponin and EKG were negative. At this time patient will be treated for COPD exacerbation. Initial dose of steroids given in the ER. Emergent return precautions were discussed for worsening symptoms Departure - Departure Disposition: 01 Home, Self Care Clinical Impression: COPD exacerbation Condition: Stable Record reviewed to determine appropriate education?: Yes Instructions: COPD Dc Prescriptions: predniSONE [Deltasone] 40 mg PO DAILY 5 Days #10 tablet Azithromycin [Zithromax] 0 mg PO DAILY #6 tablet Comments: Jaqui you are seen today in the emergency department for cough and shortness of air that began about 2 weeks ago. Your chest x-ray does not show pneumonia. Your screening labs showed no worrisome findings. However I am going to treat you for a COPD exacerbation. Please feel the prescription for the steroids as well as the antibiotic. [facility] With the steroids and the antibiotic I would expect improved symptoms over the next 48 to 72 hours. This should include reduced shortness of air, wheeze and reduced cough. If your symptoms are worsening, you develop fevers have severe shortness of air or chest pain then please return to the ER for second evaluation.
[2022-02-18 19:43] LABS: BASOPHILS # (AUTO) 0.1 10^3/uL (0.0-0.1); BASOPHILS % (AUTO) 0.6 %; EOSINOPHILS # (AUTO) 0.2 10^3/uL (0.0-0.7); EOSINOPHILS % (AUTO) 1.5 %; HCT - HEMATOCRIT 44.2 % (37.0-47.0); HGB - HEMOGLOBIN 14.1 g/dL (12.0-16.0); LYMPHOCYTES % (AUTO) 33.8 %; MEAN CORPUSCULAR HEMOGLOBIN 28.4 pg (27.0-31.0); MEAN CORPUSCULAR HGB CONC 31.9 g/dL (32.0-36.0); MEAN CORPUSCULAR VOLUME 89.1 fL (81.0-99.0); MEAN PLATELET VOLUME 9.7 fL (7.9-10.8); MONOCYTES # (AUTO) 0.7 10^3/uL (0.0-1.0); MONOCYTES % (AUTO) 6.2 %; NEUTROPHILS # (AUTO) 6.9 10^3/uL (1.5-6.6); NEUTROPHILS % (AUTO) 57.6 %; PLT - PLATELET COUNT 291 10^3/uL (130-450); RED BLOOD COUNT 4.96 10^6/uL (4.20-5.40); RED CELL DISTRIBUTION WIDTH 19.3 % (12.0-15.0); WHITE BLOOD COUNT 11.9 x10^3/uL (4.8-10.8)
[2022-02-18 19:58] LABS: ALBUMIN 4.8 g/dL (3.2-5.5); ALBUMIN/GLOBULIN RATIO 1.4 (1.0-2.2); BILIRUBIN,TOTAL 0.3 mg/dL (0.2-1.0); CALCIUM 8.9 mg/dL (8.5-10.3); CREATININE 1.1 mg/dL (0.4-1.0); POTASSIUM 3.2 mmol/L (3.5-5.0); TOTAL PROTEIN 8.2 g/dL (6.7-8.2)
[2022-02-18 20:53] VITALS: BP 101/63
== END 2022-02-18 21:15 | disposition home or self-care (01) ==
LOC: ED 18:36
DX: J44.1 Chronic obstructive pulmonary disease with (acute) exacerbation (principal); Z99.81 Dependence on supplemental oxygen; E11.9 Type 2 diabetes mellitus without complications; Z79.84 Long term (current) use of oral hypoglycemic drugs; I10 Essential (primary) hypertension; F17.200 Nicotine dependence, unspecified, uncomplicated
CPT/HCPCS: 36415; 71045; 80053; 83690; 83880; 84484; 85025; 93005; 94640; 99283; 99284; J7512